=== PATIENT | male | born 1945 | race Caucasian/White ===

== ENCOUNTER 2024-01-01 00:23 | Inpatient (IN) | payer MEDICARE, SELFPAY ==
[2024-01-01] VITALS (50 sets, daily range): BP systolic 80–143; BP diastolic 36–90; PULSE 62–127; RESP 18–37; TEMP 36.5–37.6; O2SAT 86–100; BMI 33.2; BMI 32.3
--- NOTE | 2024-01-01 00:24 | ECG_ITS ---
APPROVED REPORT Exam: Resting ECG HR:121 bpm ECG Measurements Heart Rate 121 AXES WV 162 P 31 QRSd 84 QRS 51 QT 278 T 45 QTc 350 Conclusion SINUS TACHYCARDIA WITH OCCASIONAL SUPRAVENTRICULAR PREMATURE COMPLEXES LOW QRS VOLTAGE IN PRECORDIAL LEADS [QRS DEFLECTION < 1.0 mV IN CHEST LEADS] POSSIBLE INFERIOR MYOCARDIAL INFARCTION , PROBABLY OLD [30 ms Q WAVE IN II/aVF] ABNORMAL RHYTHM ECG UNCONFIRMED REPORT Electronically signed by : Jose Luis Cheng MD 01/02/2024 21:47:38
--- NOTE | 2024-01-01 00:26 | XR_ITS ---
PROCEDURE INFORMATION: Exam: XR Chest Exam date and time: 01/01/2024 12:45 AM Age: 78 years old Clinical indication: Shortness of breath; Additional info: Copd SOA TECHNIQUE: Imaging protocol: Radiologic exam of the chest. Views: 1 view. COMPARISON: No relevant prior studies available. FINDINGS: Lungs: Right mid lung pneumonia. Additional patchy consolidation in the left lower lobe. Pleural spaces: No large effusion or pneumothorax. Heart/Mediastinum: No evidence of mediastinal widening or cardiac silhouette enlargement; the mediastinum and heart appear within normal limits for contour and size. Vasculature: There are calcifications of the aortic arch. Bones/joints: No evidence of acute osseous abnormalities within the visualized portions of the thoracic spine and ribs. Osseous structures appear appropriate for patient age. IMPRESSION: Right mid lung pneumonia.
--- NOTE | 2024-01-01 00:32 | HMH.EDGENADL ---
Discharge Plan Disposition Patient Disposition: Admitted Prescriptions Prescriptions: No Action famotidine 40 mg Tablet 40 mg PO BID prednisone 20 mg Tablet 20 mg PO BID clopidogrel 75 mg Tablet 75 mg PO DAILY amlodipine 5 mg Tablet 5 mg PO DAILY ascorbic acid (vitamin C) [Vitamin C] 500 mg Tablet 500 mg PO DAILY duloxetine 60 mg Capsule,Delayed Release(Dr/Ec) 60 mg PO DAILY dapagliflozin propanediol [Farxiga] 10 mg Tablet 10 mg PO DAILY ezetimibe 10 mg Tablet 10 mg PO DAILY febuxostat 40 mg Tablet 40 mg PO DAILY pitavastatin calcium 4 mg Tablet 4 mg PO HS ferrous gluconate 324 mg (37.5 mg iron) Tablet 324 mg PO DAILY diltiazem HCl 360 mg capsule,extended release 24hr 360 mg PO DAILY Patient Comments: TAKE 1 CAPSULE BY MOUTH DAILY Referrals Follow up/Referrals: Provider,Referral, MD [Primary Care Provider] - See instructions Clinical Impressions Clinical Impression: Atrial fibrillation with rapid ventricular response Respiratory failure Qualifiers: Chronicity: acute Respiratory failure complication: hypoxia Qualified Code(s): J96.01 - Acute respiratory failure with hypoxia Pneumonia Qualifiers: Pneumonia type: due to unspecified organism Laterality: right Lung location: middle lobe of lung Qualified Code(s): J18.9 - Pneumonia, unspecified organism Sepsis Qualifiers: Sepsis type: sepsis due to unspecified organism Sepsis acute organ dysfunction status: with acute organ dysfunction Severe sepsis acute organ dysfunction type: acute respiratory failure Discharge ED Provider: Armani Aguilera Adult HPI General Chief complaint: Shortness of Breath/Dyspnea Stated complaint: SOA Time Seen by Provider: 01/01/24 00:26 History of Present Illness HPI narrative: 78-year-old male with history of COPD, diabetes, hypertension, hyperlipidemia, A-fib presents with chills. He reports that he got chills all over tonight about an hour prior to arrival. He reports chronic shortness of breath that has been ongoing for months. He reports is not significantly worse than normal. He reports chronic productive cough that is not significantly changed from normal. He is not on home oxygen. He has home nebulizer machines. He was recently prescribed steroids for back pain. He denies any chest pain abdominal pain or other symptoms at this time. Related Data Home Medications Medication Instructions Recorded Confirmed amlodipine 5 mg tablet 5 mg PO DAILY 01/01/24 01/01/24 ascorbic acid (vitamin C) 500 mg 500 mg PO DAILY 01/01/24 01/01/24 tablet (Vitamin C) clopidogrel 75 mg tablet 75 mg PO DAILY 01/01/24 01/01/24 dapagliflozin propanediol 10 mg 10 mg PO DAILY 01/01/24 01/01/24 tablet (Farxiga) diltiazem HCl 360 mg 360 mg PO DAILY 01/01/24 01/01/24 capsule,extended release 24 hr duloxetine 60 mg capsule,delayed 60 mg PO DAILY 01/01/24 01/01/24 release ezetimibe 10 mg tablet 10 mg PO DAILY 01/01/24 01/01/24 famotidine 40 mg tablet 40 mg PO BID 01/01/24 01/01/24 febuxostat 40 mg tablet 40 mg PO DAILY 01/01/24 01/01/24 ferrous gluconate 324 mg (37.5 mg 324 mg PO DAILY 01/01/24 01/01/24 iron) tablet pitavastatin calcium 4 mg tablet 4 mg PO HS 01/01/24 01/01/24 prednisone 20 mg tablet 20 mg PO BID 01/01/24 01/01/24 Allergies Allergy/AdvReac Type Severity Reaction Status Date / Time shellfish derived Allergy Verified 01/01/24 00:43 Sulfa (Sulfonamide Allergy Verified 01/01/24 00:43 Antibiotics) [facility] Disclaimer: The information contained in this section may have been updated after the patient was seen, as this information can be updated by other users. Social History Smoking Status: Current every day smoker alcohol intake: never current occupational status: previously employed Travel in the last 8 weeks: None ROS Obtained: Yes All systems reviewed & no additional complaints except as documented Physical Exam General General appearance: alert and in no apparent distress Head Head exam: atraumatic and normocephalic Eye Eye exam: Present normal appearance, PERRL and EOMI ENT ENT exam: Present normal oropharynx and normal external ear exam Neck Neck exam: Present normal inspection and full ROM Chest Chest inspection: Present normal inspection and symmetric chest wall rise; Absent tenderness Respiratory Respiratory exam: Present respiratory distress (Mild tachypnea) and other (Mildly diminished breath sounds bilaterally, no significant wheezing) Cardiovascular Cardiovascular exam: Present tachycardia and irregular rhythm Abdominal Exam Abdominal exam: Present soft and distention; Absent tenderness or guarding Extremities Exam Extremities exam: Present normal inspection; Absent edema or joint swelling Back Exam Back exam: Present normal inspection; Absent tenderness Neurological Exam Neurological exam: Present alert and oriented X3; Absent motor sensory deficit Psychiatric Psychiatric exam: Present normal affect and normal mood Skin Skin exam: Present warm, dry and normal color Lymphatic Lymphatic Findings: no adenopathy Medical Decision Making Medical Records Medical records reviewed: Yes I reviewed the patient's medical records. [place] Inquiry Pt receiving controlled substance: No [place] was queried for this patient: No Vital Signs: 01/01/24 00:33 01/01/24 00:30 01/01/24 01:09 Temperature 99.6 F Temperature Source Oral Pulse Rate 95 H 127 H Pulse Rate [Radial] 112 H Respiratory Rate 28 H 30 H 31 H Blood Pressure 101/69 L 120/72 Blood Pressure [Right Arm] 105/90 L Blood Pressure Mean [Right Arm] 95 Blood Pressure Source [Right Arm] Automatic Cuff Blood Pressure Position [Right Arm] Sitting 02 Sat by Pulse Oximetry 87 L 89 L 94 L Oxygen Delivery Method Room Air Nasal Cannula Oxygen Flow Rate (LPM) 2 Lab Data Lab results reviewed: Yes I reviewed the patient's lab results. Lab Results 01/01/24 00:25: SARS-CoV-2 (PCR) Not detected, Influenza A Untype (PCR) Not detected, Influenza Type B (PCR) Not detected 01/01/24 00:32: WBC 32.7 H*, RBC 4.99, Hgb 14.5, Hct 44.9, MCV 90.1, MCH 29.1, MCHC 32.4, RDW 16.0, Plt Count 413, MPV 7.8, Neut % (Auto) 92.1 H, Lymph % (Auto) 3.0 L, [place] % (Auto) 4.5, Eos % (Auto) 0.1, Baso % (Auto) 0.2, Neut # (Auto) 30.2 H, Lymph # (Auto) 1.0, [place] # (Auto) 1.5 H, Eos # (Auto) 0.0, Baso # (Auto) 0.1, VBG pH 7.39, VBG pCO2 33.4 L, VBG pO2 34.0, VBG HCO3 19.6 L, VBG Total CO2 20.7 L, VBG O2 Saturation 66.4, VBG Base Excess -5.4 L, Sodium 136, Potassium 4.6, Chloride 105, Carbon Dioxide 22, Anion Gap 13.6, BUN 32 H, Creatinine 1.30 H, Estimated Creat Clear 68, Estimated GFR 53 L, Est GFR ( Amer) 65, Glucose 202 H, Calcium 9.5, Magnesium 1.9, Total Bilirubin 0.5, AST 21, ALT 22, Alkaline Phosphatase 79, Total Protein 6.5, Albumin 3.9, Globulin 2.6, Albumin/Globulin Ratio 1.5 01/01/24 00:50: Urine Color Yellow, Urine Appearance Clear, Urine pH 6.0, Ur Specific [place] 1.020, Urine Protein 1+, Urine Glucose (UA) 2+, Urine Ketones Negative, Urine Blood Negative, Urine Nitrate Negative, Urine Bilirubin Negative, Urine Urobilinogen 0.2, Ur Leukocyte Esterase Negative 01/01/24 00:32 01/01/24 00:32 Orders (Tests/Meds): ED MEDICATIONS Generic Name Dose Route Start Last Admin Trade Name Freq PRN Reason Stop Dose Admin Ceftriaxone Sodium 2 gm/ 100 mls @ 200 mls/hr 01/01/24 01:03 Sodium Chloride IV 01/01/24 01:32 ONCE ONE Discontinued Medications Generic Name Dose Route Start Last Admin Trade Name Freq PRN Reason Stop Dose Admin Albuterol/Ipratropium 6 ml 01/01/24 00:26 01/01/24 01:11 Ipratropium/Albuterol 3 Ml Neb IH 01/01/24 00:27 6 ml ONCE ONE Administration Azithromycin 500 mg/ Sodium 250 mls @ 250 mls/hr 01/01/24 01:04 Chloride IV 01/01/24 01:05 ONCE ONE Ketorolac Tromethamine 15 mg 01/01/24 00:54 01/01/24 01:02 Ketorolac 30mg/Ml Vial IV 01/01/24 00:55 15 mg ONCE ONE Administration ORDERS Category Date Time Status CXR --portable [XR chest portable] Stat Exams 01/01/24 00:26 Completed BNP [Brain Natriuretic Peptide] Stat Lab 01/01/24 00:32 Received CBC w/Auto Diff [Complete Blood Count Auto Diff] Stat Lab 01/01/24 00:32 Results CMP [Comprehensive Metabolic Panel] Stat Lab 01/01/24 00:32 Completed Lactic Acid Stat Lab 01/01/24 00:32 Received Magnesium Stat Lab 01/01/24 00:32 Completed Rapid PCR Covid and Flu A/B Stat Lab 01/01/24 00:25 Completed UA [Urinalysis and Microscopic] Stat Lab 01/01/24 00:50 Results Blood Culture Stat Micro 01/01/24 00:46 Ordered VBG [Venous Blood Gas] Stat RT 01/01/24 00:32 Completed ECG initial [place] Routine Y 01/01/24 00:24 Completed Tissue Perfus/Sepsis Re-Eval Sepsis Re-Evaluation Performed: Yes Date Performed: 01/01/24 Time Performed: 01:17 Medical Decision Narrative: 78-year-old male with history of COPD, atrial fibrillation, diabetes presents with full body chills that started about an hour prior to arrival. Also reports chronic shortness of breath. Patient arrives on nasal cannula oxygen as he was satting 88% on room air at home per EMS. Reports chronic shortness of breath not significantly changed from normal. Specifically denies chest pain. History was obtained via conversation with patient, EMS. On arrival, patient is 99.6 Fahrenheit, normotensive, in atrial fibrillation with mild tachycardia, rates in the 110s to 120s, moving all extremities spontaneously. Full physical exam performed and significant for mildly diminished breath sounds bilaterally with trace wheezing. Mild tachypnea. Abdominal distention without tenderness. no lower extremity edema. Differential includes but is not limited to COVID, flu, pneumonia, heart failure, UTI,. Patient flagged positive for sepsis. Patient is not hypotensive. He does not appear to be hypovolemic. I am concerned that large-volume fluid resuscitation could worsen respiratory status, so I have not provided any IV fluid resuscitation at this time. Patient was given DuoNeb's x 2 for symptomatic management and correction of underlying abnormalities. Workup initiated including CBC CMP COVID flu chest x-ray EKG VBG BNP. On re-evaluation, patient remains normotensive, tachycardic, tachypneic. Reports mild symptomatic improvement after DuoNeb's. Laboratory workup independently interpreted by me and significant for white count of 32, creatinine of 1.3 (unknown baseline) glucose 200, VBG without respiratory acidosis. COVID flu negative, urine without significant evidence of infection. Imaging independently interpreted by me and significant for findings consistent with right middle lobe opacity consistent with pneumonia. See radiology read for full review of final results. EKG independently interpreted by me and significant for atrial fibrillation with rate of 121, Q-wave noted in lead III, no concerning ST changes. Steroid treatment was considered, but deemed unnecessary as history and exam appears more consistent with pneumonia rather than COPD exacerbation Given patient history, exam and workup, patient's presentation most likely represents sepsis and acute respiratory failure secondary to right middle lobe pneumonia and associated atrial fibrillation with rapid ventricular rate. Patient initiated on IV ceftriaxone and IV azithromycin for treatment of community acquired pneumonia. Interactive discussion was had with the hospitalist on-call for admission. Procedures Risk/Benefits of Procedure(s) Were Explained: Yes Critical Care Critical Care Time Critical Care Time: Yes Attestation: On 01/01/24, the high probability of a clinically significant, sudden or life threatening deterioration of the following system(s) respiratory required my full and direct attention, intervention and personal management. The time I documented below is in addition to time spent performing reported procedures but includes the following listed in this critical care notation. Total Time Total Critical Care Time: 36
[2024-01-01 00:33] LABS: Coronavirus 19, PCR Not Detected (NotDetected); Influenza A, PCR Not Detected (NotDetected); Influenza B, PCR Not Detected (NotDetected)
[2024-01-01 00:42] LABS: Basophils # 0.1 K/mm3 (0-0.2); Basophils % 0.2 % (0.1-2.0); Eosinophils % 0.1 % (0.1-12.0); Hematocrit 44.9 % (42.0-52.0); Hemoglobin 14.5 g/dL (14.1-18.0); Mean Corpuscular HGB Conc 32.4 g/dL (31.8-35.4); Mean Corpuscular Hemoglobin 29.1 pg (27.0-31.2); Mean Corpuscular Volume 90.1 fl (80-94); Mean Platelet Volume 7.8 fl (7.4-10.4); Monocytes # 1.5 K/mm3 (0.1-1.0); Monocytes % 4.5 % (1.7-9.3); Neutrophils # 30.2 K/mm3 (1.8-7.8); Neutrophils % 92.1 % (37.0-80.0); Platelet Count 413 K/mm3 (142-424); Red Blood Count 4.99 M/mm3 (4.60-6.20); VBG Base Excess -5.4 mmol/L (-2.4-2.3); VBG HCO3 19.6 mmol/L (23-30); VBG Oxygen Saturation 66.4 % (50-70); VBG PCO2 33.4 mmol/L (35-51); VBG PH 7.39 mmol/L (7.31-7.41); VBG Total CO2 20.7 mmol/L (23-27); White Blood Count 32.7 K/mm3 (4.8-10.8)
[2024-01-01 00:44] LABS: MANUAL DIFFERENTIAL MANUAL DIFFERENTIAL (MANUAL DIFF)
[2024-01-01 00:48] LABS: Alanine Aminotransferase 22 U/L (12-78); Albumin Level 3.9 g/dl (3.5-5.0); Albumin/Globulin Ratio 1.5 (1.1-1.8); Alkaline Phosphatase 79 U/L (38-126); Anion Gap 13.6 mEq/L (5-15); Aspartate Amino Transferase 21 U/L (17-59); Bilirubin,Total 0.5 mg/dl (0.2-1.3); Blood Urea Nitrogen 32 mg/dl (9-20); Calcium 9.5 mg/dl (8.4-10.2); Carbon Dioxide 22 mmol/L (22.0-30.0); Chloride 105 mmol/L (98-107); Creatinine Clearance Estimated 68 mL/min (50-200); Estimated Glomerular Filt Rate 53 ml/min (>60); GFR (African American) 65 ML/MIN (>60); Globulin 2.6 g/dL (1.3-3.2); Glucose 202 mg/dl (74-100); Magnesium 1.9 mg/dl (1.6-2.3); Potassium 4.6 mmoL/L (3.5-5.1); Sodium 136 mmol/L (136-145); Total Protein,Serum 6.5 g/dl (6.3-8.2)
[2024-01-01 00:56] LABS: Microscopic, Urine URINE MICROSCOPIC (MICROSCOPIC)
[2024-01-01 00:57] LABS: Appearance,Urine CLEAR (Clear); Bilirubin,Urine Negative (Negative); Blood, Urine Negative (Negative); Color,Urine YELLOW (Yellow); Glucose,Urine (UA) 2+ (Negative); Ketones,Urine Negative (Negative); Leukocyte Esterase,Urine Negative (Negative); Nitrate,Urine Negative (Negative); Protein,Urine 1+ (Negative); Urobilinogen,Urine 0.2 EU/dl (0.2)
[2024-01-01 00:59] LABS: NT Pro Brain Natriuretic Pep. 303 pg/mL (0-450)
[2024-01-01] MEDS: KETOROLAC 30MG/ML VIAL 15 MG IV (01:02)
--- NOTE | 2024-01-01 01:10 | PC.NURSE ---
ED doctor on phone with hospitalist
[2024-01-01] MEDS: IPRATROPIUM/ALBUTEROL 3 ML NEB 6 ML IH (01:11)
[2024-01-01 01:13] LABS: Bacteria,Urine 1+ /lpf; Mucus,Urine 1+ /lpf; RBC,Urine Occasional #/hpf (0-3)
[2024-01-01] MEDS: CEFTRIAXONE SODIUM 2 GM in 0.9 % SODIUM CHLORIDE 100 ML IV (01:15)
[2024-01-01] MEDS: AZITHROMYCIN 500 MG in 0.9 % SODIUM CHLORIDE 250 ML 250 MG IV ×2 (01:19→22:15)
[2024-01-01 01:27] LABS: Lactic Acid 2.7 mmol/L (0.7-2.1)
[2024-01-01 01:33] LABS: Lymphocytes % 6 % (10-50); Monocytes % 3 % (2-9); Neutrophils % 91 % (42-76); Total Cells Counted 100
[2024-01-01 01:34] LABS: Platelet Estimate Normal; RBC Morphology Normal
--- NOTE | 2024-01-01 01:37 | PC.NURSE ---
Spoke with Ev about pt admission. Advised that the bed being given to the pt currently has another pt in it and as soon as that pt is released they will get it cleaned and let us know when we can move our pt up to his room. RN and aware. CR
--- NOTE | 2024-01-01 01:39 | P.HP_ITS ---
History of Present Illness *Admission Date: 01/01/24 *Reason for visit:: sepsis *History of present illness: 78 year old male presented to [facility] ED w/ c/o body chills, sob, and feeling ill. PHMX of COPD, a fib, HTN, DM, CAD,and gout. Pt states his physicians are at [place]. He denies any chest pain or recent exposure to sickness. The ED work revealed a fib rvr, leukocytosis of 32.7, creatinine of 1.3, lactate of 2.7, and pneumonia located in the right middle lobe. The pt received two duonebs upon arrival to the ED. The pt meets sepsis criteria with a HR of 127, RR of 31, and leukocytosis of 32.7. His COVID/flu swab was negative in ED. The ED physician consulted the hospitalist team for further medical management. The pt had blood cultures obtain prior to be started on rocpehin and azithromycin. Upon admission assessment the pt appears to be resting comfortable. He is still tachycardia and tachypenic. He has bilateral lower leg edema. [facility] Disclaimer: The information contained in this section may have been updated after the patient was seen, as this information can be updated by other users. Medical History (Updated 01/01/24 @ 16:04 by Alin Meraz MD) Acute respiratory failure with hypoxia Atrial fibrillation with rapid ventricular response CAD in [place] artery COPD (chronic obstructive pulmonary disease) Diabetes Gout HLD (hyperlipidemia) HTN (hypertension) Obesity Peripheral arterial disease Pneumonia Respiratory failure Septic shock Social History (Updated 01/01/24 @ 01:18 by Armani Aguilera MD) Smoking Status: Current every day smoker alcohol intake: never current occupational status: previously employed Travel in the last 8 weeks: None Review of Systems *Cardiovascular Cardiovascular: Reports system reviewed and no additional complaints, except as documented and Reports dyspnea *Respiratory Respiratory: Reports dyspnea *Gastrointestinal Gastrointestinal: Reports system reviewed and no additional complaints, except as documented *Genitourinary Genitourinary: Reports system reviewed and no additional complaints, except as documented *Musculoskeletal Musculoskeletal: Reports muscle weakness *Neurologic Neurologic: Reports system reviewed and no additional complaints, except as documented Meds Home Medications and Allergies Home Medications Medication Instructions Recorded Confirmed Type amlodipine 5 mg tablet 5 mg PO DAILY Hypertension 01/01/24 01/01/24 History ascorbic acid (vitamin C) 500 mg 500 mg PO DAILY Supplement 01/01/24 01/01/24 History tablet (Vitamin C) clopidogrel 75 mg tablet 75 mg PO DAILY Blood Thinner 01/01/24 01/01/24 History dapagliflozin propanediol 10 mg 10 mg PO DAILY Diabetes 01/01/24 01/01/24 History tablet (Farxiga) diltiazem HCl 360 mg 360 mg PO DAILY Hypertension 01/01/24 01/01/24 History capsule,extended release 24 hr duloxetine 60 mg capsule,delayed 60 mg PO DAILY Depression 01/01/24 01/01/24 History release ezetimibe 10 mg tablet 10 mg PO DAILY Diabetes 01/01/24 01/01/24 History famotidine 40 mg tablet 40 mg PO BID GERD 01/01/24 01/01/24 History febuxostat 40 mg tablet 40 mg PO DAILY GOUT 01/01/24 01/01/24 History ferrous gluconate 324 mg (37.5 mg 324 mg PO DAILY Supplement 01/01/24 01/01/24 History iron) tablet pitavastatin calcium 4 mg tablet 4 mg PO HS Cholesterol 01/01/24 01/01/24 History prednisone 20 mg tablet 0 mg PO DAILY INFLAMMATION 01/01/24 01/01/24 History New Prescriptions to Start Prescriptions: Allergies Allergy/AdvReac Type Severity Reaction Status Date / Time shellfish derived Allergy Verified 01/01/24 00:43 Sulfa (Sulfonamide Allergy Verified 01/01/24 00:43 Antibiotics) Exam Data for Last 24 hours Vital signs and Labs for Last 24 Hours: Temp Pulse Resp BP Pulse Ox O2 Del Method O2 Flow Rate 99.6 F 127 H 31 H 120/72 94 L Room Air 2 01/01/24 00:33 01/01/24 01:09 01/01/24 01:09 01/01/24 01:09 01/01/24 01:09 01/01/24 00:33 01/01/24 00:30 Laboratory Results - last 24 hr 01/01/24 00:25: SARS-CoV-2 (PCR) Not detected, Influenza A Untype (PCR) Not detected, Influenza Type B (PCR) Not detected 01/01/24 00:32: WBC 32.7 H*, RBC 4.99, Hgb 14.5, Hct 44.9, MCV 90.1, MCH 29.1, MCHC 32.4, RDW 16.0, Plt Count 413, MPV 7.8, Neut % (Auto) 92.1 H, Lymph % (Au to) 3.0 L, [place] % (Auto) 4.5, Eos % (Auto) 0.1, Baso % (Auto) 0.2, Neut # (Auto) 30.2 H, Lymph # (Auto) 1.0, [place] # (Auto) 1.5 H, Eos # (Auto) 0.0, Baso # (Auto) 0.1, Total Counted 100, Neutrophils % (Manual) 91 H, Lymphocytes % (Manual) 6 L, Monocytes % (Manual) 3, Platelet Estimate Normal, RBC Morphology Normal, VBG pH 7.39, VBG pCO2 33.4 L, VBG pO2 34.0, VBG HCO3 19.6 L, VBG Total CO2 20.7 L, VBG O2 Saturation 66.4, VBG Base Excess -5.4 L, Sodium 136, Potassium 4.6, Chloride 105, Carbon Dioxide 22, Anion Gap 13.6, BUN 32 H, Creatinine 1.30 H, Estimated Creat Clear 68, Estimated GFR 53 L, Est GFR ( Amer) 65, Glucose 202 H, Lactate 2.7 H, Calcium 9.5, Magnesium 1.9, Total Bilirubin 0.5, AST 21, ALT 22, Alkaline Phosphatase 79, NT-Pro-B Natriuret Pep 303, Total Protein 6.5, Albumin 3.9, Globulin 2.6, Albumin/Globulin Ratio 1.5 01/01/24 00:50: Urine Color Yellow, Urine Appearance Clear, Urine pH 6.0, Ur Specific [place] 1.020, Urine Protein 1+, Urine Glucose (UA) 2+, Urine Ketones Negative, Urine Blood Negative, Urine Nitrate Negative, Urine Bilirubin Negative, Urine Urobilinogen 0.2, Ur Leukocyte Esterase Negative, Urine RBC Occasional, Urine WBC 3-5, Ur Squamous Epith Cells 3-5, Urine Bacteria 1+, Urine Mucus 1+ I & O for Last 24 hours: Intake & Output 12/29/23 12/30/23 12/31/23 01/01/24 23:59 23:59 23:59 23:59 Weight 102.058 kg *Routine HEENT Exam Head: Present normocephalic Eye: Present EOMI ENT: Present mucous membranes dry *Routine Neck Exam Neck: Present full ROM *Routine Respiratory Exam Respiratory: Present wheezes, diminished air movement and symmetric chest movement *Routine Cardiovascular Exam Cardiovascular: Present tachycardia and irregular rhythm *Routine Abdominal Exam Abdominal: Present soft, normoactive bowel sounds and distended; Absent tenderness *Routine Rectal Exam Rectal:: deferred *Routine Genitalia Exam Genitalia:: deferred *Routine Extremities Exam Extremities: Present edema and full ROM *Routine Skin Exam Skin: Present intact *Routine Neurological Exam Neurological: Present alert and oriented X3 Assessment and Plan *Assessment and plan (1) Septic shock: Status: Acute Category: Medical Code(s): A41.9 - Sepsis, unspecified organism; R65.21 - Severe sepsis with septic shock (2) Pneumonia: Status: Acute Qualifiers: Laterality: right Lung location: middle lobe of lung Pneumonia type: due to unspecified organism Qualified Code(s): J18.9 - Pneumonia, unspecified organism Category: Medical Code(s): J18.9 - Pneumonia, unspecified organism (3) Respiratory failure: Status: Acute Qualifiers: Chronicity: acute Respiratory failure complication: hypoxia Qualified Code(s): J96.01 - Acute respiratory failure with hypoxia Category: Medical Code(s): J96.90 - Respiratory failure, unspecified, unspecified whether with hypoxia or hypercapnia (4) ANABELLE (acute kidney injury): Status: Acute Category: Medical Code(s): N17.9 - Acute kidney failure, unspecified (5) Atrial fibrillation with rapid ventricular response: Status: Acute Category: Medical Code(s): I48.91 - Unspecified atrial fibrillation (6) COPD (chronic obstructive pulmonary disease): Status: Acute Category: Medical Code(s): J44.9 - Chronic obstructive pulmonary disease, unspecified (7) Diabetes: Status: Acute Category: Medical Code(s): E11.9 - Type 2 diabetes mellitus without complications (8) HLD (hyperlipidemia): Status: Acute Category: Medical Code(s): E78.5 - Hyperlipidemia, unspecified (9) HTN (hypertension): Status: Acute Category: Medical Code(s): I10 - Essential (primary) hypertension (10) Gout: Status: Acute Category: Medical Code(s): M10.9 - Gout, unspecified (11) Obesity: Status: Acute Category: Medical Code(s): E66.9 - Obesity, unspecified Plan 78 year old male presented to [facility] ED w/ c/o body chills, sob, and feeling ill. PHMX of COPD, a fib, HTN, DM, CAD,and gout. Pt states his physicians are at [place]. He denies any chest pain or recent exposure to sickness. The ED work revealed a fib rvr, leukocytosis of 32.7, creatinine of 1.3, lactate of 2.7, and pneumonia located in the right middle lobe. The pt received two duonebs upon arrival to the ED. The pt meets sepsis criteria with a HR of 127, RR of 31, and leukocytosis of 32.7. His COVID/flu swab was negative in ED. The ED physician consulted the hospitalist team for further medical management. The pt had blood cultures obtain prior to be started on Rocephin and azithromycin. Upon admission assessment the pt appears to be resting comfortable. He is still tachycardia and tachypenic. He has bilateral lower leg edema. I have placed a consult for cardiology and pulmonary. Plan as to follow: SEPSIS PNEUMONIA RESP FAILURE -HR of 127, RR of 31, and leukocytosis of 32.7. -Patient developed hypotension over the course the morning. Necessitated sepsis bolus, has received 3 L and continues to be hypotensive. Initiated on Levophed at 8 -Repeat CBC in the morning -Holding IV bolus of fluids due to fluid overload -> BNP pending and echo ordered for A.M -Pulmonary consult placed, thank you for the help!! -Antibiotics broadened to cefepime 2 g every 12 hours IV and IV azithromycin -Duonebs QID -Maintain o2 above 92% -Chest xray reviewed and reveals pneumonia in the right lobe -lactate 2.7-> continue to trend. Received IV antibiotics in the ED - holding fluid bolus for now. -Blood cultures pending -CT of the chest obtained, positive bilateral pneumonia with dense consolidation. Personally reviewed -Cannot rule out PE at this time, initiated on heparin drip therapeutically. ATRIAL FIBRILLATION W/ RVR -HX of a fib. Home medication is diltiazem 360 and plavix 75mg. -Cardiology consult placed, thank you for the recommendations!! -RVR in setting of sepsis -Continue home medications ANABELLE -Creatinine 2.1 this morning. Monitor for improvement with BMP this afternoon. CMP, CBC, magnesium ordered for the morning. Likely prerenal in the setting of sepsis DM -SSI insulin -A1C 7.0 COPD HLD HTN GOUT -Holding norvasc, statin, febuxostat due to sepsis; continuing duloxetine 60mg, ezetimibe 10mg, famotidine 40mg, and prednisone 20mg TOBACCO ABUSE -nicotine patch PRN OBESITY -complicates all aspects of care FULL CODE CARDIAC DIET DVT: Heparin gtt Rounded on patient after nurse practitioner. Personally examined and interviewed patient. Agree with exam findings and care plan as documented.
--- NOTE | 2024-01-01 01:39 | PC.NURSE ---
family at bedside, no needs at this time
--- NOTE | 2024-01-01 01:54 | CA_ITS ---
APPROVED REPORT EXAM: Comprehensive 2D, Doppler, and color-flow Echocardiogram Rehab Assistant: Brook Valero, RT(R) Ht: 5 ft 9 in Wt: 225lbs BSA: 2.17 BP: 120/72 mmHg Indications: Pneumonia, COPD, AFIB with RVR, hypotension, hypoxic event, currently on bipap, RF, smoker, edema, obesity, HTN, DM, SOB. Limited windows secondary to body habitus, patient positioning, and lung interference. 2D Dimensions Left Atrium 4.54 cm M: 3.0 - 4.0 EF AP4 49.80 % LVOT 2.06 cm (M/F) 1.5-2.5 GL Strain -14.5 % M-Mode Dimensions RVDd 3.14 cm (0.9-2.6) LVDd 5.92 cm (3.5-5.7) Ao Diam 3.92 cm (2.0-3.7) LVDs 5.25 cm (3.5-5.7) IVSd 0.93 cm (0.6-1.1) PWd 1.08 cm (0.6-1.1) EF (Teich) 24.20% FS 11.30% EDV (Teich) 174.60 mL ESV (Teich) 132.40 mL LV Diastology E Decel Time 206 (160-240 msec) E/A Ratio 0.6 Mitral Valve MV E Max Samuel. 63.0 (40-130 cm/s) MV A Velocity 104.0 (40-130 cm/s) E/A Ratio 0.61 MV Decel. Time 206 (160-240 ms) Left Ventricle The left ventricle is normal size. The left ventricular systolic function is normal. The left ventricular ejection fraction is within the normal range. There is increased LV wall thickness. There is moderate hypokinesis of the septal and inferoseptal LV martin. Transmitral Doppler flow pattern suggests impaired LV relaxation. LVEF is 50%. Right Ventricle The right ventricle is mildly dilated. The right ventricular systolic function is normal. Atria The left atrium size is normal. The right atrium size is normal. The interatrial septum is not well-visualized. Aortic Valve The aortic valve is mildly thickened. There is no aortic valvular stenosis. No aortic regurgitation is present. Mitral Valve The mitral valve leaflets are mildly thickened. No evidence of mitral valve stenosis. Trace mitral regurgitation. Tricuspid Valve The tricuspid valve leaflets are thin and pliable. Trace tricuspid regurgitation. There is insufficient TR jet to estimate RVSP. Pulmonic Valve The pulmonary valve is normal in structure. Trace pulmonic regurgitation. Great Vessels The aortic root is normal in size. The ascending aorta is not well-visualized. The IVC is not well-visualized. Pericardium There is no pericardial effusion. Other Information Study Quality: Technically Difficult Conclusion Technically difficult study due to poor acoustic windows. Low normal LV systolic function (LVEF 50%). Moderate hypokinesis of the septal and inferoseptal LV martin. Mild RV dilation with normal RV function. No significant valvular stenosis or regurgitation. Electronically signed by : Pattie Purdy MD 01/05/2024 19:38:28
--- NOTE | 2024-01-01 03:38 | PC.NURSE ---
report called to RAMYA Dominguez
[2024-01-01 04:56] LABS: Reflex Lactic Add Lactic Reflex
[2024-01-01] MEDS: LEVALBUTEROL 1.25MG/3ML NEB 1.25 MG IH ×4 (05:20→22:05)
[2024-01-01] MEDS: IPRATROPIUM BROMIDE 0.5 MG/2.5ML SOLUTION IH ×4 (05:20→22:05)
--- NOTE | 2024-01-01 05:35 | ECG_ITS ---
APPROVED REPORT Exam: Resting ECG HR:119 bpm ECG Measurements Heart Rate 119 AXES QRSd 85 QRS 56 QT 310 T 28 QTc 381 Conclusion ATRIAL FIBRILLATION WITH RAPID VENTRICULAR RESPONSE ABNORMAL RHYTHM ECG INTERPRETATION BASED ON A DEFAULT AGE OF 40 YEARS UNCONFIRMED REPORT Electronically signed by : Jose Luis Cheng MD 01/02/2024 21:47:25
--- NOTE | 2024-01-01 05:44 | EXP.EVENT.NO ---
Called to pt room due to hypoxia. Pt on non rebreather, tachypenic, and hypotensive. Pt had gotten up to use bathroom and staff was struggling to have 02 return to baseline. I called ER MD to room. Pt was started on BIPAP. 500 mL of LR ordered to be given due to hypotension. EKG ordered and reviewed. No ischemic changes noted. Pt inpatient status changed from medsurg to step down unit.
[2024-01-01] MEDS: LACTATED RINGERS 1000ML 500 ML 999 ML IV (06:17)
[2024-01-01] MEDS: humaLOG 100 UNITS/ML 3ML VIAL (SSI) SQ ×3 (06:18→21:18)
[2024-01-01 06:21] LABS: POC Glucose,Bedside 206 (70-110)
[2024-01-01 07:08] LABS: Basophils # 0.1 K/mm3 (0-0.2); Basophils % 0.3 % (0.1-2.0); Hematocrit 42.8 % (42.0-52.0); Hemoglobin 13.6 g/dL (14.1-18.0); Lymphocytes # 0.9 K/mm3 (0.7-4.5); Lymphocytes % 5.6 % (10-50); Mean Corpuscular HGB Conc 31.8 g/dL (31.8-35.4); Mean Corpuscular Hemoglobin 29.3 pg (27.0-31.2); Mean Corpuscular Volume 92.3 fl (80-94); Mean Platelet Volume 7.8 fl (7.4-10.4); Monocytes # 0.9 K/mm3 (0.1-1.0); Monocytes % 5.3 % (1.7-9.3); Neutrophils # 14.8 K/mm3 (1.8-7.8); Neutrophils % 88.8 % (37.0-80.0); Platelet Count 292 K/mm3 (142-424); Red Blood Count 4.64 M/mm3 (4.60-6.20); White Blood Count 16.6 K/mm3 (4.8-10.8)
[2024-01-01 07:15] LABS: Chloride 108 mmol/L (98-107); Sodium 134 mmol/L (136-145)
[2024-01-01 07:16] LABS: Potassium 3.7 mmoL/L (3.5-5.1)
[2024-01-01 07:18] LABS: Blood Urea Nitrogen 39 mg/dl (9-20); Creatinine Clearance Estimated 42 mL/min (50-200); Estimated Glomerular Filt Rate 31 ml/min (>60); GFR (African American) 37 ML/MIN (>60)
[2024-01-01 07:19] LABS: Anion Gap 14.7 mEq/L (5-15); Calcium 8.5 mg/dl (8.4-10.2); Carbon Dioxide 15 mmol/L (22.0-30.0); Glucose 209 mg/dl (74-100)
[2024-01-01 07:21] LABS: Lactic Acid Follow Up (RFLX 1) 4.2 mmol/L (0.7-2.1)
--- NOTE | 2024-01-01 07:58 | PC.NURSE ---
Patient arrived to floor by wheelchair on 2L NC; during assessment BP Low, Increased RR 28, HR >100; increase SOA, respiratory called to room placed patient on Venti-mask with 02 88%; patient then transferred to bedside commode had BM became more SOA, placed on Non-rebreather with 15L O2 respiratory, hospitalist called to room; EKG done - Afib with RVR, started Bolus LR 500mg with improved to BP 115/78. Recv'd v.o. to place pat on continuous Bi-pap and change level of care to Step-down. Patient approximately after 1hr patient BP dropped to 83/50 recvd v.o. hospitalist, JO ANN Lanza to give additionsl LR 500mL with rate 500ml/hr. Patient resting in bed with O2 92%.
--- NOTE | 2024-01-01 08:32 | P.CONPHA_ITS ---
[facility] Heparin Dosing Demographic Data Admission date:: 01/01/24 Date: 01/01/24 Time: 08:33 Allergies Allergy/AdvReac Type Severity Reaction Status Date / Time shellfish derived Allergy Verified 01/01/24 00:43 Sulfa (Sulfonamide Allergy Verified 01/01/24 00:43 Antibiotics) Height: 1.75 m Weight: 99.065 kg Indication Medication therapy:: Heparin Current Indications:: ATRIAL FIBRILLATION - MEDIUM DOSE PROTOCOL Current Active Problems (Updated 01/01/24 @ 16:04 by Alin Meraz MD) ANABELLE (acute kidney injury) (Acute) Obesity (Acute) Gout (Acute) HTN (hypertension) (Acute) HLD (hyperlipidemia) (Acute) Diabetes (Acute) COPD (chronic obstructive pulmonary disease) (Acute) Respiratory failure (Acute) Pneumonia (Acute) Atrial fibrillation with rapid ventricular response (Acute) Peripheral arterial disease (Acute) CAD in [place] artery (Acute) Septic shock (Acute) Acute respiratory failure with hypoxia (Acute) Sepsis (Acute) CVA?: No Bleeding problem?: No Kidney disease?: No NC?: No Additional History:: HYPERTENSION, HYPERLIPIDEMIA, OBESITY, COPD, DIABETES, ATRIAL FIBRILLATION WITH RVR. Desired PTT range:: 50-75 seconds Labs Anticoagulation Lab Results:: 01/01/24 01/01/24 00:32 06:31 Hgb 14.5 13.6 L Hct 44.9 42.8 Plt Count 413 292 D Monitoring Dose Monitor 1: Date: 01/01/24 Time: 08:11 PTT Result:: BASELINE PTT: 29.9 SECONDS Infusion Rate:: START HEPARIN DRIP AT 1400 UNITS/HOUR = 28 ML/HOUR AND BOLUS 5000 UNITS HEPARIN IV ONCE. Comment:: PLATELET COUNT = 292K Dose Monitor 2: Date: 01/01/24 Time: 14:30 PTT Result:: 190.0 SECONDS Infusion Rate:: DECREASE HEPARIN DRIP TO 1100 UNITS/HOUR = 22 ML/HOUR. Dose Monitor 3: Date: 01/01/24 Time: 17:00 PTT Result:: 200.0 SECONDS Infusion Rate:: DECREASED HEPARIN DRIP TO 800 UNITS/HOUR = 16 ML/HOUR. Dose Monitor 4: Date: 01/01/24 Time: 21:44 PTT Result:: 81.1 SECONDS Infusion Rate:: DECREASED HEPARIN DRIP TO 700 UNITS/HOUR = 14 ML/HOUR. Comment:: PTT WAS SCHEDULED FOR 2300, BUT WIRE BOUND BOX MACHINE HELPER RN THOUGHT THAT MAYBE PREVIOUS LEVELS WERE DRAWN FROM THE LINE THE HEPARIN DRIP WAS RUNNING IN. A RESULT, PTT WAS DRAWN OVER AN HOUR EARLY PER LICO NOTE. Dose Monitor 5: Date: 01/02/24 Time: 04:00 PTT Result:: 55.1 SECONDS Infusion Rate:: CONTINUED HEPARIN DRIP AT 700 UNITS/HOUR = 14 ML/HOUR. Dose Monitor 6: Date: 01/02/24 Time: 10:00 PTT Result:: NOT DRAWN Infusion Rate:: DRIP STOPPED 01/02/24 AT 10:47, PATIENT STARTED ON LOVENOX 100 MG EVERY 12 HOURS. Comment:: PTT WAS ORIGINALLY PLACED FOR 1200, CHANGED TO 1000 SINCE THERE WAS A MASSIVE DROP BETWEEN DOSE MONITOR 4 AND 5, AND 1000 WOULD KEEP ON THE EVERY 6 HOUR MONITORING SCHEDULE. Core Measures Is INR > or = 2 at discharge?: No Most Recent Labs:: Laboratory Results - last 24 hr 01/01/24 00:25: SARS-CoV-2 (PCR) Not detected, Influenza A Untype (PCR) Not detected, Influenza Type B (PCR) Not detected 01/01/24 00:32: WBC 32.7 H*, RBC 4.99, Hgb 14.5, Hct 44.9, MCV 90.1, MCH 29.1, MCHC 32.4, RDW 16.0, Plt Count 413, MPV 7.8, Neut % (Auto) 92.1 H, Lymph % (Auto) 3.0 L, [place] % (Auto) 4.5, Eos % (Auto) 0.1, Baso % (Auto) 0.2, Neut # (Auto) 30.2 H, Lymph # (Auto) 1.0, [place] # (Auto) 1.5 H, Eos # (Auto) 0.0, Baso # (Auto) 0.1, Total Counted 100, Neutrophils % (Manual) 91 H, Lymphocytes % (Manual) 6 L, Monocytes % (Manual) 3, Platelet Estimate Normal, RBC Morphology Normal, VBG pH 7.39, VBG pCO2 33.4 L, VBG pO2 34.0, VBG HCO3 19.6 L, VBG Total CO2 20.7 L, VBG O2 Saturation 66.4, VBG Base Excess -5.4 L, Sodium 136, P otassium 4.6, Chloride 105, Carbon Dioxide 22, Anion Gap 13.6, BUN 32 H, Creatinine 1.30 H, Estimated Creat Clear 68, Estimated GFR 53 L, Est GFR ( Amer) 65, Glucose 202 H, Hemoglobin A1c 7.0 H, Lactate 2.7 H, Calcium 9.5, Magnesium 1.9, Total Bilirubin 0.5, AST 21, ALT 22, Alkaline Phosphatase 79, NT-Pro-B Natriuret Pep 303, Total Protein 6.5, Albumin 3.9, Globulin 2.6, Albumin/Globulin Ratio 1.5 01/01/24 00:50: Urine Color Yellow, Urine Appearance Clear, Urine pH 6.0, Ur Specific [place] 1.020, Urine Protein 1+, Urine Glucose (UA) 2+, Urine Ketones Negative, Urine Blood Negative, Urine Nitrate Negative, Urine Bilirubin Neg ative, Urine Urobilinogen 0.2, Ur Leukocyte Esterase Negative, Urine RBC Occasional, Urine WBC 3-5, Ur Squamous Epith Cells 3-5, Urine Bacteria 1+, Urine Mucus 1+ 01/01/24 06:14: POC Glucose 206 H 01/01/24 06:31: WBC 16.6 H D, RBC 4.64, Hgb 13.6 L, Hct 42.8, MCV 92.3, MCH 29.3, MCHC 31.8, RDW 16.0, Plt Count 292 D, MPV 7.8, Neut % (Auto) 88.8 H, Lymph % (Auto) 5.6 L, [place] % (Auto) 5.3, Eos % (Auto) 0.0 L, Baso % (Auto) 0.3, Neut # (Auto) 14.8 H, Lymph # (Auto) 0.9, [place] # (Auto) 0.9, Eos # (Auto) 0.0, Baso # (Auto) 0.1, Sodium 134 L, Potassium 3.7, Chloride 108 H, Carbon Dioxide 15 L, Anion Gap 14.7, BUN 39 H, Creatinine 2.10 H D, Estimated Creat Clear 42, Estimated GFR 31 L, Est GFR ( Amer) 37 L D, Glucose 209 H, Lactate 4.2 H, Calcium 8.5 If INR was < than 2.0 why was therapy stopped?: CHANGED TO LOVENOX Were Heparin and Warfarin started on the same day?: No If not, why?: CHANGED TO LOVENOX
[2024-01-01] MEDS: NOREPINEPHRINE BITARTRATE/D5W 8 MG/250 ML PLAST..BAG 3.75 MG IV (08:50)
[2024-01-01] MEDS: HEPARIN 25,000 UNITS/D5W 500 ML 28 UNIT IV (08:51)
[2024-01-01] MEDS: LACTATED RINGERS 1000ML 1,000 ML 500 ML IV (08:51)
[2024-01-01] MEDS: HEPARIN SODIUM 5,000 UNIT/ML VIAL 5000 UNIT IV (08:56)
[2024-01-01 09:00] LABS: PTT Heparin (inpatient only) 29.9 Seconds (23.6-34.0)
[2024-01-01 09:01] LABS: ABG Base Excess -13.2 mmol/L (-2.4-2.3); ABG HCO3 12.1 mmhg (22.0-26.0); ABG Oxygen Saturation 87 % (90-100); ABG PCO2 21.7 mmhg (35.0-45.0); ABG PH 7.37 mmol/L (7.35-7.45); ABG PO2 53.1 mmhg (80-100); ABG TCO2 12.8 mmhg (23-27)
[2024-01-01 09:01] LABS: Reflex Lactic (2 hrs) Add Lactic Reflex
[2024-01-01 09:02] LABS: Allen's Test ACCEPTABLE; Oxygen 50% %; Source R RADIAL
[2024-01-01] MEDS: ASCORBIC ACID 500MG TAB 500 MG PO (09:03)
[2024-01-01] MEDS: FAMOTIDINE 20MG TABLET 20 MG PO ×2 (09:04→21:17)
[2024-01-01] MEDS: PAT OWN MED ***EZETIMIBE 10MG 10 MG PO (09:04)
[2024-01-01] MEDS: FERROUS GLUCONATE 324 MG 324 EACH PO (09:04)
[2024-01-01] MEDS: PAT OWN MED ***CLOPIDOGREL 75MG 75 MG PO (09:04)
[2024-01-01] MEDS: FEBUXOSTAT 40 MG 40 EACH PO (09:05)
[2024-01-01] MEDS: PAT OWN MED ***DULOXETINE 60 MG 1 EACH PO (09:05)
[2024-01-01] MEDS: predniSONE 20MG TAB 20 MG PO ×2 (09:06→21:17)
--- NOTE | 2024-01-01 09:47 | EXP.PULM.CON ---
History of Present Illness History of present illness: Mr. Garcia is a 78-year-old male with reported history of greater than 30 PPD, COPD, A-fib, hypertension, diabetes and CKD presented to the ER with worsening respiratory distress and increasing oxygen close and pulmonary was called for further evaluation and management. Patient admits worsening fevers and bodyaches for the last 24 hours. Denies any worsening symptoms prior to that. [facility] Disclaimer: The information contained in this section may have been updated after the patient was seen, as this information can be updated by other users. Medical History (Updated 01/01/24 @ 11:32 by Felipa Tamez MD) Acute respiratory failure with hypoxia Septic shock Social History (Updated 01/01/24 @ 01:18 by Armani Aguilera MD) Smoking Status: Current every day smoker alcohol intake: never current occupational status: previously employed Travel in the last 8 weeks: None Review of Systems Constitutional Constitutional: Reports anorexia, Reports body ache(s), Reports chills, Reports fatigue, Reports fever(s) and Reports weakness Eyes Eyes: Denies eye discharge, Denies dry eyes, Denies irritation and Denies itchy eyes ENT Ears, Nose, Mouth, and Throat: Denies epistaxis, Denies facial pain, Denies lip swelling and Denies throat swelling *Cardiovascular Cardiovascular: Reports dyspnea and Reports dyspnea on exertion *Respiratory Respiratory: Denies change in phlegm color, Reports chest congestion, Reports cough, Reports dyspnea, Reports dyspnea on exertion, Reports excessive phlegm production and Reports wheezing *Gastrointestinal Gastrointestinal: Reports abdominal pain, Denies belching, Reports change in stool character and Denies cramping *Musculoskeletal Musculoskeletal: Reports back pain, Reports myalgias and Reports other (No small joint swelling or Pain) *Neurologic Neurologic: Reports system reviewed and no additional complaints, except as documented and Reports weakness Psychiatric Psychiatric: Denies homicidal ideation and Denies suicidal ideation Endocrine Endocrine: Reports fatigue and Denies heat intolerance Hematologic/Lymphatic Hematologic/Lymphatic: Denies easy bleeding and Denies lymphadenopathy Allergic/Immunologic Allergic/Immunologic: Denies itchy eyes, Denies lip swelling, Denies throat swelling and Reports wheezing Pulmonology Exam Inpatient Vital signs and Labs for Last 24 Hours: Temp Pulse Resp BP Pulse Ox O2 Del Method O2 Flow Rate 98.7 F 110 H 28 H 100/70 L 91 L BiPAP 2 01/01/24 08:06 01/01/24 08:00 01/01/24 07:53 01/01/24 04:00 01/01/24 07:53 01/01/24 07:53 01/01/24 03:46 FiO2 45 01/01/24 05:33 Laboratory Results - last 24 hr 01/01/24 00:25: SARS-CoV-2 (PCR) Not detected, Influenza A Untype (PCR) Not detected, Influenza Type B (PCR) Not detected 01/01/24 00:32: WBC 32.7 H*, RBC 4.99, Hgb 14.5, Hct 44.9, MCV 90.1, MCH 29.1, MCHC 32.4, RDW 16.0, Plt Count 413, MPV 7.8, Neut % (Auto) 92.1 H, Lymph % (Auto) 3.0 L, [place] % (Auto) 4.5, Eos % (Auto) 0.1, Baso % (Auto) 0.2, Neut # (Auto) 30.2 H, Lymph # (Auto) 1.0, [place] # (Auto) 1.5 H, Eos # (Auto) 0.0, Baso # (Auto) 0.1, Total Counted 100, Neutrophils % (Manual) 91 H, Lymphocytes % (Manual) 6 L, Monocytes % (Manual) 3, Platelet Estimate Normal, RBC Morphology Normal, VBG pH 7.39, VBG pCO2 33.4 L, VBG pO2 34.0, VBG HCO3 19.6 L, VBG Total CO2 20.7 L, VBG O2 Saturation 66.4, VBG Base Excess -5.4 L, Sodium 136, Potassium 4.6, Chloride 105, Carbon Dioxide 22, Anion Gap 13.6, BUN 32 H, Creatinine 1.30 H, Estimated Creat Clear 68, Estimated GFR 53 L, Est GFR ( Amer) 65, Glucose 202 H, Hemoglobin A1c 7.0 H, Lactate 2.7 H, Calcium 9.5, Magnesium 1.9, Total Bilirubin 0.5, AST 21, ALT 22, Alkaline Phosphatase 79, NT-Pro-B Natriuret Pep 303, Total Protein 6.5, Albumin 3.9, Globulin 2.6, Albumin/Globulin Ratio 1.5 01/01/24 00:50: Urine Color Yellow, Urine Appearance Clear, Urine pH 6.0, Ur Specific [place] 1.020, Urine Protein 1+, Urine Glucose (UA) 2+, Urine Ketones Negative, Urine Blood Negative, Urine Nitrate Negative, Urine Bilirubin Negative, Urine Urobilinogen 0.2, Ur Leukocyte Esterase Negative, Urine RBC Occasional, Urine WBC 3-5, Ur Squamous Epith Cells 3-5, Urine Bacteria 1+, Urine Mucus 1+ 01/01/24 06:14: POC Glucose 206 H 01/01/24 06:31: WBC 16.6 H D, RBC 4.64, Hgb 13.6 L, Hct 42.8, MCV 92.3, MCH 29.3, MCHC 31.8, RDW 16.0, Plt Count 292 D, MPV 7.8, Neut % (Auto) 88.8 H, Lymph % (Auto) 5.6 L, [place] % (Auto) 5.3, Eos % (Auto) 0.0 L, Baso % (Auto) 0.3, Neut # (Auto) 14.8 H, Lymph # (Auto) 0.9, [place] # (Auto) 0.9, Eos # (Auto) 0.0, Baso # (Auto) 0.1, Sodium 134 L, Potassium 3.7, Chloride 108 H, Carbon Dioxide 15 L, Anion Gap 14.7, BUN 39 H, Creatinine 2.10 H D, Estimated Creat Clear 42, Estimated GFR 31 L, Est GFR ( Amer) 37 L D, Glucose 209 H, Lactate 4.2 H, Calcium 8.5 01/01/24 08:11: APTT 29.9 01/01/24 08:58: Specimen Source R radial, O2 % 50%, ABG pH 7.37, ABG pCO2 21.7 L, ABG pO2 53.1 L, ABG HCO3 12.1 L, ABG Total CO2 12.8 L, ABG O2 Saturation 87 L*, ABG Base Excess -13.2 L, Gilles Test Acceptable I & O for Labs for Last 24 Hours: Intake & Output 12/29/23 12/30/23 12/31/23 01/01/24 23:59 23:59 23:59 23:59 Intake Total 2.438 / 2.438 Output Total 0 / 0 Balance 2.438 / 2.438 Weight 218 lb 6.415 oz Constitutional: Present moderate distress Head: Present normocephalic and atraumatic ENT: Present normal exam, normal oropharynx and mucous membranes moist Neck: Present normal inspection and full ROM Respiratory: Present respiratory distress, wheezes and diminished air movement; Absent able to speak in complete sentences Cardiac: Present S1/S2, Tachycardia and radial pulses present GI: Present distention, tenderness and guarding; Absent rebound or diminished bowel sounds Skin: Present intact; Absent cyanosis or jaundice Neuro: Present alert, awake and oriented x 3 Extremities: Present normal inspection; Absent clubbing or cyanosis Psychiatric: Present normal affect and cooperative Meds Home Medications and Allergies Home Medications Medication Instructions Recorded Confirmed Type amlodipine 5 mg tablet 5 mg PO DAILY Hypertension 01/01/24 01/01/24 History ascorbic acid (vitamin C) 500 mg 500 mg PO DAILY Supplement 01/01/24 01/01/24 History tablet (Vitamin C) clopidogrel 75 mg tablet 75 mg PO DAILY Blood Thinner 01/01/24 01/01/24 History dapagliflozin propanediol 10 mg 10 mg PO DAILY Diabetes 01/01/24 01/01/24 History tablet (Farxiga) diltiazem HCl 360 mg 360 mg PO DAILY Hypertension 01/01/24 01/01/24 History capsule,extended release 24 hr duloxetine 60 mg capsule,delayed 60 mg PO DAILY Depression 01/01/24 01/01/24 History release ezetimibe 10 mg tablet 10 mg PO DAILY Diabetes 01/01/24 01/01/24 History famotidine 40 mg tablet 40 mg PO BID GERD 01/01/24 01/01/24 History febuxostat 40 mg tablet 40 mg PO DAILY GOUT 01/01/24 01/01/24 History ferrous gluconate 324 mg (37.5 mg 324 mg PO DAILY Supplement 01/01/24 01/01/24 History iron) tablet pitavastatin calcium 4 mg tablet 4 mg PO HS Cholesterol 01/01/24 01/01/24 History prednisone 20 mg tablet 0 mg PO DAILY INFLAMMATION 01/01/24 01/01/24 History New Prescriptions to Start Prescriptions: Allergies Allergy/AdvReac Type Severity Reaction Status Date / Time shellfish derived Allergy Verified 01/01/24 00:43 Sulfa (Sulfonamide Allergy Verified 01/01/24 00:43 Antibiotics) Results Laboratory Findings 01/01/24 06:31 01/01/24 06:31 ABG ABG pH 7.37 mmol/L (7.35-7.45) 01/01/24 08:58 ABG pCO2 21.7 mmhg (35.0-45.0) L 01/01/24 08:58 ABG pO2 53.1 mmhg (80-100) L 01/01/24 08:58 ABG O2 Saturation 87 % (90-100) L* 01/01/24 08:58 Abnormal lab findings: Abnormal Labs 01/01/24 01/01/24 01/01/24 00:32 06:14 06:31 WBC 32.7 H* 16.6 H D Hgb 13.6 L Neut % (Auto) 92.1 H 88.8 H Lymph % (Auto) 3.0 L 5.6 L Eos % (Auto) 0.0 L Neut # (Auto) 30.2 H 14.8 H [place] # (Auto) 1.5 H Neutrophils % (Manual) 91 H Lymphocytes % (Manual) 6 L ABG pCO2 ABG pO2 ABG HCO3 ABG Total CO2 ABG O2 Saturation ABG Base Excess VBG pCO2 33.4 L VBG HCO3 19.6 L VBG Total CO2 20.7 L VBG Base Excess -5.4 L Sodium 134 L Chloride 108 H Carbon Dioxide 15 L BUN 32 H 39 H Creatinine 1.30 H 2.10 H D Estimated GFR 53 L 31 L Est GFR ( Amer) 37 L D Glucose 202 H 209 H POC Glucose 206 H Hemoglobin A1c 7.0 H Lactate 2.7 H 4.2 H 01/01/24 08:58 WBC Hgb Neut % (Auto) Lymph % (Auto) Eos % (Auto) Neut # (Auto) [place] # (Auto) Neutrophils % (Manual) Lymphocytes % (Manual) ABG pCO2 21.7 L ABG pO2 53.1 L ABG HCO3 12.1 L ABG Total CO2 12.8 L ABG O2 Saturation 87 L* ABG Base Excess -13.2 L VBG pCO2 VBG HCO3 VBG Total CO2 VBG Base Excess Sodium Chloride Carbon Dioxide BUN Creatinine Estimated GFR Est GFR ( Amer) Glucose POC Glucose Hemoglobin A1c Lactate Assessment and Plan *Assessment and plan (1) Acute respiratory failure with hypoxia: Status: Acute Category: Medical Code(s): J96.01 - Acute respiratory failure with hypoxia (2) Septic shock: Status: Acute Category: Medical Code(s): A41.9 - Sepsis, unspecified organism; R65.21 - Severe sepsis with septic shock (3) Pneumonia: Status: Acute Qualifiers: Laterality: right Lung location: middle lobe of lung Pneumonia type: due to unspecified organism Qualified Code(s): J18.9 - Pneumonia, unspecified organism Category: Medical Code(s): J18.9 - Pneumonia, unspecified organism Plan Mr. Garcia is a 78-year-old male with reported history of greater than 30 PPD, COPD, A-fib, hypertension, diabetes and CKD presented to the ER with worsening respiratory distress and increasing oxygen close and pulmonary was called for further evaluation and management. Patient admits worsening fevers and bodyaches for the last 24 hours. Denies any worsening symptoms prior to that. Chest x-ray on admission right lobe consolidation. No other dense base consolidation/effusions noted. Hemodynamically unstable. Neutrophilic leukocytosis upon admission. ABG upon admission hypoxic respiratory failure. No evidence of hypercarbia. ANABELLE noted with metabolic acidosis noted. Lactate significantly worsening now at 4.2. Patient was initiated on ceftriaxone azithromycin upon admission. Also receiving heparin infusion for possible PE and history of atrial fibrillation. Patient on examination alert and oriented x 3. On Levophed drip at 8 mcg. Worsening lactate improving Delta, closely monitor. Plan: Continue high flow nasal oxygen supplementation to maintain O2 saturation goal of 92% and above. Currently on 30 L or 80% Change antibiotics to cefepime and azithromycin pending blood and sputum culture results. Will complete septic shock fluid resuscitation. Continue Levophed to maintain a MAP goal of [address] chest and abdomen without contrast. Patient has significant peripheral vascular disease and complaining of abdominal pain with guarding. No rebound tenderness noted. Renally dose medications. Follow the urine output. Strict I & O Total critical care time spent on this patient is 35 minutes managing septic shock needing vasopressor support. This time spent include reviewing test results including interpreting chest x-rays, labs and arterial blood gas,formulating plan of care, discussing the plan of care with the team and the nursing staff.
--- NOTE | 2024-01-01 09:51 | PC.NURSE ---
RESP CARE NOTE: Pt placed on vapotherm at 30L/60% FIO2. Will continue to monitor SPO2 and wean as appropriate.
[2024-01-01 10:26] LABS: Lactic Acid Follow up (RFLX 2) 4.9 mmol/L (0.7-2.1)
--- NOTE | 2024-01-01 10:36 | CT_ITS ---
FINAL REPORT CLINICAL HISTORY: abdominal pain FINDINGS: Axial CT images of the abdomen and pelvis were obtained without intravenous contrast. Coronal reformatted images were also obtained.This study was performed with techniques to keep radiation doses as low as reasonably achievable (ALARA). Individualized dose reduction techniques using automated exposure control or adjustment of mA and/or kV according to the patient's size were employed. Abdomen: There are several low-attenuation hepatic masses that cannot be accurately characterized without contrast but probably represent cyst. There is a gallstone in the gallbladder. The spleen, pancreas, adrenal glands are without acute abnormality. There is no renal stone or hydronephrosis. There are moderate vascular calcifications. Pelvis: The GI tract demonstrates no obstruction. There are several diverticula in the sigmoid colon. The appendix is not visualized. The urinary bladder is unremarkable. There are no pars defects. There is no acute bony abnormality. IMPRESSION: Cholelithiasis. Reviewed, Interpreted and Dictated by Adam Erwin III, MD Transcribed by Fransisca Almodovar Authenticated and [facility]
--- NOTE | 2024-01-01 10:36 | CT_ITS ---
FINAL REPORT TECHNIQUE: Axial images were obtained from the lung apex to the mid abdomen by computed tomography. Coronal reformatted images were obtained. This study was performed with techniques to keep radiation doses as low as reasonably achievable, (ALARA). Individualized dose reduction techniques using automated exposure control or adjustment of mA and/or kV according to the patient''s size were employed. CLINICAL HISTORY: dyspnea FINDINGS: A right PICC line is present. There is no axillary adenopathy. There is no hilar or mediastinal adenopathy. There is severe coronary artery calcifications. There is ectasia of the aortic arch measuring 31 mm. Heart size is normal. There is no pericardial or pleural effusion. There is bilateral lower lobe consolidation, left greater than right, consistent with bilateral pneumonia. IMPRESSION: Bilateral lower lobe consolidation consistent with bilateral pneumonia. Reviewed, Interpreted and Dictated by Adam Erwin III, MD Transcribed by Fransisca Almodovar Authenticated and [facility]
--- NOTE | 2024-01-01 10:54 | HMH.ITSTN ---
Called and spoke with Mer, patient is in the process of getting picc line. She will call and let us know when patient is ready for CT.
--- NOTE | 2024-01-01 11:00 | XR_ITS ---
FINAL REPORT CLINICAL HISTORY: Confirm PICC line placement COMPARISON: None FINDINGS: A single portable view of the chest was obtained. The heart size and pulmonary vascularity are within normal limits. The mediastinum is within normal limits. The bony thorax is intact. Bilateral opacities are present, consistent with bilateral pneumonia. The right PICC line is in the lower superior vena cava. IMPRESSION: The right PICC line is in the lower superior vena cava. Bilateral opacities consistent with bilateral pneumonia. Reviewed, Interpreted and Dictated by Adam Erwin III, MD Transcribed by Catherine Mccoy Authenticated and [facility]
[2024-01-01 11:19] LABS: D-Dimer 5.47 ug/mL (0.0-0.5)
[2024-01-01 11:27] LABS: Troponin I 0.02 ng/ml (0.00-0.034)
[2024-01-01 12:46] LABS: POC Glucose,Bedside 200 (70-110)
[2024-01-01] MEDS: CEFEPIME HCL 2 GM in 0.9 % SODIUM CHLORIDE 100 ML IV ×2 (13:17→23:19)
--- NOTE | 2024-01-01 13:19 | P.CONCA_ITS ---
History of Present Illness History of Present Illness Consult date: 01/01/24 Requesting physician: Jackeline Driscoll Chief complaint: SOA and chills History of present illness: This is a 78-year-old white gentleman who presented to the emergency department with complaints of chills, shortness of breath and not feeling well. The patient has a past medical history of coronary artery disease, PAD, hypertension, hyperlipidemia and COPD. The patient states that he gets all of his health care in [facility]. He states that he has been short of breath for the last several days and just did not feel well then suddenly last night he had sudden onset of shortness of breath and chills. He states that he could not get the chills to go away so he decided to come into the emergency department. The patient was tachypneic and tachycardic when he arrived. He was in atrial fibrillation with RVR. He did have a leukocytosis and an elevated creatinine. His chest x-ray did show a right middle lobe pneumonia. The patient was subsequently admitted to the hospital. He states that he has been short of breath for the last several days and this was associated with bilateral lower extremity edema. He had associated orthopnea as well and felt like he was wheezing all the time. He does have a nonproductive cough. He denies any chest pain or pressure. He denies any fevers. But he was having bodyaches. He denies any nausea, vomiting, diarrhea. He does have orthopnea associated with his shortness of breath as well. [facility] Disclaimer: The information contained in this section may have been updated after the patient was seen, as this information can be updated by other users. Medical History (Updated 01/01/24 @ 13:25 by Stephanie Kruse APRN) Acute respiratory failure with hypoxia Atrial fibrillation with rapid ventricular response CAD in [place] artery COPD (chronic obstructive pulmonary disease) Diabetes Gout HLD (hyperlipidemia) HTN (hypertension) Obesity Peripheral arterial disease Pneumonia Respiratory failure Septic shock Social History (Updated 01/01/24 @ 01:18 by Armani Aguilera MD) Smoking Status: Current every day smoker alcohol intake: never current occupational status: previously employed Travel in the last 8 weeks: None Review of Systems Review of Systems Review of systems:: pertinent systems reviewed and negative unless documented below Constitutional Constitutional: Reports system reviewed and no additional complaints, except as documented, Reports chills, Reports fatigue, Reports lethargy, Reports malaise and Reports weakness Eyes Eyes: Reports system reviewed and no additional complaints, except as documented ENT Ears, Nose, Mouth, and Throat: Reports system reviewed and no additional complaints, except as documented *Cardiovascular Cardiovascular: Reports system reviewed and no additional complaints, except as documented, Denies chest pain, Reports dyspnea, Reports dyspnea on exertion and Reports orthopnea *Respiratory Respiratory: Reports system reviewed and no additional complaints, except as documented, Reports chest congestion, Reports cough, Reports dyspnea and Reports dyspnea on exertion *Gastrointestinal Gastrointestinal: Reports system reviewed and no additional complaints, except as documented *Genitourinary Genitourinary: Reports system reviewed and no additional complaints, except as documented *Musculoskeletal Musculoskeletal: Reports system reviewed and no additional complaints, except as documented Integumentary/Breasts Skin/Breast: Reports system reviewed and no additional complaints, except as documented *Neurologic Neurologic: Reports system reviewed and no additional complaints, except as documented and Reports weakness Psychiatric Psychiatric: Reports system reviewed and no additional complaints, except as documented Endocrine Endocrine: Reports system reviewed and no additional complaints, except as documented and Reports fatigue Hematologic/Lymphatic Hematologic/Lymphatic: Reports system reviewed and no additional complaints, except as documented Allergic/Immunologic Allergic/Immunologic: Reports system reviewed and no additional complaints, except as documented Exam Data for Last 24 hours Vital signs and Labs for Last 24 Hours: Temp Pulse Resp BP Pulse Ox O2 Del Method O2 Flow Rate 97.8 F 100 H 24 101/42 L 89 L Vapotherm 30 01/01/24 11:12 01/01/24 12:00 01/01/24 10:15 01/01/24 10:15 01/01/24 10:15 01/01/24 11:50 01/01/24 10:15 FiO2 80 01/01/24 10:15 Laboratory Results - last 24 hr 01/01/24 00:25: SARS-CoV-2 (PCR) Not detected, Influenza A Untype (PCR) Not detected, Influenza Type B (PCR) Not detected 01/01/24 00:32: WBC 32.7 H*, RBC 4.99, Hgb 14.5, Hct 44.9, MCV 90.1, MCH 29.1, MCHC 32.4, RDW 16.0, Plt Count 413, MPV 7.8, Neut % (Auto) 92.1 H, Lymph % (Auto) 3.0 L, [place] % (Auto) 4.5, Eos % (Auto) 0.1, Baso % (Auto) 0.2, Neut # (Auto) 30.2 H, Lymph # (Auto) 1.0, [place] # (Auto) 1.5 H, Eos # (Auto) 0.0, Baso # (Auto) 0.1, Total Counted 100, Neutrophils % (Manual) 91 H, Lymphocytes % (Manual) 6 L, Monocytes % (Manual) 3, Platelet Estimate Normal, RBC Morphology Normal, VBG pH 7.39, VBG pCO2 33.4 L, VBG pO2 34.0, VBG HCO3 19.6 L, VBG Total CO2 20.7 L, VBG O2 Saturation 66.4, VBG Base Excess -5.4 L, Sodium 136, Potassium 4.6, Chloride 105, Carbon Dioxide 22, Anion Gap 13.6, BUN 32 H, Creatinine 1.30 H, Estimated Creat Clear 68, Estimated GFR 53 L, Est GFR ( Amer) 65, Glucose 202 H, Hemoglobin A1c 7.0 H, Lactate 2.7 H, Calcium 9.5, Magnesium 1.9, Total Bilirubin 0.5, AST 21, ALT 22, Alkaline Phosphatase 79, NT-Pro-B Natriuret Pep 303, Total Protein 6.5, Albumin 3.9, Globulin 2.6, Albumin/Globulin Ratio 1.5 01/01/24 00:50: Urine Color Yellow, Urine Appearance Clear, Urine pH 6.0, Ur Specific [place] 1.020, Urine Protein 1+, Urine Glucose (UA) 2+, Urine Ketones Negative, Urine Blood Negative, Urine Nitrate Negative, Urine Bilirubin Negative, Urine Urobilinogen 0.2, Ur Leukocyte Esterase Negative, Urine RBC Occasional, Urine WBC 3-5, Ur Squamous Epith Cells 3-5, Urine Bacteria 1+, Urine Mucus 1+ 01/01/24 06:14: POC Glucose 206 H 01/01/24 06:31: WBC 16.6 H D, RBC 4.64, Hgb 13.6 L, Hct 42.8, MCV 92.3, MCH 29.3, MCHC 31.8, RDW 16.0, Plt Count 292 D, MPV 7.8, Neut % (Auto) 88.8 H, Lymph % (Auto) 5.6 L, [place] % (Auto) 5.3, Eos % (Auto) 0.0 L, Baso % (Auto) 0.3, Neut # (Auto) 14.8 H, Lymph # (Auto) 0.9, [place] # (Auto) 0.9, Eos # (Auto) 0.0, Baso # (Auto) 0.1, Sodium 134 L, Potassium 3.7, Chloride 108 H, Carbon Dioxide 15 L, Anion Gap 14.7, BUN 39 H, Creatinine 2.10 H D, Estimated Creat Clear 42, Estimated GFR 31 L, Est GFR ( Amer) 37 L D, Glucose 209 H, Lactate 4.2 H, Calcium 8.5 01/01/24 08:11: APTT 29.9 01/01/24 08:58: Specimen Source R radial, O2 % 50%, ABG pH 7.37, ABG pCO2 21.7 L , ABG pO2 53.1 L, ABG HCO3 12.1 L, ABG Total CO2 12.8 L, ABG O2 Saturation 87 L* , ABG Base Excess -13.2 L, Gilles Test Acceptable 01/01/24 09:36: D-Dimer 5.47 H, Lactate 4.9 H, Troponin I 0.02 01/01/24 11:47: POC Glucose 200 H I & O for Last 24 hours: Intake & Output 12/29/23 12/30/23 12/31/23 01/01/24 23:59 23:59 23:59 23:59 Intake Total 2.438 / 2.438 Output Total 0 / 0 Balance 2.438 / 2.438 Weight 218 lb 6.415 oz Constitutional Constitutional: no acute distress and average body habitus *Routine HEENT Exam Head: Present normocephalic and atraumatic ENT: Present mucous membranes moist *Routine Neck Exam Neck: Present supple, full ROM and normal carotid upstroke; Absent JVD, carotid bruit or lymphadenopathy *Routine Respiratory Exam Respiratory: Present decreased breath sounds, wheezes, normal respiratory effort, able to speak in complete sentences and symmetric chest movement *Routine Cardiovascular Exam Cardiovascular: Present Normal S1, Normal S2, tachycardia and irregularly irregular; Absent murmur or gallop *Routine Abdominal Exam Abdominal: Present soft and normoactive bowel sounds; Absent tenderness, distended or organomegaly *Routine Extremities Exam Extremities: Present full ROM, pulses intact and normal capillary refill; Absent cyanosis, clubbing or edema *Routine Skin Exam Skin: Present intact and warm; Absent erythema *Routine Neurological Exam Neurological: Present alert, oriented X3 and CN II-XII intact; Absent sensory deficit or motor deficit Routine Psychiatric Exam Psychiatric: Present normal affect Meds Home Medications and Allergies Home Medications Medication Instructions Recorded Confirmed Type amlodipine 5 mg tablet 5 mg PO DAILY Hypertension 01/01/24 01/01/24 History ascorbic acid (vitamin C) 500 mg 500 mg PO DAILY Supplement 01/01/24 01/01/24 History tablet (Vitamin C) clopidogrel 75 mg tablet 75 mg PO DAILY Blood Thinner 01/01/24 01/01/24 History dapagliflozin propanediol 10 mg 10 mg PO DAILY Diabetes 01/01/24 01/01/24 History tablet (Farxiga) diltiazem HCl 360 mg 360 mg PO DAILY Hypertension 01/01/24 01/01/24 History capsule,extended release 24 hr duloxetine 60 mg capsule,delayed 60 mg PO DAILY Depression 01/01/24 01/01/24 History release ezetimibe 10 mg tablet 10 mg PO DAILY Diabetes 01/01/24 01/01/24 History famotidine 40 mg tablet 40 mg PO BID GERD 01/01/24 01/01/24 History febuxostat 40 mg tablet 40 mg PO DAILY GOUT 01/01/24 01/01/24 History ferrous gluconate 324 mg (37.5 mg 324 mg PO DAILY Supplement 01/01/24 01/01/24 History iron) tablet pitavastatin calcium 4 mg tablet 4 mg PO HS Cholesterol 01/01/24 01/01/24 History prednisone 20 mg tablet 0 mg PO DAILY INFLAMMATION 01/01/24 01/01/24 History New Prescriptions to Start Prescriptions: Allergies Allergy/AdvReac Type Severity Reaction Status Date / Time shellfish derived Allergy Verified 01/01/24 00:43 Sulfa (Sulfonamide Allergy Verified 01/01/24 00:43 Antibiotics) Assessment and Plan *Assessment and plan (1) Atrial fibrillation with rapid ventricular response: Status: Acute Category: Medical Code(s): I48.91 - Unspecified atrial fibrillation (2) Acute respiratory failure with hypoxia: Status: Acute Category: Medical Code(s): J96.01 - Acute respiratory failure with hypoxia (3) CAD in [place] artery: Status: Acute Category: Medical Code(s): I25.10 - Atherosclerotic heart disease of [place] coronary artery without angina pectoris (4) Septic shock: Status: Acute Category: Medical Code(s): A41.9 - Sepsis, unspecified organism; R65.21 - Severe sepsis with septic shock (5) Pneumonia: Status: Acute Qualifiers: Laterality: right Lung location: middle lobe of lung Pneumonia type: due to unspecified organism Qualified Code(s): J18.9 - Pneumonia, unspecified organism Category: Medical Code(s): J18.9 - Pneumonia, unspecified organism (6) COPD (chronic obstructive pulmonary disease): Status: Acute Qualifiers: COPD type: unspecified COPD Qualified Code(s): J44.9 - Chronic obstructive pulmonary disease, unspecified Category: Medical Code(s): J44.9 - Chronic obstructive pulmonary disease, unspecified (7) Diabetes: Status: Acute Qualifiers: Diabetes mellitus type: type 2 Diabetes mellitus termite exterminator insulin use: without termite exterminator use Diabetes mellitus complication status: without complication Qualified Code(s): E11.9 - Type 2 diabetes mellitus without complications Category: Medical Code(s): E11.9 - Type 2 diabetes mellitus without complications (8) HLD (hyperlipidemia): Status: Acute Qualifiers: Hyperlipidemia type: mixed hyperlipidemia Qualified Code(s): E78.2 - Mixed hyperlipidemia Category: Medical Code(s): E78.5 - Hyperlipidemia, unspecified (9) HTN (hypertension): Status: Acute Qualifiers: Hypertension type: primary hypertension Qualified Code(s): I10 - Essential (primary) hypertension Category: Medical Code(s): I10 - Essential (primary) hypertension (10) Peripheral arterial disease: Status: Acute Category: Medical Code(s): I73.9 - Peripheral vascular disease, unspecified Plan Plan: 1. The patient was admitted to the hospital with acute respiratory failure with hypoxia, pneumonia and atrial fibrillation with RVR. The patient is getting IV antibiotics and on high flow oxygen. Will defer this to pulmonology. 2. The patient is currently being treated for sepsis/pneumonia. He has an elevated lactic acid. He is getting IV fluids and antibiotics. Will defer to the hospitalist/pulmonology. 3. The patient was in atrial fibrillation with RVR when he arrived at the hospital. It is unclear whether or not the patient has a known history of atrial fibrillation. It is documented in his history but when you asked the patient and his significant other they deny ever being told he has atrial fibrillation. He is on diltiazem but no long-term anticoagulation on an outpatient basis per his medication list. He is also listed as taking Norvasc in addition to the diltiazem. Stop the Norvasc. 4. He is currently on a heparin drip for anticoagulation. 5. The patient's diltiazem is also being held due to hypotension. Will give him a loading dose of digoxin 250 mcg IV every 6 hours x 2 doses then 125 mcg p.o. daily thereafter for better rate control. 6. Will obtain a stat troponin. This did come back negative. Will do serial troponins. 7. Will obtain an echocardiogram to evaluate his LV function. His preliminary EF on the echocardiogram shows an ejection fraction of 50%. He does have inferoseptal wall motion abnormalities and inferior wall motion abnormalities noted on echocardiogram. This does appear to be a change from his previous echo cardiogram on December 24, 2023. 8. Once the patient has recovered from pneumonia and sepsis then we will need to consider proceeding with left cardiac catheterization to evaluate for coronary artery disease given his wall motion abnormalities noted on echocardiogram and underlying coronary artery disease. He does have a high pretest likelihood for worsening of his coronary artery disease. 9. Coronary artery disease is present as mentioned above. 10. His blood pressure has been low. He is currently on a Levophed drip. If the patient's tachycardia worsens we may need to consider switching this over to a Song-Synephrine drip. 11. His LDL goal is less than 55. He is on Livalo on an outpatient basis. Will get a lipid panel in the morning. 12. The patient is diabetic. His hemoglobin A1c is 7%. He will need aggressive control of his diabetes. Defer management this to the hospitalist. 13. The patient's creatinine did elevate from 1.3 to 2.1. Will continue to follow his renal function. He is currently getting IV fluids. 14. The patient does have a history of PAD with 2 stents in each of his bilateral lower extremities. Continue Plavix. 15. Further recommendations were made pending the patient's response to treatment. Thank you for the opportunity to help participate in the care of this patient. All recommendation and orders are per Dr. Purdy.
--- NOTE | 2024-01-01 13:43 | PC.NURSE ---
RESP CARE NOTE: Pt Vapotherm decreased to 30L/50% to maintain SPO2 above 92% per Dr Tamez verbal order. Will continue to monitor patient.
--- NOTE | 2024-01-01 13:55 | PC.NURSE ---
RESP CARE NOTE: Vapotherm weaned to 25L/40% FIO2 at this time. SPO2 at 97% and we will continue to monitor patient.
[2024-01-01] MEDS: DIGOXIN 0.25MG/ML 2ML AMPUL 250 MCG IV ×2 (14:28→21:17)
[2024-01-01 15:08] LABS: Troponin I 0.01 ng/ml (0.00-0.034)
[2024-01-01 15:37] LABS: Lactic Acid 5.1 mmol/L (0.7-2.1)
--- NOTE | 2024-01-01 15:39 | PC.NURSE ---
Addendum entered by Mer Tripathi RN 01/01/24 18:13: heparin drip decreased to 800units/hr per pharmacy recommendations Original Note: heparin drip decreased to 1100units/hr at this time. new bag not needed so not scanned at this time
--- NOTE | 2024-01-01 16:00 | EXP.SEPSISRE ---
[facility] Tissue Perfusion Eval Sepsis Re-Evaluation Performed: Yes Date Performed: 01/01/24 Time Performed: 07:00
[2024-01-01] MEDS: LACTATED RINGERS 1000ML 1,000 ML 150 ML IV (16:45)
[2024-01-01] MEDS: ACETAMINOPHEN 325MG TAB 650 MG PO (16:54)
[2024-01-01 17:46] LABS: Chloride 102 mmol/L (98-107); Potassium 4.8 mmoL/L (3.5-5.1); Sodium 127 mmol/L (136-145)
[2024-01-01 17:49] LABS: Anion Gap 16.8 mEq/L (5-15); Blood Urea Nitrogen 43 mg/dl (9-20); Calcium 7.5 mg/dl (8.4-10.2); Carbon Dioxide 13 mmol/L (22.0-30.0); Creatinine Clearance Estimated 45 mL/min (50-200); Estimated Glomerular Filt Rate 34 ml/min (>60); GFR (African American) 42 ML/MIN (>60); Glucose 389 mg/dl (74-100)
[2024-01-01 17:54] LABS: POC Glucose,Bedside 244 (70-110)
[2024-01-01 17:59] LABS: Troponin I 0.07 ng/ml (0.00-0.034)
[2024-01-01] MEDS: BUDESONIDE 0.5MG/2ML NEB 0.5 MG IH (18:36)
[2024-01-01 19:15] LABS: Reflex Lactic Add Lactic Reflex
[2024-01-01 20:19] LABS: POC Glucose,Bedside 225 (70-110)
[2024-01-01 20:55] LABS: Lactic Acid Follow Up (RFLX 1) 3.6 mmol/L (0.7-2.1)
[2024-01-01 21:02] LABS: Troponin I 0.02 ng/ml (0.00-0.034)
[2024-01-01 22:27] LABS: PTT Heparin (inpatient only) 81.1 Seconds (23.6-34.0)
[2024-01-01 22:33] LABS: Reflex Lactic (2 hrs) Add Lactic Reflex
--- NOTE | 2024-01-01 22:41 | PC.NURSE ---
Spoke with Jennifer from [facility]. Stated based on PTT 81.1 to lower heparin gtt to 700u/hr. Jennifer will enter in next PTT order for 0400. Repeated, verified and carried out.
[2024-01-02] VITALS (23 sets, daily range): BP systolic 97–144; BP diastolic 47–72; PULSE 74–138; RESP 14–28; TEMP 36.6–36.9; O2SAT 92–100; BMI 32.3
[2024-01-02 00:12] LABS: Lactic Acid Follow up (RFLX 2) 3.1 mmol/L (0.7-2.1)
[2024-01-02] MEDS: NOREPINEPHRINE BITARTRATE/D5W 8 MG/250 ML PLAST..BAG 9.38000000000000078 MG IV (00:45)
[2024-01-02 01:54] LABS: Adenovirus F 40/41, stool Not Detected (NotDetected); Astrovirus Not Detected (NotDetected); Campylobacter Not Detected (NotDetected); Clostridium Difficile A/B, PCR Not Detected (NotDetected); Cryptosporidium Not Detected (NotDetected); Cyclospora Cayetanesis Not Detected (NotDetected); Entamoeba histolytica Not Detected (NotDetected); Enteroaggregative E coli Not Detected (NotDetected); Enteropathogenic E coli Not Detected (NotDetected); Enterotoxigenic E coli Not Detected (NotDetected); Giardia lamblia Not Detected (NotDetected); Norovirus Not Detected (NotDetected); Plesimonas Shigalloides, PCR Not Detected (NotDetected); Rotavirus A Not Detected (NotDetected); Salmonella, PCR Not Detected (NotDetected); Sapovirus Not Detected (NotDetected); Shiga-like toxin E coli Not Detected (NotDetected); Shigella Enterovasive E coli Not Detected (NotDetected); Vibrio Cholerae Not Detected (NotDetected); Vibrio, PCR Not Detected (NotDetected); Yersinia Entercolitica, PCR Not Detected (NotDetected)
[2024-01-02] MEDS: IPRATROPIUM BROMIDE 0.5 MG/2.5ML SOLUTION IH ×3 (02:22→10:04)
[2024-01-02] MEDS: LEVALBUTEROL 1.25MG/3ML NEB 1.25 MG IH ×3 (02:22→10:04)
[2024-01-02 04:42] LABS: Basophils # 0.1 K/mm3 (0-0.2); Basophils % 0.3 % (0.1-2.0); Eosinophils % 0.1 % (0.1-12.0); Hemoglobin 12.3 g/dL (14.1-18.0); Lymphocytes # 0.8 K/mm3 (0.7-4.5); Lymphocytes % 2.4 % (10-50); Mean Corpuscular HGB Conc 33.2 g/dL (31.8-35.4); Mean Corpuscular Hemoglobin 30.1 pg (27.0-31.2); Mean Corpuscular Volume 90.9 fl (80-94); Monocytes # 1.2 K/mm3 (0.1-1.0); Monocytes % 3.7 % (1.7-9.3); Neutrophils # 29.4 K/mm3 (1.8-7.8); Neutrophils % 93.5 % (37.0-80.0); Platelet Count 340 K/mm3 (142-424); Red Blood Count 4.08 M/mm3 (4.60-6.20); Red Cell Distribution Width 16.3 % (11.5-17.5); White Blood Count 31.4 K/mm3 (4.8-10.8)
[2024-01-02 04:45] LABS: MANUAL DIFFERENTIAL MANUAL DIFFERENTIAL (MANUAL DIFF)
[2024-01-02 04:47] LABS: Chloride 108 mmol/L (98-107); Potassium 4.4 mmoL/L (3.5-5.1); Sodium 131 mmol/L (136-145)
[2024-01-02 04:49] LABS: Alanine Aminotransferase 25 U/L (12-78); Aspartate Amino Transferase 26 U/L (17-59); Blood Urea Nitrogen 42 mg/dl (9-20); Creatinine Clearance Estimated 50 mL/min (50-200); Estimated Glomerular Filt Rate 39 ml/min (>60); GFR (African American) 47 ML/MIN (>60)
[2024-01-02 04:50] LABS: Albumin Level 2.8 g/dl (3.5-5.0); Alkaline Phosphatase 58 U/L (38-126); Anion Gap 11.4 mEq/L (5-15); Bilirubin,Total 0.6 mg/dl (0.2-1.3); Carbon Dioxide 16 mmol/L (22.0-30.0); Globulin 2.7 g/dL (1.3-3.2); Glucose 185 mg/dl (74-100); Magnesium 1.7 mg/dl (1.6-2.3); Total Protein,Serum 5.5 g/dl (6.3-8.2)
[2024-01-02 04:51] LABS: Chol/HDL Ratio 2.7 (1-3.5); Cholesterol 85 mg/dl (140-200); HDL Cholesterol 31 mg/dl (40-60); Triglycerides 164 mg/dl (30-150); VLDL Cholesterol 33 mg/dL (0-40)
[2024-01-02 04:53] LABS: PTT Heparin (inpatient only) 55.1 Seconds (23.6-34.0)
[2024-01-02 05:19] LABS: Lymphocytes % 8 % (10-50); Monocytes % 2 % (2-9); Neutrophils % 90 % (42-76); Platelet Estimate Normal; RBC Morphology Normal; Total Cells Counted 100
[2024-01-02 05:21] LABS: Direct LDL Cholesterol < 30.00 mg/dL (100-129)
[2024-01-02] MEDS: humaLOG 100 UNITS/ML 3ML VIAL (SSI) SQ ×3 (05:50→17:14)
[2024-01-02 05:59] LABS: POC Glucose,Bedside 207 (70-110)
[2024-01-02] MEDS: BUDESONIDE 0.5MG/2ML NEB 0.5 MG IH ×2 (06:00→18:15)
--- NOTE | 2024-01-02 06:06 | PC.NURSE ---
Spoke with Mason from [facility]. PTT result 55.1 is within target range. No change to heparin gtt at this time. States to order next PTT for 1200. Repeated, verified and carried out.
--- NOTE | 2024-01-02 07:20 | EXP.ACUTE.PN ---
Subjective *Date: 01/02/24 *Time: 16:42 Interval history: Patient with proving pressure this morning on rounds. Weaning off of Levophed. Transition to nasal cannula oxygen. States he is feeling better. Alert and oriented. Denies any abdominal pain. Family at bedside. Afebrile overnight. Medical Exam Vital signs and Labs for Last 24 Hours: Vital Signs Temp Pulse Pulse Pulse Resp BP BP 01/02/24 06:38 01/02/24 06:05 104 H 20 118/59 L 01/02/24 04:00 129 H 01/02/24 06:01 83 01/02/24 06:01 92 H 01/02/24 06:01 01/02/24 04:38 01/02/24 04:00 98.4 F 87 24 134/56 L 01/02/24 03:00 80 01/02/24 02:59 01/02/24 02:00 81 24 124/55 L 01/02/24 02:23 102 H 01/02/24 02:23 91 H 01/02/24 00:00 90 01/01/24 20:00 91 H 01/02/24 00:52 01/02/24 00:00 01/02/24 00:00 98.0 F 91 H 26 H 98/59 L 01/01/24 23:23 100 H 01/01/24 23:23 98 H 01/01/24 23:20 86 28 H 122/58 L 01/01/24 22:48 01/01/24 22:00 98 H 27 H 131/55 L 01/01/24 21:00 01/01/24 20:00 94 H 01/01/24 21:17 94 H 01/01/24 20:00 97.7 F 96 H 30 H 110/54 L 01/01/24 18:40 01/01/24 18:37 101 H 01/01/24 18:37 102 H 01/01/24 17:51 01/01/24 17:50 98 H 27 H 119/51 L 01/01/24 16:00 100 H 01/01/24 13:30 98 H 24 104/52 L 01/01/24 17:02 01/01/24 16:00 107 H 01/01/24 16:30 100 H 24 113/51 L 02/06/24 16:00 98 H 24 122/51 L 01/01/24 15:00 96 H 24 109/56 L 01/01/24 14:30 98 H 24 102/50 L 01/01/24 12:45 95 H 22 113/41 L 01/01/24 15:34 97.7 F 01/01/24 15:36 98 H 30 H 107/55 L 01/01/24 15:33 95 H 01/01/24 15:00 01/01/24 14:00 107 H 01/01/24 13:50 106 H 01/01/24 13:50 93 H 01/01/24 13:00 99 H 24 110/51 L 01/01/24 12:15 92 H 24 103/39 L 01/01/24 11:45 104 H 24 113/37 L 01/01/24 10:45 99 H 24 88/40 L 01/01/24 13:00 01/01/24 10:30 91 H 24 93/45 L 01/01/24 12:00 100 H 01/01/24 10:15 98 H 24 101/42 L 01/01/24 10:00 96 H 22 88/51 L 01/01/24 09:45 96 H 22 102/49 L 01/01/24 09:30 94 H 22 102/49 L 01/01/24 09:15 87 22 80/52 L 01/01/24 09:00 90 24 82/42 L 01/01/24 08:50 86 22 87/42 L 01/01/24 08:45 117 H 24 92/40 L 01/01/24 08:29 97 H 22 81/36 L 01/01/24 08:12 95 H 24 80/38 L 01/01/24 08:00 87 24 82/37 L 01/01/24 07:50 99 H 18 88/48 L 01/01/24 11:50 01/01/24 11:12 97.8 F 01/01/24 09:40 01/01/24 07:40 01/01/24 08:00 110 H 01/01/24 08:06 98.7 F 01/01/24 07:53 108 H 28 H Pulse Ox O2 Del Method O2 Flow Rate FiO2 01/02/24 06:38 Vapotherm 20 01/02/24 06:05 100 Vapotherm 20 35 01/02/24 04:00 01/02/24 06:01 01/02/24 06:01 01/02/24 06:01 100 Vapotherm 25 40 01/02/24 04:38 Vapotherm 25 01/02/24 04:00 99 Vapotherm 25 40 01/02/24 03:00 96 Vapotherm 25 40 01/02/24 02:59 Vapotherm 25 01/02/24 02:00 99 Vapotherm 25 40 01/02/24 02:23 01/02/24 02:23 01/02/24 00:00 01/01/24 20:00 01/02/24 00:52 Vapotherm 25 01/02/24 00:00 95 Vapotherm 25 40 01/02/24 00:00 96 Vapotherm 25 40 01/01/24 23:23 01/01/24 23:23 01/01/24 23:20 98 Vapotherm 25 40 01/01/24 22:48 Vapotherm 01/01/24 22:00 99 Vapotherm 25 40 01/01/24 21:00 Vapotherm 25 01/01/24 20:00 97 Vapotherm 25 40 01/01/24 21:17 01/01/24 20:00 97 Vapotherm 25 40 01/01/24 18:40 Vapotherm 25 40 01/01/24 18:37 01/01/24 18:37 01/01/24 17:51 Vapotherm 01/01/24 17:50 98 Vapotherm 25 40 01/01/24 16:00 01/01/24 13:30 97 Vapotherm 30 80 01/01/24 17:02 Vapotherm 01/01/24 16:00 95 Vapotherm 25 40 01/01/24 16:30 95 Vapotherm 25 40 01/01/24 16:00 95 Vapotherm 25 40 01/01/24 15:00 99 Vapotherm 25 40 01/01/24 14:30 97 Vapotherm 25 40 01/01/24 12:45 100 Vapotherm 30 80 01/01/24 15:34 01/01/24 15:36 96 Vapotherm 01/01/24 15:33 01/01/24 15:00 Vapotherm 01/01/24 14:00 95 Vapotherm 01/01/24 13:50 01/01/24 13:50 01/01/24 13:00 100 Vapotherm 30 80 01/01/24 12:15 100 Vapotherm 30 80 01/01/24 11:45 97 Vapotherm 30 80 01/01/24 10:45 89 L Vapotherm 30 80 01/01/24 13:00 Vapotherm 01/01/24 10:30 93 L Vapotherm 30 80 01/01/24 12:00 01/01/24 10:15 89 L Vapotherm 30 80 01/01/24 10:00 87 L Vapotherm 01/01/24 09:45 90 L Vapotherm 01/01/24 09:30 91 L Vapotherm 01/01/24 09:15 89 L Venturi Mask 01/01/24 09:00 87 L Venturi Mask 01/01/24 08:50 86 L Venturi Mask 01/01/24 08:45 87 L Nasal Cannula 5 01/01/24 08:29 89 L BiPAP 01/01/24 08:12 89 L BiPAP 01/01/24 08:00 91 L BiPAP 01/01/24 07:50 91 L BiPAP 01/01/24 11:50 Vapotherm 01/01/24 11:12 01/01/24 09:40 Vapotherm 01/01/24 07:40 Venturi Mask 01/01/24 08:00 01/01/24 08:06 01/01/24 07:53 91 L BiPAP Intake and Output 01/01/24 01/01/24 01/02/24 15:59 23:59 07:59 Intake Total 2.438 / 4899.063 3578.625 / 4899.063 1330.194 / 1330.194 Output Total 1 / 216 215 / 216 375 / 375 Balance 1.438 / 4683.063 3363.625 / 4683.063 955.194 / 955.194 Intake: Intake, Oral Amount 0 / 0 0 / 0 Intake, Total IV Amount 2.438 / 4899.063 3578.625 / 4899.063 1330.194 / 1330.194 Azithromycin 500 mg In 0.9 % 250 / 250 Sodium Chloride 250 ml @ 250 mls/hr IV Q24H [facility] Rx#:[id number] Cefepime HCl 2 gm In 0.9 % 100 / 200 100 / 100 Sodium Chloride 100 ml @ 200 mls/hr IV Q12H [facility] Rx#:[id number] Heparin Sodium,Porcine/D5w 500 220 / 220 ml @ 800 UNITS/HR 16 mls/hr IV .Q25H [facility] Rx#:[id number] Lactated Ringers 1000ML 1,000 70 / 1038 968 / 968 ml @ 150 mls/hr IV .Q6H40M [facility] Rx#:[id number] Lactated Ringers 1000ML 500 ml 3000 / 3000 @ 999 mls/hr IV .Q31M [facility] Rx#: [id number] Output: Output, Urine Amount 1 / 216 215 / 216 375 / 375 Other: Number of Unmeasured Voids 0 1 Number of Bowel Movements 1 1 1 Weight 99.065 kg 98.883 kg Patient Weight 01/02/24 23:59 Weight 98.883 kg Laboratory Results - last 24 hr 01/01/24 06:31: Sodium 134 L, Potassium 3.7, Chloride 108 H, Carbon Dioxide 15 L, Anion Gap 14.7, BUN 39 H, Creatinine 2.10 H D, Estimated Creat Clear 42, Estimated GFR 31 L, Est GFR ( Amer) 37 L D, Glucose 209 H, Lactate 4.2 H, Calcium 8.5 01/01/24 08:11: APTT 29.9 01/01/24 08:58: Specimen Source R radial, O2 % 50%, ABG pH 7.37, ABG pCO2 21.7 L, ABG pO2 53.1 L, ABG HCO3 12.1 L, ABG Total CO2 12.8 L, ABG O2 Saturation 87 L*, ABG Base Excess -13.2 L, Gilles Test Acceptable 01/01/24 09:36: D-Dimer 5.47 H, Lactate 4.9 H, Troponin I 0.02 01/01/24 11:47: POC Glucose 200 H 01/01/24 14:33: APTT 190.0 H*, Troponin I 0.01 01/01/24 15:07: Lactate 5.1 H 01/01/24 16:52: POC Glucose 244 H 01/01/24 17:20: APTT 200.0 H*, Sodium 127 L, Potassium 4.8 D, Chloride 102, Carbon Dioxide 13 L, Anion Gap 16.8 H, BUN 43 H, Creatinine 1.90 H, Estimated Creat Clear 45, Estimated GFR 34 L, Est GFR ( Amer) 42 L, Glucose 389 H D, Calcium 7.5 L, Troponin I 0.07 H 01/01/24 19:53: POC Glucose 225 H 01/01/24 20:05: Lactate 3.6 H, Troponin I 0.02 01/01/24 21:44: APTT 81.1 H* 01/01/24 23:45: Lactate 3.1 H 01/02/24 04:30: WBC 31.4 H* D, RBC 4.08 L, Hgb 12.3 L, Hct 37.0 L, MCV 90.9, MCH 30.1, MCHC 33.2, RDW 16.3, Plt Count 340, MPV 8.0, Neut % (Auto) 93.5 H, Lymph % (Auto) 2.4 L, King % (Auto) 3.7, Eos % (Auto) 0.1, Baso % (Auto) 0.3, Neut # (Auto) 29.4 H, Lymph # (Auto) 0.8, King # (Auto) 1.2 H, Eos # (Auto) 0.0, Baso # (Auto) 0.1, Total Counted 100, Neutrophils % (Manual) 90 H, Lymphocytes % (Manual) 8 L, Monocytes % (Manual) 2, Platelet Estimate Normal, RBC Morphology Normal, APTT 55.1 H*, Sodium 131 L, Potassium 4.4, Chloride 108 H, Carbon Dioxide 16 L, Anion Gap 11.4, BUN 42 H, Creatinine 1.70 H, Estimated Creat Clear 50, Estimated GFR 39 L, Est GFR ( Amer) 47 L, Glucose 185 H D, Hemoglobin A1c 7.0 H, Calcium 8.0 L, Magnesium 1.7 D, Total Bilirubin 0.6, AST 26, ALT 25, Alkaline Phosphatase 58, Total Protein 5.5 L, Albumin 2.8 L D, Globulin 2.7, Albumin/Globulin Ratio 1.0 L, Triglycerides 164 H, Cholesterol 85 L, LDL Cholesterol Direct < 30.00 L, VLDL Cholesterol 33, HDL Cholesterol 31 L, Cholesterol/HDL Ratio 2.7 01/02/24 05:51: POC Glucose 207 H I & O for Labs for Last 24 Hours: Intake & Output 12/30/23 12/31/23 01/01/24 01/02/24 23:59 23:59 23:59 23:59 Intake Total 3581.063 / 4899.063 1330.194 / 1330.194 Output Total 216 / 216 375 / 375 Balance 3365.063 / 4683.063 955.194 / 955.194 Weight 99.065 kg 98.883 kg Constitutional: Present no acute distress, obese, chronically ill appearing and cooperative Head: Present atraumatic and normocephalic ENT: Present normal exam Neck: Present normal inspection Respiratory: Present rhonchi, crackles (Posterior lung nieto) and normal respiratory effort; Absent wheezes Cardiac: Present Reg Rate and Rhythm GI: Present soft and normal bowel sounds; Absent distention or tenderness Rectal (male): Present deferred Extremities: Present normal inspection and full ROM Skin: Present intact; Absent erythema Neuro: Present Grossly Intact, alert, awake, oriented x 3 and moves all extremities Assessment and Plan *Assessment and plan (1) Septic shock: Status: Acute Category: Medical Code(s): A41.9 - Sepsis, unspecified organism; R65.21 - Severe sepsis with septic shock (2) Pneumonia: Status: Acute Qualifiers: Laterality: right Lung location: middle lobe of lung Pneumonia type: due to unspecified organism Qualified Code(s): J18.9 - Pneumonia, unspecified organism Category: Medical Code(s): J18.9 - Pneumonia, unspecified organism (3) Respiratory failure: Status: Acute Qualifiers: Chronicity: acute Respiratory failure complication: hypoxia Qualified Code(s): J96.01 - Acute respiratory failure with hypoxia Category: Medical Code(s): J96.90 - Respiratory failure, unspecified, unspecified whether with hypoxia or hypercapnia (4) ANABELLE (acute kidney injury): Status: Acute Category: Medical Code(s): N17.9 - Acute kidney failure, unspecified (5) Atrial fibrillation with rapid ventricular response: Status: Acute Category: Medical Code(s): I48.91 - Unspecified atrial fibrillation (6) COPD (chronic obstructive pulmonary disease): Status: Acute Qualifiers: COPD type: unspecified COPD Qualified Code(s): J44.9 - Chronic obstructive pulmonary disease, unspecified Category: Medical Code(s): J44.9 - Chronic obstructive pulmonary disease, unspecified (7) Diabetes: Status: Acute Qualifiers: Diabetes mellitus type: type 2 Diabetes mellitus [facility] insulin use: without [facility] use Diabetes mellitus complication status: without complication Qualified Code(s): E11.9 - Type 2 diabetes mellitus without complications Category: Medical Code(s): E11.9 - Type 2 diabetes mellitus without complications (8) HLD (hyperlipidemia): Status: Acute Qualifiers: Hyperlipidemia type: mixed hyperlipidemia Qualified Code(s): E78.2 - Mixed hyperlipidemia Category: Medical Code(s): E78.5 - Hyperlipidemia, unspecified (9) HTN (hypertension): Status: Acute Qualifiers: Hypertension type: primary hypertension Qualified Code(s): I10 - Essential (primary) hypertension Category: Medical Code(s): I10 - Essential (primary) hypertension (10) Gout: Status: Acute Category: Medical Code(s): M10.9 - Gout, unspecified (11) Obesity: Status: Acute Category: Medical Code(s): E66.9 - Obesity, unspecified Plan 78 year old male presented to [facility] ED w/ c/o body chills, sob, and feeling ill. PHMX of COPD, a fib, HTN, DM, CAD,and gout. Pt states his physicians are at [facility]. He denies any chest pain or recent exposure to sickness. The ED work revealed a fib rvr, leukocytosis of 32.7, creatinine of 1.3, lactate of 2.7, and pneumonia located in the right middle lobe. The pt received two duonebs upon arrival to the ED. The pt meets sepsis criteria with a HR of 127, RR of 31, and leukocytosis of 32.7. His COVID/flu swab was negative in ED. The ED physician consulted the hospitalist team for further medical management. The pt had blood cultures obtain prior to be started on Rocephin and azithromycin. Patient has shown improvement clinically over the past 24 hours. Weaning pressors this morning. Pulmonology and cardiology assisting with care. Continues to require stepdown level of admission. Problems addressed as follow: Septic shock, resolving PNEUMONIA RESP FAILURE -Weaning Levophed, goal to wean off today. -Pulmonology consulted, appreciate their assistance. Discussed case this morning, recommend continuing cefepime and azithromycin. Sputum and blood culture still pending. DuoNebs every 6 hours and Pulmicort every 12 hours scheduled. -Repeat CBC, CMP, magnesium ordered for the morning. -Discontinue Vapotherm, transition to nasal cannula oxygen at 4 L. Wean for goal saturation greater 90%. -Reviewed CT of chest, shows prominent bilateral posterior lung pneumonia -Lactate improved over the past 24 hours from peak of 5.1, down to 3.1 this morning ATRIAL FIBRILLATION W/ RVR -HX of a fib. Home medication is diltiazem 360 and plavix 75mg. - Continue heparin drip. Initiated on digoxin 250 mcg IV every 6 hours x 2 doses with progression to 125 mcg p.o. daily for rate control. - Echocardiogram obtained with EF of 50% but showing some inferoseptal wall motion abnormalities. This is changed from previous echo 1 week ago at outside hospital. - Cardiology recommends proceeding with left heart cath to evaluate for CAD when stable from his sepsis. Discussed case this morning. ANABELLE -Creatinine improved to 1.7 this morning, BUN 42. DM -SSI insulin -A1C 7.0 COPD HLD HTN GOUT -Holding norvasc, statin, febuxostat due to sepsis; continuing duloxetine 60mg, ezetimibe 10mg, famotidine 40mg, and prednisone 20mg TOBACCO ABUSE: nicotine patch PRN OBESITY: complicates all aspects of care FULL CODE CARDIAC DIET DVT: Heparin gtt
[2024-01-02] MEDS: PAT OWN MED ***CLOPIDOGREL 75MG 75 MG PO (08:53)
[2024-01-02] MEDS: ASCORBIC ACID 500MG TAB 500 MG PO (08:53)
[2024-01-02] MEDS: DIGOXIN 0.125MG TABLET 125 MCG PO (08:53)
[2024-01-02] MEDS: FAMOTIDINE 20MG TABLET 20 MG PO ×2 (08:54→21:28)
[2024-01-02] MEDS: PAT OWN MED ***EZETIMIBE 10MG 10 MG PO (08:54)
[2024-01-02] MEDS: PAT OWN MED ***DULOXETINE 60 MG 1 EACH PO (08:55)
[2024-01-02] MEDS: predniSONE 20MG TAB 20 MG PO ×2 (08:55→21:28)
[2024-01-02] MEDS: MAGNESIUM SULFATE IN WATER 2 GM/50 ML PIGGYBACK IV (08:55)
--- NOTE | 2024-01-02 09:52 | P.PN_ITS ---
Subjective *Date: 01/02/24 *Time: 13:13 Interval history: No acute respiratory vents overnight. Patient admits significant improvement in respiratory status. Pulmonology Exam Inpatient Vital signs and Labs for Last 24 Hours: Temp Pulse Resp BP Pulse Ox O2 Del Method O2 Flow Rate 98.1 F 101 H 20 118/59 L 96 Vapotherm 20 01/02/24 08:00 01/02/24 08:00 01/02/24 06:05 01/02/24 06:05 01/02/24 09:00 01/02/24 09:00 01/02/24 09:00 FiO2 35 01/02/24 09:00 Laboratory Results - last 24 hr 01/01/24 09:36: D-Dimer 5.47 H, Lactate 4.9 H, Troponin I 0.02 01/01/24 11:47: POC Glucose 200 H 01/01/24 14:33: APTT 190.0 H*, Troponin I 0.01 01/01/24 15:07: Lactate 5.1 H 01/01/24 16:52: POC Glucose 244 H 01/01/24 17:20: APTT 200.0 H*, Sodium 127 L, Potassium 4.8 D, Chloride 102, Carbon Dioxide 13 L, Anion Gap 16.8 H, BUN 43 H, Creatinine 1.90 H, Estimated Creat Clear 45, Estimated GFR 34 L, Est GFR ( Amer) 42 L, Glucose 389 H D , Calcium 7.5 L, Troponin I 0.07 H 01/01/24 19:53: POC Glucose 225 H 01/01/24 20:05: Lactate 3.6 H, Troponin I 0.02 01/01/24 21:44: APTT 81.1 H* 01/01/24 23:45: Lactate 3.1 H 01/02/24 04:30: WBC 31.4 H* D, RBC 4.08 L, Hgb 12.3 L, Hct 37.0 L, MCV 90.9, MCH 30.1, MCHC 33.2, RDW 16.3, Plt Count 340, MPV 8.0, Neut % (Auto) 93.5 H, Lymph % (Auto) 2.4 L, Dickinson % (Auto) 3.7, Eos % (Auto) 0.1, Baso % (Auto) 0.3, Neut # (Auto) 29.4 H, Lymph # (Auto) 0.8, Dickinson # (Auto) 1.2 H, Eos # (Auto) 0.0, Baso # (Auto) 0.1, Total Counted 100, Neutrophils % (Manual) 90 H, Lymphocytes % (Manual) 8 L, Monocytes % (Manual) 2, Platelet Estimate Normal, RBC Morphology Normal, APTT 55.1 H*, Sodium 131 L, Potassium 4.4, Chloride 108 H, Carbon Dioxide 16 L, Anion Gap 11.4, BUN 42 H, Creatinine 1.70 H, Estimated Creat Clear 50, Estimated GFR 39 L, Est GFR ( Amer) 47 L, Glucose 185 H D, Hemoglobin A1c 7.0 H, Calcium 8.0 L, Magnesium 1.7 D, Total Bilirubin 0.6, AST 26, ALT 25, Alkaline Phosphatase 58, Total Protein 5.5 L, Albumin 2.8 L D, Globulin 2.7, Albumin/Globulin Ratio 1.0 L, Triglycerides 164 H, Cholesterol 85 L, LDL Cholesterol Direct < 30.00 L, VLDL Cholesterol 33, HDL Cholesterol 31 L, Cholesterol/HDL Ratio 2.7 01/02/24 05:51: POC Glucose 207 H I & O for Labs for Last 24 Hours: Intake & Output 12/30/23 12/31/23 01/01/24 01/02/24 23:59 23:59 23:59 23:59 Intake Total 3581.063 / 4899.063 1403.514 / 1403.514 Output Total 216 / 216 375 / 375 Balance 3365.063 / 4683.063 1028.514 / 1028.514 Weight 218 lb 6.415 oz 218 lb Constitutional: Present moderate distress Head: Present normocephalic and atraumatic ENT: Present normal exam, normal oropharynx and mucous membranes moist Neck: Present normal inspection and full ROM Respiratory: Present respiratory distress and wheezes; Absent able to speak in complete sentences Cardiac: Present S1/S2, Tachycardia and radial pulses present GI: Present distention, tenderness and guarding; Absent rebound or diminished bowel sounds Skin: Present intact; Absent cyanosis or jaundice Neuro: Present alert, awake and oriented x 3 Extremities: Present normal inspection; Absent clubbing or cyanosis Psychiatric: Present normal affect and cooperative Assessment and Plan *Assessment and plan (1) Acute respiratory failure with hypoxia: Status: Acute Category: Medical Code(s): J96.01 - Acute respiratory failure with hypoxia (2) Septic shock: Status: Acute Category: Medical Code(s): A41.9 - Sepsis, unspecified organism; R65.21 - Severe sepsis with septic shock (3) Pneumonia: Status: Acute Qualifiers: Laterality: right Lung location: middle lobe of lung Pneumonia type: due to unspecified organism Qualified Code(s): J18.9 - Pneumonia, unspecified organism Category: Medical Code(s): J18.9 - Pneumonia, unspecified organism Plan Mr. Garcia is a 78-year-old male with reported history of greater than 30 PPD, COPD, A-fib, hypertension, diabetes and CKD presented to the ER with worsening respiratory distress and increasing oxygen close and pulmonary was called for further evaluation and management. Patient admits worsening fevers and bodyaches for the last 24 hours. Denies any worsening symptoms prior to that. Chest x-ray on admission right lobe consolidation. No other dense base consolidation/effusions noted. Hemodynamically unstable. Neutrophilic leukocytosis upon admission. ABG upon a dmission hypoxic respiratory failure. No evidence of hypercarbia. ANABELLE noted with metabolic acidosis noted. Lactate significantly worsening now at 4.2. Patient was initiated on ceftriaxone azithromycin upon admission. Also receiving heparin infusion for possible PE and history of atrial fibrillation. Patient on examination alert and oriented x 3. On Levophed drip at 8 mcg. Worsening lactate improving Delta, closely monitor. Interval Update: Worsening Leucocytosis. Worsening CXR infiltrates from CXR yesterday, consistent with CT from aspiration bilateral lower lobe pneumonia. Shock improved. Off pressors. MAP greater than 70. Renal function improving Continue to receive Cefepime and azithromycin. Respiratory status improved, weaned to nasal cannula Plan: Continue oxygen supplementation to maintain O2 saturation goal of 90% and above Continue cefepime and azithromycin pending blood and sputum culture results. Renally dose medications. Follow the urine output. Strict I & O DuoNebs every 6 hours and Pulmicort every 12 scheduled
--- NOTE | 2024-01-02 10:47 | EXP.CARD.PN ---
Subjective Subjective Date: 01/02/24 Time: 10:30 Principal diagnosis: pneumonia, afib with rvr Interval history: This is a 78-year-old white gentleman who presented to the emergency department complaints of chills, shortness of breath and not feeling well. The patient was found to have bilateral pneumonia and sepsis. He was also in atrial fibrillation with RVR. He is now rate controlled this morning. And remains on a heparin drip for anticoagulation. Today he denies any chest pain or pressure. He states his shortness of breath has significantly improved and he feels so much better. He denies any chills today. He denies any fevers. He denies any nausea, vomiting, diarrhea, PND orthopnea. He denies any lower extremity edema. Exam Data for Last 24 hours Vital signs and Labs for Last 24 Hours: Temp Pulse Resp BP Pulse Ox O2 Del Method O2 Flow Rate 98.1 F 74 20 125/66 100 Vapotherm 20 01/02/24 08:00 01/02/24 10:05 01/02/24 06:05 01/02/24 10:00 01/02/24 10:05 01/02/24 10:05 01/02/24 10:05 FiO2 35 01/02/24 10:05 Laboratory Results - last 24 hr 01/01/24 09:36: D-Dimer 5.47 H, Troponin I 0.02 01/01/24 11:47: POC Glucose 200 H 01/01/24 14:33: APTT 190.0 H*, Troponin I 0.01 01/01/24 15:07: Lactate 5.1 H 01/01/24 16:52: POC Glucose 244 H 01/01/24 17:20: APTT 200.0 H*, Sodium 127 L, Potassium 4.8 D, Chloride 102, Carbon Dioxide 13 L, Anion Gap 16.8 H, BUN 43 H, Creatinine 1.90 H, Estimated Creat Clear 45, Estimated GFR 34 L, Est GFR ( Amer) 42 L, Glucose 389 H D, Calcium 7.5 L, Troponin I 0.07 H 01/01/24 19:53: POC Glucose 225 H 01/01/24 20:05: Lactate 3.6 H, Troponin I 0.02 01/01/24 21:44: APTT 81.1 H* 01/01/24 23:45: Lactate 3.1 H 01/02/24 04:30: WBC 31.4 H* D, RBC 4.08 L, Hgb 12.3 L, Hct 37.0 L, MCV 90.9, MCH 30.1, MCHC 33.2, RDW 16.3, Plt Count 340, MPV 8.0, Neut % (Auto) 93.5 H, Lymph % (Auto) 2.4 L, [place] % (Auto) 3.7, Eos % (Auto) 0.1, Baso % (Auto) 0.3, Neut # (Auto) 29.4 H, Lymph # (Auto) 0.8, [place] # (Auto) 1.2 H, Eos # (Auto) 0.0, Baso # (Auto) 0.1, Total Counted 100, Neutrophils % (Manual) 90 H, Lymphocytes % (Manual) 8 L, Monocytes % (Manual) 2, Platelet Estimate Normal, RBC Morphology Normal, APTT 55.1 H*, Sodium 131 L, Potassium 4.4, Chloride 108 H, Carbon Dioxide 16 L, Anion Gap 11.4, BUN 42 H, Creatinine 1.70 H, Estimated Creat Clear 50, Estimated GFR 39 L, Est GFR ( Amer) 47 L, Glucose 185 H D, Hemoglobin A1c 7.0 H, Calcium 8.0 L, Magnesium 1.7 D, Total Bilirubin 0.6, AST 26, ALT 25, Alkaline Phosphatase 58, Total Protein 5.5 L, Albumin 2.8 L D, Globulin 2.7, Albumin/Globulin Ratio 1.0 L, Triglycerides 164 H, Cholesterol 85 L, LDL Cholesterol Direct < 30.00 L, VLDL Cholesterol 33, HDL Cholesterol 31 L, Cholesterol/HDL Ratio 2.7 01/02/24 05:51: POC Glucose 207 H I & O for Last 24 hours: Intake & Output 12/30/23 12/31/23 01/01/24 01/02/24 23:59 23:59 23:59 23:59 Intake Total 3581.063 / 4899.063 1403.514 / 1403.514 Output Total 216 / 216 375 / 375 Balance 3365.063 / 4683.063 1028.514 / 1028.514 Weight 218 lb 6.415 oz 218 lb Constitutional Constitutional: no acute distress and obese *Routine HEENT Exam Head: Present normocephalic and atraumatic ENT: Present mucous membranes moist *Routine Neck Exam Neck: Present supple, full ROM and normal carotid upstroke; Absent JVD, carotid bruit or lymphadenopathy *Routine Respiratory Exam Respiratory: Present decreased breath sounds, wheezes, normal respiratory effort, able to speak in complete sentences and symmetric chest movement *Routine Cardiovascular Exam Cardiovascular: Present Normal S1, Normal S2 and irregularly irregular; Absent murmur or gallop *Routine Abdominal Exam Abdominal: Present soft and normoactive bowel sounds; Absent tenderness, distended or organomegaly *Routine Extremities Exam Extremities: Present full ROM, pulses intact and normal capillary refill; Absent cyanosis, clubbing or edema *Routine Skin Exam Skin: Present intact and warm; Absent erythema *Routine Neurological Exam Neurological: Present alert, oriented X3 and CN II-XII intact; Absent sensory deficit or motor deficit Routine Psychiatric Exam Psychiatric: Present normal affect Progress Note: A&P Assessment and plan (1) Acute respiratory failure with hypoxia: Status: Acute (2) Septic shock: Status: Acute (3) Pneumonia: Status: Acute (4) CAD in [place] artery: Status: Acute (5) Peripheral arterial disease: Status: Acute (6) Atrial fibrillation with rapid ventricular response: Status: Acute (7) COPD (chronic obstructive pulmonary disease): Status: Acute (8) HLD (hyperlipidemia): Status: Acute (9) HTN (hypertension): Status: Acute (10) ANABELLE (acute kidney injury): Status: Acute Assessment and Plan Assessment and Plan for All Diagnoses:: Plan: 1. 1. The patient was admitted to the hospital with acute respiratory failure with hypoxia, pneumonia and sepsis. The patient is getting IV antibiotics and on high flow oxygen. Will defer this to pulmonology. 2. The patient was in atrial fibrillation with RVR when he arrived at the hospital. The patient reports that he has no history of atrial fibrillation. He is now rate controlled after being given IV and oral digoxin yesterday. 3. He is currently on a heparin drip for anticoagulation. Prior to discharge home the patient will need to be changed over to oral anticoagulation with either Xarelto or Eliquis. Will discuss these options with the patient and likely switch over his oral anticoagulation tomorrow. 4. The patient's diltiazem is still currently being held due to hypotension. 5. He remains on a Levophed drip this morning for blood pressure support. Will continue to try to wean the patient off of the Levophed today. 6. His initial troponin was negative but his third troponin is slightly elevated at 0.07 with his fourth troponin being negative as well. No plans for invasive left cardiac catheterization at this time. 7. The patient's ejection fraction is approximately 50% on echocardiogram. He does have new regional wall motion abnormalities noted. The patient will need an ischemic evaluation once he has improved/recovered from his pneumonia and sepsis. This can be done on an outpatient basis by his primary radioactivity technician unless his symptoms do not continue to improve then we may consider doing this as an inpatient. 8. Coronary artery disease is present as mentioned above. Continue Plavix. 9. His LDL goal is less than 55. His LDL is less than 30. He is on Livalo on an outpatient basis. 10. The patient is diabetic. His hemoglobin A1c is 7%. He will need aggressive control of his diabetes. Defer management this to the hospitalist. 11. His renal function has improved today and is down to 1.7. Will continue to follow. 12. The patient does have a history of PAD with 2 stents in each of his bilateral lower extremities. Continue Plavix. 13. Further recommendations will be made pending the patient's response to treatment. Thank you for the opportunity to help participate in the care of this patient. All recommendation and orders are per Dr. Purdy.
[2024-01-02] MEDS: CEFEPIME HCL 2 GM in 0.9 % SODIUM CHLORIDE 100 ML IV ×2 (11:25→22:16)
[2024-01-02] MEDS: LACTATED RINGERS 1000ML 1,000 ML 500 ML IV (11:47)
[2024-01-02] MEDS: ENOXAPARIN 100MG/ML SYRINGE 100 MG SQ ×2 (11:54→21:28)
[2024-01-02 12:03] LABS: POC Glucose,Bedside 210 (70-110)
[2024-01-02 17:09] LABS: POC Glucose,Bedside 164 (70-110)
[2024-01-02] MEDS: IPRATROPIUM/ALBUTEROL 3 ML NEB IH (18:16)
[2024-01-02 21:16] LABS: POC Glucose,Bedside 150 (70-110)
[2024-01-02] MEDS: AZITHROMYCIN 500 MG in 0.9 % SODIUM CHLORIDE 250 ML 250 MG IV (22:15)
[2024-01-03] VITALS (15 sets, daily range): BP systolic 117–138; BP diastolic 56–84; PULSE 80–147; RESP 18–25; TEMP 36.6–36.8; O2SAT 91–100; BMI 33.1
[2024-01-03] MEDS: IPRATROPIUM/ALBUTEROL 3 ML NEB IH ×5 (00:37→23:30)
--- NOTE | 2024-01-03 05:40 | PC.NURSE ---
Patient has rested well this shift. Patient has had about 4 loose bowel movements this shift, has used BSC. Patient is AOx4 able to make needs known. Remains on 2LNC. Lung sounds have scattered expiratory wheezing in upper and middle lobes. Afib on tele. Iv dressings have been changed this shift. No acute changes noted this shift. call france, bedside table, water pitcher, and personal belongings all with in reach. Care is ongoing.
[2024-01-03] MEDS: humaLOG 100 UNITS/ML 3ML VIAL (SSI) SQ ×4 (05:54→21:28)
[2024-01-03 05:57] LABS: POC Glucose,Bedside 170 (70-110)
[2024-01-03] MEDS: BUDESONIDE 0.5MG/2ML NEB 0.5 MG IH ×2 (06:24→18:14)
[2024-01-03 07:17] LABS: Hematocrit 33.8 % (42.0-52.0); Lymphocytes # 0.5 K/mm3 (0.7-4.5); Lymphocytes % 2.4 % (10-50); Mean Corpuscular HGB Conc 32.5 g/dL (31.8-35.4); Mean Corpuscular Hemoglobin 29.1 pg (27.0-31.2); Mean Corpuscular Volume 89.6 fl (80-94); Mean Platelet Volume 7.5 fl (7.4-10.4); Monocytes # 0.6 K/mm3 (0.1-1.0); Monocytes % 2.8 % (1.7-9.3); Neutrophils # 19.8 K/mm3 (1.8-7.8); Neutrophils % 94.8 % (37.0-80.0); Platelet Count 255 K/mm3 (142-424); Red Blood Count 3.77 M/mm3 (4.60-6.20); Red Cell Distribution Width 15.7 % (11.5-17.5); White Blood Count 20.9 K/mm3 (4.8-10.8)
[2024-01-03 07:20] LABS: Chloride 110 mmol/L (98-107); MANUAL DIFFERENTIAL MANUAL DIFFERENTIAL (MANUAL DIFF); Sodium 134 mmol/L (136-145)
[2024-01-03 07:21] LABS: Potassium 4.4 mmoL/L (3.5-5.1)
[2024-01-03 07:23] LABS: Alanine Aminotransferase 17 U/L (12-78); Albumin Level 2.6 g/dl (3.5-5.0); Albumin/Globulin Ratio 0.9 (1.1-1.8); Alkaline Phosphatase 77 U/L (38-126); Anion Gap 7.4 mEq/L (5-15); Aspartate Amino Transferase 23 U/L (17-59); Bilirubin,Total 0.5 mg/dl (0.2-1.3); Blood Urea Nitrogen 40 mg/dl (9-20); Carbon Dioxide 21 mmol/L (22.0-30.0); Creatinine Clearance Estimated 67 mL/min (50-200); Estimated Glomerular Filt Rate 53 ml/min (>60); GFR (African American) 65 ML/MIN (>60); Globulin 2.8 g/dL (1.3-3.2); Total Protein,Serum 5.4 g/dl (6.3-8.2)
[2024-01-03 07:24] LABS: Calcium 8.4 mg/dl (8.4-10.2); Glucose 162 mg/dl (74-100)
[2024-01-03] MEDS: EZETIMIBE 10MG TABLET 10 MG PO (08:52)
[2024-01-03] MEDS: CLOPIDOGREL 75MG TAB 75 MG PO (08:52)
[2024-01-03] MEDS: DULOXETINE 30MG CAPSULE.DR 60 MG PO (08:52)
[2024-01-03] MEDS: FAMOTIDINE 20MG TABLET 20 MG PO ×2 (08:53→21:28)
[2024-01-03] MEDS: ENOXAPARIN 100MG/ML SYRINGE 100 MG SQ (08:53)
[2024-01-03] MEDS: DIGOXIN 0.125MG TABLET 125 MCG PO (08:53)
[2024-01-03] MEDS: predniSONE 20MG TAB 20 MG PO ×2 (08:53→21:28)
[2024-01-03] MEDS: ASCORBIC ACID 500MG TAB 500 MG PO (08:53)
--- NOTE | 2024-01-03 09:08 | PC.NURSE ---
as pt sitting up in bed to take morning meds, pt got very short of breath sitting up/upon exertion, oxygen saturations decreased to 71% on 2LNC so increased to 4LNC and oxygen saturations went up to 91-93% on 4LNC but pt was still short of breath with pursed lip breathing, waited a few moments and pt's SOA improved and pt is no longer is pursed lip breathing but kept oxygen up at 4LNC until know pt's oxygen saturations okay for sustained period of time
--- NOTE | 2024-01-03 10:15 | SW/DCPLANNER ---
Addendum entered by [facility] 01/04/24 13:16: Dori w/ [facility] stated that services will begin tomorrow morning for this patient. Addendum entered by [facility] 01/04/24 13:04: [facility] is not able to accept this patient due to insurance. Patient information/order [facility] to [facility]: Dori is currently reviewing. Megan zavala/ Gissell has called and discussed medication cost, delivery and first teaching w/ patient's Soif: patient/family are agreeable w/ this plan. Addendum entered by [facility] 01/04/24 10:47: Patient will need additional 7 days of IV antibiotics at home: patient information/order will be faxed to [facility]. Patient/family are agreeable to administer IV medications at home. Original Note: I spoke w/ this patient and his family regarding plans once medically stable for discharge. PT evaluated patient this AM and recommended home health services. Patient is agreeable to home health at time of discharge and prefers to use [facility] at time of discharge. Patient information/order will be faxed to [facility] once medically stable for discharge.
--- NOTE | 2024-01-03 10:18 | P.PN_ITS ---
Subjective *Date: 01/03/24 *Time: 12:00 Interval history: No acute respiratory events overnight. Patient admits continued improvement in his respiratory symptoms. Pulmonology Exam Inpatient Vital signs and Labs for Last 24 Hours: Temp Pulse Resp BP Pulse Ox O2 Del Method O2 Flow Rate 98.1 F 95 H 20 135/63 95 Nasal Cannula 2 01/03/24 08:00 01/03/24 08:00 01/03/24 08:00 01/03/24 08:00 01/03/24 08:00 01/03/24 08:00 01/03/24 08:00 FiO2 35 01/02/24 10:05 Laboratory Results - last 24 hr 01/02/24 11:23: POC Glucose 210 H 01/02/24 16:56: POC Glucose 164 H 01/02/24 20:51: POC Glucose 150 H 01/03/24 05:50: POC Glucose 170 H 01/03/24 06:38: WBC 20.9 H* D, RBC 3.77 L, Hgb 11.0 L, Hct 33.8 L, MCV 89.6, MCH 29.1, MCHC 32.5, RDW 15.7, Plt Count 255, MPV 7.5, Neut % (Auto) 94.8 H, Lymph % (Auto) 2.4 L, [place] % (Auto) 2.8, Eos % (Auto) 0.0 L, Baso % (Auto) 0.0 L, Neut # (Auto) 19.8 H, Lymph # (Auto) 0.5 L, [place] # (Auto) 0.6, Eos # (Auto) 0.0, Baso # (Auto) 0.0, Sodium 134 L, Potassium 4.4, Chloride 110 H, Carbon Dioxide 21 L, Anion Gap 7.4, BUN 40 H, Creatinine 1.30 H D, Estimated Creat Clear 67, Estimated GFR 53 L, Est GFR ( Amer) 65 D, Glucose 162 H, Calcium 8.4, Total Bilirubin 0.5, AST 23, ALT 17 D, Alkaline Phosphatase 77, Total Protein 5.4 L, Albumin 2.6 L, Globulin 2.8, Albumin/Globulin Ratio 0.9 L I & O for Labs for Last 24 Hours: Intake & Output 12/31/23 01/01/24 01/02/24 01/03/24 23:59 23:59 23:59 23:59 Intake Total 3581.063 / 4899.063 3727.139 / 4037.139 910 / 910 Output Total 216 / 216 876 / 876 950 / 950 Balance 3365.063 / 4683.063 2851.139 / 3161.139 -40 / -40 Weight 218 lb 6.415 oz 218 lb 224 lb Microbiology Reports for the Last 24 Hours: Microbiology 01/01/24 01:13 Sputum - Expectorated Sputum Gram Stain - Final Constitutional: Present moderate distress Head: Present normocephalic and atraumatic ENT: Present normal exam, normal oropharynx and mucous membranes moist Neck: Present normal inspection and full ROM Respiratory: Present respiratory distress and able to speak in complete sentences; Absent wheezes Cardiac: Present S1/S2, Tachycardia and radial pulses present GI: Present distention, tenderness and guarding; Absent rebound or diminished bowel sounds Skin: Present intact; Absent cyanosis or jaundice Neuro: Present alert, awake and oriented x 3 Extremities: Present normal inspection; Absent clubbing or cyanosis Psychiatric: Present normal affect and cooperative Assessment and Plan *Assessment and plan (1) Acute respiratory failure with hypoxia: Status: Acute Category: Medical Code(s): J96.01 - Acute respiratory failure with hypoxia (2) Septic shock: Status: Acute Category: Medical Code(s): A41.9 - Sepsis, unspecified organism; R65.21 - Severe sepsis with septic shock (3) Pneumonia: Status: Acute Qualifiers: Laterality: right Lung location: middle lobe of lung Pneumonia type: due to unspecified organism Qualified Code(s): J18.9 - Pneumonia, unspecified organism Category: Medical Code(s): J18.9 - Pneumonia, unspecified organism Plan Mr. Garcia is a 78-year-old male with reported history of greater than 30 PPD, COPD, A-fib, hypertension, diabetes and CKD presented to the ER with worsening respiratory distress and increasing oxygen close and pulmonary was called for further evaluation and management. Patient admits worsening fevers and bodyaches for the last 24 hours. Denies any worsening symptoms prior to that. Chest x-ray on admission right lobe consolidation. No other dense base consolidation/effusions noted. Hemodynamically unstable. Neutrophilic leukocytosis upon admission. ABG upon admission hypoxic respiratory failure. No evidence of hypercarbia. ANABELLE noted with metabolic acidosis noted. Lactate significantly worsening now at 4.2. Patient was initiated on ceftriaxone azithromycin upon admission. Also receiving heparin infusion for possible PE and history of atrial fibrillation. Patient on examination alert and oriented x 3. On Levophed drip at 8 mcg. Worsening lactate improving Delta, closely monitor. Interval Update: No acute respiratory events overnight. Stable ox requirements. Continue to remain off pressors. Continue to receive cefepime and azithromycin. Improving leukocytosis. Chest x-ray from today personally reviewed, continued improvement in the noted airspace disease. Plan: Continue oxygen supplementation to maintain O2 saturation goal of 90% and above Continue cefepime and azithromycin pending blood and sputum culture results. Sputum cultures obtained today. Renally dose medications. Follow the urine output. Strict I & O DuoNebs every 6 hours and Pulmicort every 12 scheduled # Thank you for involving pulmonary in this patient care. Will continue to follow.
--- NOTE | 2024-01-03 10:19 | XR_ITS ---
FINAL REPORT CLINICAL HISTORY: PNM COMPARISON: 01/01/2024 FINDINGS: A single portable view of the chest was obtained. The pulmonary vascularity are within normal limits. The mediastinum is within normal limits. Cardiomegaly is present. A right PICC line is present, stable in positioning. There is partial improvement of the right midlung opacities since the prior exam, atelectasis or pneumonia. There is improved aeration in the right perihilar region as well. The bony thorax is intact. IMPRESSION: Improved aeration in the lung bases and the right perihilar region since the prior exam of January 01. Reviewed, Interpreted and Dictated by Adam Erwin III, MD Transcribed by Catherine Mccoy Authenticated and . [facility]
[2024-01-03 10:44] LABS: Lymphocytes % 2 % (10-50); Monocytes % 2 % (2-9); Neutrophils % 96 % (42-76); Platelet Estimate Normal; RBC Morphology Normal; Total Cells Counted 100
--- NOTE | 2024-01-03 10:45 | PC.NURSE ---
changed pt's sat probe to finger from forehead, oxygen saturations 97-100% decreased pt's oxygen to 2LNC from 4LNC, oxygen saturations staying 94-100% on 2LNC
--- NOTE | 2024-01-03 10:59 | HMH.PTEV ---
Physical Therapy Evaluation Rehab PT IP Evaluation Start: 01/03/24 10:33 Freq: ONCE Status: Active Protocol: Document 01/03/24 10:36 [facility] (Rec: 01/03/24 10:59 [email or web address] [id number]) Subjective/History History History 78 yowm adm to [facility] with PNA, septic shock, and ANABELLE. He has PHMX of COPD, a fib, HTN, DM, CAD,and gout. He reports he lives with SO, 2 steps to enter the home, and he generally uses a cane for all ambulation. Subjective Subjective He reports feeling some increased shortness of air this am, but readily agrees to mobility assessment. New diagnosis of cancer in past 12 No months? Rehab PT IP Eval Objective Appearance Patient Behavior Appropriate Patient Orientation Person,Place,Time Difficulty following instructions none Speech Pattern Clear Ambulation Patient Able to Ambulate Yes Ambulation Observation IP General Gait Pattern Observation Wide Based Gait Ambulation Distance (feet) 5 Ambulation Assistive Device None Ambulation Ability Contact Guard/Hand Hold Balance Ability to Arise Able, uses arms to help Sitting Balance Steady, safe Standing Balance Steady, wide stance Dynamic Sitting Balance Ability Good Dynamic Standing Balance Ability Good Transfers Bed Transfer Ability Contact Guard/Hand Hold Chair Transfer Ability Contact Guard/Hand Hold Sit to Stand Bed Transfer Ability Contact Guard/Hand Hold Sit to Stand Chair Transfer Ability Contact Guard/Hand Hold ROM All Extremities PT ROM Status WFL MMT All Extremities PT MMT WFL Rehab PT IP prob,goals,plan Problems Date of Evaluation: 01/03/24 PT IP Problems Bed Mobility,Transfers,Gait Rehab Potential Rehab Potential Good Plan PT Intervention Plan Bed Mobility,Transfers,Gait, Self care,Therapeutic Exercise PT Plan Frequency Daily Duration LOS Discharge Goals Bed Transfer Ability Supervision/Stand by Sit to Stand Chair Transfer Ability Supervision/Stand by Ambulation Assistive Device Rolling Walker Ambulation Distance (feet) 30 Discharge Plan PT Discharge Plan Pt is currently appropriate to return home once medically stable for d/c. Eval Complexity Eval Charge Codes 99949 - High Complexity PHYSICIAN CERTIFICATION: I certify the specified therapy services for Sacha Garcia are required, authorized, and reviewed every 30 days.
[2024-01-03] MEDS: LOPERAMIDE 2MG CAPSULE 2 MG PO (11:01)
[2024-01-03] MEDS: CEFEPIME HCL 2 GM in 0.9 % SODIUM CHLORIDE 100 ML IV ×2 (11:01→22:00)
[2024-01-03 11:35] LABS: POC Glucose,Bedside 272 (70-110)
[2024-01-03] MEDS: dilTIAZem ER 180 MG CAPSULE 360 MG PO (12:57)
[2024-01-03] MEDS: METOPROLOL SUCCINATE XL 25MG TABLET 25 MG PO (12:57)
--- NOTE | 2024-01-03 13:33 | HMH.OTEV ---
OT Inpatient Evaluation Rehab OT IP Evaluation Start: 01/03/24 10:33 Freq: ONCE Status: Active Protocol: Document 01/03/24 13:28 [facility] (Rec: 01/03/24 13:33 [facility] [id number]) Rehab OT IP Assessment Subjective History Pt oriented x 3 on arrival. Pt agreeable to engage in therapy evaluation. Pt is a 78 yowm adm to [facility] with PNA, septic shock, and ANABELLE. He has PHMX of COPD, a fib, HTN, DM, CAD,and gout. He reports he lives with SO, 2 steps to enter the home, and he generally uses a cane for all ambulation. Pt claims he normally lives alone and is independent with all ADLS and IADLs. Pt also still drives. Subjective I was able to do everything I needed. Objective Patient Orientation Person,Place,Birthday Right Upper Extremity Gross ROM WFL Left Upper Extremity Gross ROM WFL Shoulder ROM Limitations Muscle Weakness Elbow ROM Limitations Muscle Weakness Wrist Limitations of Range of Motion Muscle Weakness Transfer Training Sit/Stand Transfer Assist Level Contact Guard/Hand Hold Chair Transfer Ability Contact Guard/Hand Hold Chair Transfer Technique Sit to/from Ambulatory Chair Transfer Assistive Devices None Lower Body Dressing Ability Standby Assistance Rehab OT IP prob,goals,plan Problems Date of Evaluation: 01/03/24 OT IP Problems Bed Mobility,Transfers,Balance ,Self care,Safety Rehab Potential Rehab Potential Good Equipment Needs Assistive Devices Rolling / Wheeled Walker Plan OT intervention Plan Bed Mobility,Transfers,Balance ,Self care,Safety,Therapeutic Exercise OT Plan Frequency Daily Duration LOS Discharge Goals Bed Mobility Ability Standby Assistance Sit to Stand Chair Transfer Ability Supervision/Stand by Chair Transfer Ability Supervision/Stand by Chair Transfer Technique Sit to/from Ambulatory Chair Transfer Assistive Devices Rolling Walker Feeding Ability Assist with Tray Set Up Lower Body Dressing Ability Standby Assistance Upper Body Dressing Ability Standby Assistance Bathing Ability Minimal Assistance Performing Toilet Hygiene Ability Standby Assistance Overall Commode/Toilet Transfer Ability Standby Assistance Commode/Toilet Transfer Technique Sit to/from Ambulatory Commode/Toilet Transfer Assistive Grab Bars Devices Oral Care Assist Standby Assistance Decrease in Endurance Yes Discharge Plan OT Discharge Plan Pt will continue to be seen for OT services while at [facility]. Pt can return home with family assistance once medically stable per physician . Therapist recommends HHOT evaluation upon returning home for continued skilled therapy . Eval Complexity Eval Charge Codes 58444 - Moderate Complexity PHYSICIAN CERTIFICATION: I certify the specified therapy services for Sacha Garcia are required, authorized, and reviewed every 30 days.
--- NOTE | 2024-01-03 13:54 | P.PN_ITS ---
Subjective Subjective Date: 01/03/24 Time: 11:00 Principal diagnosis: pneumonia, afib with rvr Interval history: This is a 78-year-old white gentleman who presented to the emergency department complaints of chills, shortness of breath and not feeling well. The patient was found to have bilateral pneumonia and sepsis. He was also in atrial fibrillation with RVR. He remains rate controlled this morning and is on Lovenox for anticoagulation. This morning he states he is a little more short of breath and fatigued today than he was yesterday. He states he notices his shortness of breath mostly with exertion. He just feels like he has no energy. He denies any chest pain or pressure. He denies any lower extremity edema. He denies any fever, chills, nausea, vomiting, diarrhea, PND or orthopnea. Exam Data for Last 24 hours Vital signs and Labs for Last 24 Hours: Temp Pulse Resp BP Pulse Ox O2 Del Method O2 Flow Rate 97.8 F 107 H 20 132/56 L 94 L Nasal Cannula 2 01/03/24 12:00 01/03/24 12:00 01/03/24 12:00 01/03/24 12:00 01/03/24 12:00 01/03/24 13:00 01/03/24 13:00 FiO2 35 01/02/24 10:05 Laboratory Results - last 24 hr 01/02/24 16:56: POC Glucose 164 H 01/02/24 20:51: POC Glucose 150 H 01/03/24 05:50: POC Glucose 170 H 01/03/24 06:38: WBC 20.9 H* D, RBC 3.77 L, Hgb 11.0 L, Hct 33.8 L, MCV 89.6, MCH 29.1, MCHC 32.5, RDW 15.7, Plt Count 255, MPV 7.5, Neut % (Auto) 94.8 H, Lymph % (Auto) 2.4 L, [place] % (Auto) 2.8, Eos % (Auto) 0.0 L, Baso % (Auto) 0.0 L, Neut # (Auto) 19.8 H, Lymph # (Auto) 0.5 L, [place] # (Auto) 0.6, Eos # (Auto) 0.0, Baso # (Auto) 0.0, Total Counted 100, Neutrophils % (Manual) 96 H, Lymphocytes % (M anual) 2 L, Monocytes % (Manual) 2, Platelet Estimate Normal, RBC Morphology Normal, Sodium 134 L, Potassium 4.4, Chloride 110 H, Carbon Dioxide 21 L, Anion Gap 7.4, BUN 40 H, Creatinine 1.30 H D, Estimated Creat Clear 67, Estimated GFR 53 L, Est GFR ( Amer) 65 D, Glucose 162 H, Calcium 8.4, Total Bilirubin 0.5, AST 23, ALT 17 D, Alkaline Phosphatase 77, Total Protein 5.4 L, Albumin 2.6 L, Globulin 2.8, Albumin/Globulin Ratio 0.9 L 01/03/24 10:57: POC Glucose 272 H I & O for Last 24 hours: Intake & Output 12/31/23 01/01/24 01/02/24 01/03/24 23:59 23:59 23:59 23:59 Intake Total 3581.063 / 4899.063 3727.139 / 4037.139 910 / 910 Output Total 216 / 216 876 / 876 1500 / 1500 Balance 3365.063 / 4683.063 2851.139 / 3161.139 -590 / -590 Weight 218 lb 6.415 oz 218 lb 224 lb Microbiology Reports for the Last 24 Hours: Microbiology 01/01/24 01:13 Sputum - Expectorated Sputum Gram Stain - Final Constitutional Constitutional: no acute distress and obese *Routine HEENT Exam Head: Present normocephalic and atraumatic ENT: Present mucous membranes moist *Routine Neck Exam Neck: Present supple, full ROM and normal carotid upstroke; Absent JVD, carotid bruit or lymphadenopathy *Routine Respiratory Exam Respiratory: Present decreased breath sounds, wheezes, normal respiratory effort, able to speak in complete sentences and symmetric chest movement *Routine Cardiovascular Exam Cardiovascular: Present Normal S1, Normal S2, tachycardia and irregularly irregular; Absent murmur or gallop *Routine Abdominal Exam Abdominal: Present soft and normoactive bowel sounds; Absent tenderness, distended or organomegaly *Routine Extremities Exam Extremities: Present full ROM, pulses intact and normal capillary refill; Absent cyanosis, clubbing or edema *Routine Skin Exam Skin: Present intact and warm; Absent erythema *Routine Neurological Exam Neurological: Present alert, oriented X3 and CN II-XII intact; Absent sensory deficit or motor deficit Routine Psychiatric Exam Psychiatric: Present normal affect Progress Note: A&P Assessment and plan (1) CAD in [place] artery: Status: Acute (2) Acute respiratory failure with hypoxia: Status: Acute (3) Septic shock: Status: Acute (4) Pneumonia: Status: Acute (5) ANABELLE (acute kidney injury): Status: Acute (6) HTN (hypertension): Status: Acute (7) HLD (hyperlipidemia): Status: Acute (8) Diabetes: Status: Acute (9) COPD (chronic obstructive pulmonary disease): Status: Acute (10) Peripheral arterial disease: Status: Acute (11) Atrial fibrillation with rapid ventricular response: Status: Acute Assessment and Plan Assessment and Plan for All Diagnoses:: Plan: 1. The patient was admitted to the hospital with acute respiratory failure with hypoxia, pneumonia and sepsis. The patient is getting IV antibiotics and on high flow oxygen. Will defer this to pulmonology. 2. The patient was in atrial fibrillation with RVR when he arrived at the hospital. His heart rate is higher today than it was yesterday and he is a little more short of breath and fatigue. It could be because of his high heart rate. Stop digoxin. 3. Restart his diltiazem ER 360 mg p.o. daily for rate control of his atrial fibrillation. 4. Start Toprol XL 25 mg p.o. daily for rate control of his atrial fibrillation. 5. We will stop Lovenox and put him on Xarelto 20 mg p.o. nightly for long-term anticoagulation. 6. His blood pressure is well-controlled today and actually a little on the higher side. His Levophed drip has been stopped. As mentioned before we will restart his diltiazem and start him on Toprol today. 7. The patient's ejection fraction is approximately 50% on echocardiogram. He does have new regional wall motion abnormalities noted. The patient will need an ischemic evaluation once he has improved/recovered from his pneumonia and sepsis. This can be done on an outpatient basis. The patient is going to switch his cardiology care here to [facility] cardiology. Once he is discharged from the hospital he will need to proceed with left cardiac catheterization due to his new wall motion abnormalities noted on echocardiogram. 8. Following his left cardiac catheterization on an outpatient basis, if the patient remains in atrial fibrillation then we can consider FABIOLA/cardioversion at that time to try to get him back in sinus rhythm. 9. Coronary artery disease is present as mentioned above. Recommend outpatient left cardiac catheterization once he has recovered from pneumonia. Continue Plavix. 10. His LDL goal is less than 55. His LDL is less than 30. He is on Livalo on an outpatient basis. 11. The patient is diabetic. His hemoglobin A1c is 7%. He will need aggressive control of his diabetes. Defer management this to the hospitalist. 12. His renal function has improved and down to 1.3 today. 13. The patient does have a history of PAD with 2 stents in each of his bilateral lower extremities. Continue Plavix. 14. Further recommendations will be made pending the patient's response to treatment. Thank you for the opportunity to help participate in the care of this patient. All recommendation and orders are per Dr. Purdy.
[2024-01-03 15:13] LABS: Legionella pneumophila Urinary Negative (Negative)
[2024-01-03 16:35] LABS: Body Fluid Culture, Sterile Not indicated. (.); Organism ID Not indicated. (.); Specimen Source Urine (.); Streptococcus pneumoniae Ag Negative (Negative)
[2024-01-03] MEDS: RIVAROXABAN 10MG TABLET 20 MG PO (16:41)
[2024-01-03 16:43] LABS: POC Glucose,Bedside 243 (70-110)
--- NOTE | 2024-01-03 16:51 | EXP.ACUTE.PN ---
Subjective *Date: 01/03/24 *Time: 16:51 Interval history: Feeling better today. Weaned to 2 L. No nausea or vomiting. Tolerating p.o. intake. Having bowel movements. Denies abdominal pain, chest pain. Alert and oriented. Medical Exam Vital signs and Labs for Last 24 Hours: Vital Signs Temp Pulse Pulse Resp BP Pulse Ox O2 Del Method 01/03/24 16:00 95 Nasal Cannula 01/03/24 15:47 98.0 F 97 H 25 H 133/78 91 L Nasal Cannula 01/03/24 15:00 Nasal Cannula 01/03/24 13:00 Nasal Cannula 01/03/24 11:00 Nasal Cannula 01/03/24 09:00 Nasal Cannula 01/03/24 12:00 107 H 20 132/56 L 94 L Nasal Cannula 01/03/24 10:00 89 20 136/74 92 L Nasal Cannula 01/03/24 12:00 100 H 01/03/24 12:00 97.8 F 01/03/24 11:45 102 H 01/03/24 11:45 106 H 01/03/24 08:00 147 H 01/03/24 08:00 98.1 F 01/03/24 08:00 95 H 20 135/63 95 Nasal Cannula 01/03/24 06:00 90 18 124/84 100 Nasal Cannula 01/03/24 06:24 80 01/03/24 06:24 84 01/03/24 04:00 97 H 20 126/70 100 Room Air 01/03/24 04:00 116 H 01/03/24 02:00 97 H 18 117/76 98 Nasal Cannula 01/03/24 00:00 100 H 01/03/24 00:00 98.0 F 110 H 24 130/60 96 Nasal Cannula 01/03/24 00:54 86 01/03/24 00:54 96 H 01/02/24 23:00 Nasal Cannula 01/02/24 20:00 111 H 01/02/24 22:00 97.9 F 96 H 20 102/54 L 98 Nasal Cannula 01/02/24 21:00 100 Non-Rebreather 01/02/24 21:00 Nasal Cannula 01/02/24 20:00 101 H 24 144/72 H 100 Nasal Cannula 01/02/24 18:37 89 01/02/24 18:37 96 H 01/02/24 18:37 99 Nasal Cannula 01/02/24 18:00 100 Nasal Cannula 01/02/24 18:00 93 H 14 130/60 100 Nasal Cannula O2 Flow Rate 01/03/24 16:00 2 01/03/24 15:47 2 01/03/24 15:00 2 01/03/24 13:00 2 01/03/24 11:00 2 01/03/24 09:00 2 01/03/24 12:00 2 01/03/24 10:00 4 01/03/24 12:00 01/03/24 12:00 01/03/24 11:45 01/03/24 11:45 01/03/24 08:00 01/03/24 08:00 01/03/24 08:00 2 01/03/24 06:00 2 01/03/24 06:24 01/03/24 06:24 01/03/24 04:00 2 01/03/24 04:00 01/03/24 02:00 2 01/03/24 00:00 01/03/24 00:00 2 01/03/24 00:54 01/03/24 00:54 01/02/24 23:00 2 01/02/24 20:00 01/02/24 22:00 2 01/02/24 21:00 2 01/02/24 21:00 2 01/02/24 20:00 2 01/02/24 18:37 01/02/24 18:37 01/02/24 18:37 2 01/02/24 18:00 2 01/02/24 18:00 2 Intake and Output 01/03/24 01/03/24 01/03/24 07:59 15:59 23:59 Intake Total 310 / 1180 870 / 1180 Output Total 950 / 1675 725 / 1675 Balance -640 / -495 145 / -495 Intake: Intake, Oral Amount 60 / 930 870 / 930 Intake, Total IV Amount 250 / 250 Azithromycin 500 mg In 0.9 % 250 / 250 Sodium Chloride 250 ml @ 250 mls/hr IV Q24H [facility] Rx#:[id number] Output: Output, Urine Amount 950 / 1675 725 / 1675 Other: Number of Voids 0 Number of Unmeasured Voids 0 Number of Bowel Movements 1 1 Weight 101.605 kg Patient Weight 01/03/24 23:59 Weight 101.605 kg Laboratory Results - last 24 hr 01/01/24 15:59: Fluid Culture Not indicated., Ur L.pneumophila Ag Negative, S. pneumoniae Antigen Negative, S. pneumoniae Ag Source Urine, Organism ID Not indicated. 01/02/24 16:56: POC Glucose 164 H 01/02/24 20:51: POC Glucose 150 H 01/03/24 05:50: POC Glucose 170 H 01/03/24 06:38: WBC 20.9 H* D, RBC 3.77 L, Hgb 11.0 L, Hct 33.8 L, MCV 89.6, MCH 29.1, MCHC 32.5, RDW 15.7, Plt Count 255, MPV 7.5, Neut % (Auto) 94.8 H, Lymph % (Auto) 2.4 L, [place] % (Auto) 2.8, Eos % (Auto) 0.0 L, Baso % (Auto) 0.0 L, Neut # (Auto) 19.8 H, Lymph # (Auto) 0.5 L, [place] # (Auto) 0.6, Eos # (Auto) 0.0, Baso # (Auto) 0.0, Total Counted 100, Neutrophils % (Manual) 96 H, Lymphocytes % (Manual) 2 L, Monocytes % (Manual) 2, Platelet Estimate Normal, RBC Morphology Normal, Sodium 134 L, Potassium 4.4, Chloride 110 H, Carbon Dioxide 21 L, Anion Gap 7.4, BUN 40 H, Creatinine 1.30 H D, Estimated Creat Clear 67, Estimated GFR 53 L, Est GFR ( Amer) 65 D, Glucose 162 H, Calcium 8.4, Total Bilirubin 0.5, AST 23, ALT 17 D, Alkaline Phosphatase 77, Total Protein 5.4 L, Albumin 2.6 L, Globulin 2.8, Albumin/Globulin Ratio 0.9 L 01/03/24 10:57: POC Glucose 272 H 01/03/24 16:36: POC Glucose 243 H I & O for Labs for Last 24 Hours: Intake & Output 12/31/23 01/01/24 01/02/24 01/03/24 23:59 23:59 23:59 23:59 Intake Total 3581.063 / 4899.063 3727.139 / 4037.139 1180 / 1180 Output Total 216 / 216 876 / 876 1675 / 1675 Balance 3365.063 / 4683.063 2851.139 / 3161.139 -495 / -495 Weight 99.065 kg 98.883 kg 101.605 kg Microbiology Reports for the Last 24 Hours: Microbiology 01/01/24 01:13 Sputum - Expectorated Sputum Gram Stain - Final Constitutional: Present no acute distress, obese, chronically ill appearing and cooperative Head: Present atraumatic and normocephalic ENT: Present normal exam Neck: Present normal inspection Respiratory: Present rhonchi, crackles (Posterior lung nieto) and normal respiratory effort; Absent wheezes Cardiac: Present Reg Rate and Rhythm GI: Present soft and normal bowel sounds; Absent distention or tenderness Rectal (male): Present deferred Extremities: Present normal inspection and full ROM Skin: Present intact; Absent erythema Neuro: Present Grossly Intact, alert, awake, oriented x 3 and moves all extremities Assessment and Plan *Assessment and plan (1) Pneumonia: Status: Acute Qualifiers: Laterality: right Lung location: middle lobe of lung Pneumonia type: due to unspecified organism Qualified Code(s): J18.9 - Pneumonia, unspecified organism Category: Medical Code(s): J18.9 - Pneumonia, unspecified organism (2) Septic shock: Status: Resolved Category: Medical Code(s): A41.9 - Sepsis, unspecified organism; R65.21 - Severe sepsis with septic shock (3) Respiratory failure: Status: Acute Qualifiers: Chronicity: acute Respiratory failure complication: hypoxia Qualified Code(s): J96.01 - Acute respiratory failure with hypoxia Category: Medical Code(s): J96.90 - Respiratory failure, unspecified, unspecified whether with hypoxia or hypercapnia (4) ANABELLE (acute kidney injury): Status: Acute Category: Medical Code(s): N17.9 - Acute kidney failure, unspecified (5) Atrial fibrillation with rapid ventricular response: Status: Acute Category: Medical Code(s): I48.91 - Unspecified atrial fibrillation (6) COPD (chronic obstructive pulmonary disease): Status: Acute Qualifiers: COPD type: unspecified COPD Qualified Code(s): J44.9 - Chronic obstructive pulmonary disease, unspecified Category: Medical Code(s): J44.9 - Chronic obstructive pulmonary disease, unspecified (7) Diabetes: Status: Acute Qualifiers: Diabetes mellitus type: type 2 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: without fdc use Diabetes mellitus complication status: without complication Qualified Code(s): E11.9 - Type 2 diabetes mellitus without complications Category: Medical Code(s): E11.9 - Type 2 diabetes mellitus without complications (8) HLD (hyperlipidemia): Status: Acute Qualifiers: Hyperlipidemia type: mixed hyperlipidemia Qualified Code(s): E78.2 - Mixed hyperlipidemia Category: Medical Code(s): E78.5 - Hyperlipidemia, unspecified (9) HTN (hypertension): Status: Acute Qualifiers: Hypertension type: primary hypertension Qualified Code(s): I10 - Essential (primary) hypertension Category: Medical Code(s): I10 - Essential (primary) hypertension (10) Gout: Status: Acute Category: Medical Code(s): M10.9 - Gout, unspecified (11) Obesity: Status: Acute Category: Medical Code(s): E66.9 - Obesity, unspecified Plan 78 year old male presented to [facility] ED w/ c/o body chills, sob, and feeling ill. PHMX of COPD, a fib, HTN, DM, CAD,and gout. Pt states his physicians are at [place]. He denies any chest pain or recent exposure to sickness. The ED work revealed a fib rvr, leukocytosis of 32.7, creatinine of 1.3, lactate of 2.7, and pneumonia located in the right middle lobe. The pt received two duonebs upon arrival to the ED. The pt meets sepsis criteria with a HR of 127, RR of 31, and leukocytosis of 32.7. His COVID/flu swab was negative in ED. The ED physician consulted the hospitalist team for further medical management. The pt had blood cultures obtain prior to be started on Rocephin and azithromycin. Continues to show improvement. Weaning oxygen. Continues to require inpatient management. Stable off pressors for over 24 hours. Anticipate discharge in the next day or 2. Pulmonology and cardiology continue to assist with care. Problems addressed as follow: Septic shock, resolving PNEUMONIA RESP FAILURE -Pulmonology consulted, appreciate their assistance. Discussed case this morning, recommend continuing cefepime and azithromycin. Sputum and blood culture still pending. DuoNebs every 6 hours and Pulmicort every 12 hours scheduled. -Repeat CBC, CMP, magnesium ordered for the morning. -Continue nasal cannula oxygen, currently on 2 L. Wean for goal saturation greater 90%. - Chest x-ray personally reviewed, improvement in airspace disease ATRIAL FIBRILLATION W/ RVR -HX of a fib. Home medication is diltiazem 360 and plavix 75mg. - Initiated on digoxin 250 mcg IV every 6 hours x 2 doses with progression to 125 mcg p.o. daily for rate control. Transition to Xarelto. - Echocardiogram obtained with EF of 50% but showing some inferoseptal wall motion abnormalities. This is changed from previous echo 1 week ago at outside hospital. - Cardiology recommends proceeding with left heart cath to evaluate for CAD when stable from his sepsis. Discussed case this morning. ANABELLE: Baseline 1.0, creatinine 1.3 this morning. BUN 40. Repeat labs ordered for the morning. DM -SSI insulin -A1C 7.0 COPD HLD HTN GOUT -Holding norvasc, statin, febuxostat due to sepsis; continuing duloxetine 60mg, ezetimibe 10mg, famotidine 40mg, and prednisone 20mg TOBACCO ABUSE: nicotine patch PRN OBESITY: complicates all aspects of care FULL CODE CARDIAC DIET DVT: Xarelto
[2024-01-03 21:25] LABS: POC Glucose,Bedside 179 (70-110)
[2024-01-03] MEDS: AZITHROMYCIN 500 MG in 0.9 % SODIUM CHLORIDE 250 ML 250 MG IV (23:00)
[2024-01-04] VITALS: BP 114/73; PULSE 83; PULSE 90; RESP 24; TEMP 36.6; O2SAT 92
[2024-01-04 04:00] VITALS: BP 117/79; PULSE 80; PULSE 81; RESP 28; TEMP 36.7; O2SAT 92; BMI 33.1
[2024-01-04] MEDS: PROMETHAZINE HCL 25MG/ML 1ML VIAL 25 MG IM (04:30)
[2024-01-04] MEDS: humaLOG 100 UNITS/ML 3ML VIAL (SSI) SQ ×2 (05:55→11:10)
[2024-01-04 06:30] VITALS: PULSE 91; PULSE 93; O2SAT 96
[2024-01-04] MEDS: IPRATROPIUM/ALBUTEROL 3 ML NEB IH (06:30)
[2024-01-04] MEDS: BUDESONIDE 0.5MG/2ML NEB 0.5 MG IH (06:31)
[2024-01-04 06:45] LABS: POC Glucose,Bedside 207 (70-110)
[2024-01-04 06:50] LABS: Basophils % 0.2 % (0.1-2.0); Chloride 111 mmol/L (98-107); Eosinophils % 0.1 % (0.1-12.0); Hematocrit 33.8 % (42.0-52.0); Lymphocytes # 0.8 K/mm3 (0.7-4.5); Lymphocytes % 3.4 % (10-50); Mean Corpuscular HGB Conc 32.5 g/dL (31.8-35.4); Mean Corpuscular Hemoglobin 29.9 pg (27.0-31.2); Mean Corpuscular Volume 91.9 fl (80-94); Mean Platelet Volume 8.9 fl (7.4-10.4); Monocytes # 0.7 K/mm3 (0.1-1.0); Neutrophils # 20.6 K/mm3 (1.8-7.8); Neutrophils % 93.3 % (37.0-80.0); Platelet Count 307 K/mm3 (142-424); Potassium 4.6 mmoL/L (3.5-5.1); Red Blood Count 3.68 M/mm3 (4.60-6.20); Red Cell Distribution Width 15.9 % (11.5-17.5); Sodium 136 mmol/L (136-145); White Blood Count 22.1 K/mm3 (4.8-10.8)
[2024-01-04 06:53] LABS: Alanine Aminotransferase 18 U/L (12-78); Albumin Level 2.5 g/dl (3.5-5.0); Albumin/Globulin Ratio 0.9 (1.1-1.8); Alkaline Phosphatase 72 U/L (38-126); Anion Gap 8.6 mEq/L (5-15); Aspartate Amino Transferase 23 U/L (17-59); Bilirubin,Total 0.3 mg/dl (0.2-1.3); Blood Urea Nitrogen 43 mg/dl (9-20); Carbon Dioxide 21 mmol/L (22.0-30.0); Creatinine Clearance Estimated 73 mL/min (50-200); Estimated Glomerular Filt Rate 59 ml/min (>60); GFR (African American) 71 ML/MIN (>60); Globulin 2.7 g/dL (1.3-3.2); MANUAL DIFFERENTIAL MANUAL DIFFERENTIAL (MANUAL DIFF); Total Protein,Serum 5.2 g/dl (6.3-8.2)
[2024-01-04 06:54] LABS: Calcium 8.4 mg/dl (8.4-10.2); Glucose 175 mg/dl (74-100); Magnesium 2.1 mg/dl (1.6-2.3)
[2024-01-04 08:00] VITALS: BP 116/53; PULSE 66; PULSE 80; RESP 20; TEMP 36.7; O2SAT 93; O2SAT 94
[2024-01-04 08:02] LABS: Lymphocytes % 5 % (10-50); Monocytes % 3 % (2-9); Neutrophils % 92 % (42-76); Total Cells Counted 100
[2024-01-04 08:03] LABS: Platelet Estimate Normal; RBC Morphology Normal
[2024-01-04] MEDS: CLOPIDOGREL 75MG TAB 75 MG PO (08:44)
[2024-01-04] MEDS: ASCORBIC ACID 500MG TAB 500 MG PO (08:44)
[2024-01-04] MEDS: EZETIMIBE 10MG TABLET 10 MG PO (08:44)
[2024-01-04] MEDS: FAMOTIDINE 20MG TABLET 20 MG PO (08:44)
[2024-01-04] MEDS: predniSONE 20MG TAB 20 MG PO (08:44)
[2024-01-04] MEDS: dilTIAZem ER 180 MG CAPSULE 360 MG PO (08:45)
[2024-01-04] MEDS: DULOXETINE 30MG CAPSULE.DR 60 MG PO (08:45)
[2024-01-04] MEDS: METOPROLOL SUCCINATE XL 25MG TABLET 25 MG PO (08:46)
--- NOTE | 2024-01-04 09:42 | EXP.PHA.PN ---
Subjective *Date: 01/04/24 *Time: 09:42 Medical Exam Vital signs and Labs for Last 24 Hours: Vital Signs Temp Pulse Pulse Resp BP Pulse Ox O2 Del Method 01/04/24 08:00 98.1 F 66 20 116/53 L 94 L Nasal Cannula 01/04/24 06:30 91 H 01/04/24 06:30 93 H 01/04/24 06:30 96 Nasal Cannula 01/04/24 04:00 80 01/04/24 00:00 90 01/04/24 06:56 Nasal Cannula 01/04/24 05:00 Nasal Cannula 01/04/24 04:00 98.0 F 81 28 H 117/79 92 L Nasal Cannula 01/04/24 03:00 Nasal Cannula 01/04/24 01:00 Nasal Cannula 01/04/24 00:00 98 F 83 24 114/73 92 L Nasal Cannula 01/03/24 23:00 Nasal Cannula 01/03/24 21:00 Nasal Cannula 01/03/24 23:31 89 01/03/24 23:31 92 H 01/03/24 20:00 Nasal Cannula 01/03/24 20:00 80 01/03/24 20:00 98.2 F 92 H 20 138/67 92 L Room Air 01/03/24 18:56 Nasal Cannula 01/03/24 18:28 81 01/03/24 18:28 96 H 01/03/24 18:28 94 L Nasal Cannula 01/03/24 17:00 Nasal Cannula 01/03/24 16:00 85 01/03/24 16:00 95 Nasal Cannula 01/03/24 15:47 98.0 F 97 H 25 H 133/78 91 L Nasal Cannula 01/03/24 15:00 Nasal Cannula 01/03/24 13:00 Nasal Cannula 01/03/24 11:00 Nasal Cannula 01/03/24 12:00 107 H 20 132/56 L 94 L Nasal Cannula 01/03/24 10:00 89 20 136/74 92 L Nasal Cannula 01/03/24 12:00 100 H 01/03/24 12:00 97.8 F 01/03/24 11:45 102 H 01/03/24 11:45 106 H O2 Flow Rate 01/04/24 08:00 2 01/04/24 06:30 01/04/24 06:30 01/04/24 06:30 2 01/04/24 04:00 01/04/24 00:00 01/04/24 06:56 2 01/04/24 05:00 2 01/04/24 04:00 2 01/04/24 03:00 2 01/04/24 01:00 2 01/04/24 00:00 2 01/03/24 23:00 2 01/03/24 21:00 2 01/03/24 23:31 01/03/24 23:31 01/03/24 20:00 2 01/03/24 20:00 01/03/24 20:00 01/03/24 18:56 2 01/03/24 18:28 01/03/24 18:28 01/03/24 18:28 2 01/03/24 17:00 2 01/03/24 16:00 01/03/24 16:00 2 01/03/24 15:47 2 01/03/24 15:00 2 01/03/24 13:00 2 01/03/24 11:00 2 01/03/24 12:00 2 01/03/24 10:00 4 01/03/24 12:00 01/03/24 12:00 01/03/24 11:45 01/03/24 11:45 Intake and Output 01/03/24 01/04/24 01/04/24 23:59 07:59 15:59 Intake Total 1000 / 2180 360 / 360 Output Total 700 / 2575 400 / 400 Balance 300 / -395 -400 / -40 360 / -40 Intake: Intake, Oral Amount 900 / 1830 360 / 360 Intake, Total IV Amount 100 / 350 Cefepime HCl 2 gm In 0.9 % 100 / 100 Sodium Chloride 100 ml @ 200 mls/hr IV Q12H [facility] Rx#:[id number] Output: Output, Urine Amount 700 / 2575 400 / 400 Other: Number of Voids 1 Number of Unmeasured Voids 0 0 Weight 101.605 kg 101.607 kg Patient Weight 01/04/24 23:59 Weight 101.607 kg Laboratory Results - last 24 hr 01/01/24 15:59: Fluid Culture Not indicated., Ur L.pneumophila Ag Negative, S. pneumoniae Antigen Negative, S. pneumoniae Ag Source Urine, Organism ID Not indicated. 01/03/24 06:38: Total Counted 100, Neutrophils % (Manual) 96 H, Lymphocytes % (Manual) 2 L, Monocytes % (Manual) 2, Platelet Estimate Normal, RBC Morphology Normal 01/03/24 10:57: POC Glucose 272 H 01/03/24 16:36: POC Glucose 243 H 01/03/24 21:18: POC Glucose 179 H 01/04/24 05:47: POC Glucose 207 H 01/04/24 05:53: WBC 22.1 H*, RBC 3.68 L, Hgb 11.0 L, Hct 33.8 L, MCV 91.9, MCH 29.9, MCHC 32.5, RDW 15.9, Plt Count 307, MPV 8.9, Neut % (Auto) 93.3 H, Lymph % (Auto) 3.4 L, [place] % (Auto) 3.0, Eos % (Auto) 0.1, Baso % (Auto) 0.2, Neut # (Auto) 20.6 H, Lymph # (Auto) 0.8, [place] # (Auto) 0.7, Eos # (Auto) 0.0, Baso # (Auto) 0.0, Total Counted 100, Neutrophils % (Manual) 92 H, Lymphocytes % (Manual) 5 L, Monocytes % (Manual) 3, Platelet Estimate Normal, RBC Morphology Normal, Sodium 136, Potassium 4.6, Chloride 111 H, Carbon Dioxide 21 L, Anion Gap 8.6, BUN 43 H, Creatinine 1.20, Estimated Creat Clear 73, Estimated GFR 59, Est GFR ( Amer) 71, Glucose 175 H, Calcium 8.4, Magnesium 2.1 D, Total Bilirubin 0.3, AST 23, ALT 18, Alkaline Phosphatase 72, Total Protein 5.2 L, Albumin 2.5 L, Globulin 2.7, Albumin/Globulin Ratio 0.9 L I & O for Labs for Last 24 Hours: Intake & Output 01/01/24 01/02/24 01/03/24 01/04/24 23:59 23:59 23:59 23:59 Intake Total 3581.063 / 4899.063 3727.139 / 4037.139 2180 / 2180 360 / 360 Output Total 216 / 216 876 / 876 2375 / 2575 400 / 400 Balance 3365.063 / 4683.063 2851.139 / 3161.139 -195 / -395 -40 / -40 Weight 99.065 kg 98.883 kg 101.605 kg 101.607 kg Microbiology Reports for the Last 24 Hours: Microbiology 01/01/24 01:13 Sputum - Expectorated Sputum Gram Stain - Final 01/01/24 01:13 Sputum - Expectorated Sputum Sputum Culture - Preliminary 01/01/24 01:03 Blood Blood Culture - Preliminary 01/01/24 01:03 Blood Blood Culture - Preliminary The patient's infection will respond to the chosen ABx?: Yes (AFEBRILE OVER 24 HOURS, SPUTUM = NORMAL HARDY, BLOOD CX = NO GROWTH AT 24HR) Is the patient receiving the right drug, dose, and route?: Yes Could a more targeted ABx be ordered?: No
[2024-01-04] MEDS: CEFEPIME HCL 2 GM in 0.9 % SODIUM CHLORIDE 100 ML IV (10:53)
[2024-01-04 11:08] LABS: POC Glucose,Bedside 190 (70-110)
[2024-01-04 12:00] VITALS: BP 139/62; PULSE 65; PULSE 79; RESP 20; TEMP 36.9; O2SAT 95
--- NOTE | 2024-01-04 12:03 | EXP.DC.SUM ---
General Admission date:: 01/01/24 Discharge date: 01/04/24 HPI HPI HPI: 78 year old male presented to [facility] ED w/ c/o body chills, sob, and feeling ill. PHMX of COPD, a fib, HTN, DM, CAD,and gout. Pt states his physicians are at [place]. He denies any chest pain or recent exposure to sickness. The ED work revealed a fib rvr, leukocytosis of 32.7, creatinine of 1.3, lactate of 2.7, and pneumonia located in the right middle lobe. The pt received two duonebs upon arrival to the ED. The pt meets sepsis criteria with a HR of 127, RR of 31, and leukocytosis of 32.7. His COVID/flu swab was negative in ED. The ED physician consulted the hospitalist team for further medical management. The pt had blood cultures obtain prior to be started on rocpehin and azithromycin. Upon admission assessment the pt appears to be resting comfortable. He is still tachycardia and tachypenic. He has bilateral lower leg edema. Hospital Course Hospital Course Hospital Course: 78 year old male presented to [facility] ED w/ c/o body chills, sob, and feeling ill. PHMX of COPD, a fib, HTN, DM, CAD,and gout. Pt states his physicians are at [place]. He denies any chest pain or recent exposure to sickness. The ED work revealed a fib rvr, leukocytosis of 32.7, creatinine of 1.3, lactate of 2.7, and pneumonia located in the right middle lobe. The pt received two duonebs upon arrival to the ED. The pt meets sepsis criteria with a HR of 127, RR of 31, and leukocytosis of 32.7. His COVID/flu swab was negative in ED. chest imaging concerning for airspace disease. The ED physician consulted the hospitalist team for further medical management. The pt had blood cultures obtain prior to be started on Rocephin and azithromycin. Initially on pressors, able to wean off during hospitalization. Oxygen weaned. Cardiology and pulmonology assisted with care. Meeting discharge criteria. Problems addressed as follows: Septic shock, resolved PNEUMONIA RESP FAILURE -Pulmonology consulted, appreciate their assistance. Patient was treated with cefepime and azithromycin. Overall doing well with improvement in white cell count and oxygen requirement. On room air by day of discharge. Given clinical improvement, plan to complete 7 days of antibiotics with cefepime. Has completed azithromycin course. Midline placed for administration of antibiotics as an outpatient. Will come into infusion as an outpatient. Will need repeat labs later this week to monitor CBC and BMP. Given his improvement on chest imaging, stability with resolution of oxygen requirement, and formal antibiotic plan, stable for discharge home to complete treatment as an outpatient. ATRIAL FIBRILLATION W/ RVR - HX of a fib. Home medication is diltiazem 360 and plavix 75mg. Patient's A-fib improved during admission. Cardiology was consulted to assist with care. Was initiated on digoxin, transitioned to metoprolol. Initially on low molecular weight heparin but was transition to Xarelto prior to discharge for anticoagulation. Echocardiogram obtained with EF of 50% but showing some inferoseptal wall motion abnormalities. This is changed from previous echo 1 week ago at outside hospital. Cardiology consulted and assisted with care. Recommend considering left heart cath. Will reevaluate at follow-up once sepsis and pneumonia have fully resolved. ANABELLE: Baseline 1.0, light ANABELLE during admission, improved to 1.2 by day of discharge. DM:A1C 7.0. Treated with insulin during admission, resume home regimen at discharge COPD HLD HTN GOUT -Holding norvasc, statin, febuxostat due to sepsis, resumed at discharge. Continued his duloxetine 60mg, ezetimibe 10mg, famotidine 40mg Spent 30 minutes in discharge counseling, documentation, chart review, and direct care with patient. Exam Data for Last 24 hours Vital signs and Labs for Last 24 Hours: Temp Pulse Resp BP Pulse Ox O2 Del Method O2 Flow Rate 98.1 F 66 20 116/53 L 93 L Room Air 2 01/04/24 08:00 01/04/24 08:00 01/04/24 08:00 01/04/24 08:00 01/04/24 08:00 01/04/24 11:00 01/04/24 08:00 FiO2 35 01/02/24 10:05 Laboratory Results - last 24 hr 01/01/24 15:59: Fluid Culture Not indicated., Ur L.pneumophila Ag Negative, S. pneumoniae Antigen Negative, S. pneumoniae Ag Source Urine, Organism ID Not indicated. 01/03/24 16:36: POC Glucose 243 H 01/03/24 21:18: POC Glucose 179 H 01/04/24 05:47: POC Glucose 207 H 01/04/24 05:53: WBC 22.1 H*, RBC 3.68 L, Hgb 11.0 L, Hct 33.8 L, MCV 91.9, MCH 29.9, MCHC 32.5, RDW 15.9, Plt Count 307, MPV 8.9, Neut % (Auto) 93.3 H, Lymph % (Auto) 3.4 L, [place] % (Auto) 3.0, Eos % (Auto) 0.1, Baso % (Auto) 0.2, Neut # (Auto) 20.6 H, Lymph # (Auto) 0.8, [place] # (Auto) 0.7, Eos # (Auto) 0.0, Baso # (Auto) 0.0, Total Counted 100, Neutrophils % (Manual) 92 H, Lymphocytes % (Manual) 5 L, Monocytes % (Manual) 3, Platelet Estimate Normal, RBC Morphology Normal, Sodium 136, Potassium 4.6, Chloride 111 H, Carbon Dioxide 21 L, Anion Gap 8.6, BUN 43 H, Creatinine 1.20, Estimated Creat Clear 73, Estimated GFR 59, Est GFR ( Amer) 71, Glucose 175 H, Calcium 8.4, Magnesium 2.1 D, Total Bilirubin 0.3, AST 23, ALT 18, Alkaline Phosphatase 72, Total Protein 5.2 L, Albumin 2.5 L, Globulin 2.7, Albumin/Globulin Ratio 0.9 L 01/04/24 10:55: POC Glucose 190 H I & O for Last 24 hours: Intake & Output 01/01/24 01/02/24 01/03/24 01/04/24 23:59 23:59 23:59 23:59 Intake Total 3581.063 / 4899.063 3727.139 / 4037.139 2180 / 2180 360 / 360 Output Total 216 / 216 876 / 876 2375 / 2575 400 / 400 Balance 3365.063 / 4683.063 2851.139 / 3161.139 -195 / -395 -40 / -40 Weight 99.065 kg 98.883 kg 101.605 kg 101.607 kg Microbiology Reports for the Last 24 Hours: Microbiology 01/01/24 01:13 Sputum - Expectorated Sputum Gram Stain - Final 01/01/24 01:13 Sputum - Expectorated Sputum Sputum Culture - Preliminary 01/01/24 01:03 Blood Blood Culture - Preliminary 01/01/24 01:03 Blood Blood Culture - Preliminary Constitutional Constitutional: no acute distress and obese *Routine HEENT Exam Head: Present normocephalic and atraumatic ENT: Present mucous membranes moist *Routine Neck Exam Neck: Present supple, full ROM and normal carotid upstroke; Absent JVD, carotid bruit or lymphadenopathy *Routine Respiratory Exam Respiratory: Present decreased breath sounds, wheezes, normal respiratory effort, able to speak in complete sentences and symmetric chest movement *Routine Cardiovascular Exam Cardiovascular: Present Normal S1, Normal S2, tachycardia and irregularly irregular; Absent murmur or gallop *Routine Abdominal Exam Abdominal: Present soft and normoactive bowel sounds; Absent tenderness, distended or organomegaly *Routine Extremities Exam Extremities: Present full ROM, pulses intact and normal capillary refill; Absent cyanosis, clubbing or edema *Routine Skin Exam Skin: Present intact and warm; Absent erythema *Routine Neurological Exam Neurological: Present alert, oriented X3 and CN II-XII intact; Absent sensory deficit or motor deficit Routine Psychiatric Exam Psychiatric: Present normal affect Results Data Completed and Pending Labs on day of discharge: Labs from last 24 hours 01/04/24 01/04/24 01/04/24 10:55 05:53 05:47 WBC 22.1 H* RBC 3.68 L Hgb 11.0 L Hct 33.8 L MCV 91.9 MCH 29.9 MCHC 32.5 RDW 15.9 Plt Count 307 MPV 8.9 Neut % (Auto) 93.3 H Lymph % (Auto) 3.4 L [place] % (Auto) 3.0 Eos % (Auto) 0.1 Baso % (Auto) 0.2 Neut # (Auto) 20.6 H Lymph # (Auto) 0.8 [place] # (Auto) 0.7 Eos # (Auto) 0.0 Baso # (Auto) 0.0 Total Counted 100 Neutrophils % (Manual) 92 H Lymphocytes % (Manual) 5 L Monocytes % (Manual) 3 Platelet Estimate Normal RBC Morphology Normal Sodium 136 Potassium 4.6 Chloride 111 H Carbon Dioxide 21 L Anion Gap 8.6 BUN 43 H Creatinine 1.20 Estimated Creat Clear 73 Estimated GFR 59 Est GFR ( Amer) 71 Glucose 175 H POC Glucose 190 H 207 H Calcium 8.4 Magnesium 2.1 D Total Bilirubin 0.3 AST 23 ALT 18 Alkaline Phosphatase 72 Total Protein 5.2 L Albumin 2.5 L Globulin 2.7 Albumin/Globulin Ratio 0.9 L Fluid Culture Ur L.pneumophila Ag S. pneumoniae Antigen S. pneumoniae Ag Source Organism ID 01/03/24 01/03/24 01/01/24 21:18 16:36 15:59 WBC RBC Hgb Hct MCV MCH MCHC RDW Plt Count MPV Neut % (Auto) Lymph % (Auto) [place] % (Auto) Eos % (Auto) Baso % (Auto) Neut # (Auto) Lymph # (Auto) [place] # (Auto) Eos # (Auto) Baso # (Auto) Total Counted Neutrophils % (Manual) Lymphocytes % (Manual) Monocytes % (Manual) Platelet Estimate RBC Morphology Sodium Potassium Chloride Carbon Dioxide Anion Gap BUN Creatinine Estimated Creat Clear Estimated GFR Est GFR ( Amer) Glucose POC Glucose 179 H 243 H Calcium Magnesium Total Bilirubin AST ALT Alkaline Phosphatase Total Protein Albumin Globulin Albumin/Globulin Ratio Fluid Culture Not indicated. Ur L.pneumophila Ag Negative S. pneumoniae Antigen Negative S. pneumoniae Ag Source Urine Organism ID Not indicated. Preliminary micro results at discharge 01/01/24 01:13 Sputum Culture - Preliminary Sputum - Expectorated Sputum 01/01/24 01:03 Blood Culture - Preliminary Blood 01/01/24 01:03 Blood Culture - Preliminary Blood DS: Diagnosis Discharge Diagnosis (1) Pneumonia: Status: Acute Code(s): J18.9 - Pneumonia, unspecified organism Qualifiers: Laterality: right Lung location: middle lobe of lung Pneumonia type: due to unspecified organism Qualified Code(s): J18.9 - Pneumonia, unspecified organism (2) Septic shock: Status: Resolved Code(s): A41.9 - Sepsis, unspecified organism; R65.21 - Severe sepsis with septic shock (3) Respiratory failure: Status: Resolved Code(s): J96.90 - Respiratory failure, unspecified, unspecified whether with hypoxia or hypercapnia Qualifiers: Chronicity: acute Respiratory failure complication: hypoxia Qualified Code(s): J96.01 - Acute respiratory failure with hypoxia (4) ANABELLE (acute kidney injury): Status: Resolved Code(s): N17.9 - Acute kidney failure, unspecified (5) Atrial fibrillation with rapid ventricular response: Status: Acute Code(s): I48.91 - Unspecified atrial fibrillation (6) COPD (chronic obstructive pulmonary disease): Status: Acute Code(s): J44.9 - Chronic obstructive pulmonary disease, unspecified Qualifiers: COPD type: unspecified COPD Qualified Code(s): J44.9 - Chronic obstructive pulmonary disease, unspecified (7) Diabetes: Status: Acute Code(s): E11.9 - Type 2 diabetes mellitus without complications Qualifiers: Diabetes mellitus complication status: without complication Diabetes mellitus longterm insulin use: without longterm use Diabetes mellitus type: type 2 Qualified Code(s): E11.9 - Type 2 diabetes mellitus without complications (8) HLD (hyperlipidemia): Status: Acute Code(s): E78.5 - Hyperlipidemia, unspecified Qualifiers: Hyperlipidemia type: mixed hyperlipidemia Qualified Code(s): E78.2 - Mixed hyperlipidemia (9) HTN (hypertension): Status: Acute Code(s): I10 - Essential (primary) hypertension Qualifiers: Hypertension type: primary hypertension Qualified Code(s): I10 - Essential (primary) hypertension (10) Gout: Status: Acute Code(s): M10.9 - Gout, unspecified (11) Obesity: Status: Acute Code(s): E66.9 - Obesity, unspecified Meds Home Medications and Allergies Home Medications Medication Instructions Recorded Confirmed Type amlodipine 5 mg tablet 5 mg PO DAILY Hypertension 01/01/24 01/01/24 History ascorbic acid (vitamin C) 500 mg 500 mg PO DAILY Supplement 01/01/24 01/01/24 History tablet (Vitamin C) clopidogrel 75 mg tablet 75 mg PO DAILY Blood Thinner 01/01/24 01/01/24 History dapagliflozin propanediol 10 mg 10 mg PO DAILY Diabetes 01/01/24 01/01/24 History tablet (Farxiga) diltiazem HCl 360 mg 360 mg PO DAILY Hypertension 01/01/24 01/01/24 History capsule,extended release 24 hr duloxetine 60 mg capsule,delayed 60 mg PO DAILY Depression 01/01/24 01/01/24 History release ezetimibe 10 mg tablet 10 mg PO DAILY Diabetes 01/01/24 01/01/24 History famotidine 40 mg tablet 40 mg PO BID GERD 01/01/24 01/01/24 History febuxostat 40 mg tablet 40 mg PO DAILY GOUT 01/01/24 01/01/24 History ferrous gluconate 324 mg (37.5 mg 324 mg PO DAILY Supplement 01/01/24 01/01/24 History iron) tablet pitavastatin calcium 4 mg tablet 4 mg PO HS Cholesterol 01/01/24 01/01/24 History metoprolol succinate 25 mg 25 mg PO DAILY 30 days #30 tabs 01/04/24 Rx tablet,extended release 24 hr nicotine 21 mg/24 hr daily 21 mg transdermal DAILYP PRN 01/04/24 Rx transdermal patch Nicotine Cravings 30 days #30 ea rivaroxaban 20 mg tablet 20 mg PO HS 30 days #30 tabs 01/04/24 Rx New Prescriptions to Start Prescriptions: metoprolol succinate Alin Meraz nicotine Alin Meraz rivaroxaban Alin Meraz Allergies Allergy/AdvReac Type Severity Reaction Status Date / Time shellfish derived Allergy Verified 01/01/24 00:43 Sulfa (Sulfonamide Allergy Verified 01/01/24 00:43 Antibiotics) Discharge Plan Disposition Patient Disposition: Home Health Service Condition: Fair Discharge Order Discharge Orders: Discharge Order (Routine); Ordered 01/04/24 Ordered By: Alin Meraz Follow up Plan Follow up with: Fabian Holliday MD [Staff Physician] - 01/10/24 1:30 pm Armando Reid MD [Staff Physician] - 01/14/24 2:30 pm Felipa Tamez MD [Physician] - 01/21/24 1:00 pm Prescriptions/Medication Reconciliation: New rivaroxaban 20 mg tablet 20 mg PO HS 30 Days Qty: 30 0RF nicotine 21 mg/24 hr Patch 24 Hour 21 mg transdermal DAILYP PRN (Reason: Nicotine Cravings) 30 Days Qty: 30 0RF metoprolol succinate 25 mg Tablet Extended Release 24 Hr 25 mg PO DAILY 30 Days Qty: 30 0RF Continued famotidine 40 mg Tablet 40 mg PO BID clopidogrel 75 mg Tablet 75 mg PO DAILY amlodipine 5 mg Tablet 5 mg PO DAILY ascorbic acid (vitamin C) [Vitamin C] 500 mg Tablet 500 mg PO DAILY duloxetine 60 mg Capsule,Delayed Release(Dr/Ec) 60 mg PO DAILY dapagliflozin propanediol [Farxiga] 10 mg Tablet 10 mg PO DAILY ezetimibe 10 mg Tablet 10 mg PO DAILY febuxostat 40 mg Tablet 40 mg PO DAILY pitavastatin calcium 4 mg Tablet 4 mg PO HS ferrous gluconate 324 mg (37.5 mg iron) Tablet 324 mg PO DAILY diltiazem HCl 360 mg capsule,extended release 24hr 360 mg PO DAILY Patient Comments: TAKE 1 CAPSULE BY MOUTH DAILY Discontinued prednisone 20 mg tablet 0 mg PO DAILY Patient Comments: TAKE 3 TABLETS BY MOUTH DAILY FOR 3 DAYS THEN 2 TABLETS DAILY FOR 3 DAYS FINISHING WITH 1 TABLET DAILY FOR 3 DAYS Rx Instructions: TAKE 3 TABLETS BY MOUTH DAILY FOR 3 DAYS THEN 2 TABLETS DAILY FOR 3 DAYS FINISHING WITH 1 TABLET DAILY FOR 3 DAYS (STARTED 12/26/23) Other Ambulatory Orders: Complete Blood Count Auto Diff (Routine) Timeframe: 1 Week Facility: [facility] - Location: Laboratory Ordered By: Alin Meraz Comprehensive Metabolic Panel (Routine) Timeframe: 1 Week Facility: [facility] - Location: Laboratory Ordered By: Alin Meraz Problem Reconciliation Problems Reviewed?: Yes Patient Discharge Instructions ACTIVITY: Continue current activity DIET: continue same diet Patient Instructions: DI for Pneumonia -- Adult, DI for Atrial Fibrillation, Peripherally Inserted Central Catheter Infections, DI for Sepsis -- Adult, DI for Acute Kidney Injury Providers Primary Care Provider: Provider,Referral Admit Provider: Jackeline Driscoll Attending Provider: Jackeline Driscoll
--- NOTE | 2024-01-04 13:22 | P.PN_ITS ---
Subjective Subjective Date: 01/04/24 Time: 10:30 Principal diagnosis: pneumonia, afib with rvr Interval history: This is a 78-year-old white gentleman who presented to the emergency department with shortness of breath, chills and not feeling well. He was found to have bilateral pneumonia and sepsis. The patient also was in atrial fibrillation with RVR. The patient has been treated with IV antibiotics and he is now on room air and feels so much better. He remains in atrial fibrillation but he is now rate controlled. He states that his shortness of breath has significantly improved. He is still short of breath with exertion but it is much better. He is now on room air. He denies any chest pain or pressure. He is still fatigued but this is improving as well. He denies any lower extremity edema. He denies any fever, chills, nausea, vomiting, diarrhea. Exam Data for Last 24 hours Vital signs and Labs for Last 24 Hours: Temp Pulse Resp BP Pulse Ox O2 Del Method O2 Flow Rate 98.5 F 79 20 139/62 95 Room Air 2 01/04/24 12:00 01/04/24 12:00 01/04/24 12:00 01/04/24 12:00 01/04/24 12:00 01/04/24 13:00 01/04/24 08:00 FiO2 35 01/02/24 10:05 Laboratory Results - last 24 hr 01/01/24 15:59: Fluid Culture Not indicated., Ur L.pneumophila Ag Negative, S. pneumoniae Antigen Negative, S. pneumoniae Ag Source Urine, Organism ID Not indicated. 01/03/24 16:36: POC Glucose 243 H 01/03/24 21:18: POC Glucose 179 H 01/04/24 05:47: POC Glucose 207 H 01/04/24 05:53: WBC 22.1 H*, RBC 3.68 L, Hgb 11.0 L, Hct 33.8 L, MCV 91.9, MCH 29.9, MCHC 32.5, RDW 15.9, Plt Count 307, MPV 8.9, Neut % (Auto) 93.3 H, Lymph % (Auto) 3.4 L, [place] % (Auto) 3.0, Eos % (Auto) 0.1, Baso % (Auto) 0.2, Neut # (Auto) 20.6 H, Lymph # (Auto) 0.8, [place] # (Auto) 0.7, Eos # (Auto) 0.0, Baso # (Auto) 0.0, Total Counted 100, Neutrophils % (Manual) 92 H, Lymphocytes % (Manual) 5 L, Monocytes % (Manual) 3, Platelet Estimate Normal, RBC Morphology Normal, Sodium 136, Potassium 4.6, Chloride 111 H, Carbon Dioxide 21 L, Anion Gap 8.6, BUN 43 H, Creatinine 1.20, Estimated Creat Clear 73, Estimated GFR 59, Est GFR ( Amer) 71, Glucose 175 H, Calcium 8.4, Magnesium 2.1 D, Total Bilirubin 0.3, AST 23, ALT 18, Alkaline Phosphatase 72, Total Protein 5.2 L, Albumin 2.5 L, Globulin 2.7, Albumin/Globulin Ratio 0.9 L 01/04/24 10:55: POC Glucose 190 H I & O for Last 24 hours: Intake & Output 01/01/24 01/02/24 01/03/24 01/04/24 23:59 23:59 23:59 23:59 Intake Total 3581.063 / 4899.063 3727.139 / 4037.139 2180 / 2180 960 / 960 Output Total 216 / 216 876 / 876 2375 / 2575 400 / 400 Balance 3365.063 / 4683.063 2851.139 / 3161.139 -195 / -395 560 / 560 Weight 218 lb 6.415 oz 218 lb 224 lb 0.011 oz 224 lb 0.081 oz Microbiology Reports for the Last 24 Hours: Microbiology 01/01/24 01:13 Sputum - Expectorated Sputum Gram Stain - Final 01/01/24 01:13 Sputum - Expectorated Sputum Sputum Culture - Preliminary 01/01/24 01:03 Blood Blood Culture - Preliminary 01/01/24 01:03 Blood Blood Culture - Preliminary Constitutional Constitutional: no acute distress and obese *Routine HEENT Exam Head: Present normocephalic and atraumatic ENT: Present mucous membranes moist *Routine Neck Exam Neck: Present supple, full ROM and normal carotid upstroke; Absent JVD, carotid bruit or lymphadenopathy *Routine Respiratory Exam Respiratory: Present decreased breath sounds, wheezes, normal respiratory effort, able to speak in complete sentences and symmetric chest movement *Routine Cardiovascular Exam Cardiovascular: Present Normal S1, Normal S2, tachycardia and irregularly irregular; Absent murmur or gallop *Routine Abdominal Exam Abdominal: Present soft and normoactive bowel sounds; Absent tenderness, distended or organomegaly *Routine Extremities Exam Extremities: Present full ROM, pulses intact and normal capillary refill; Absent cyanosis, clubbing or edema *Routine Skin Exam Skin: Present intact and warm; Absent erythema *Routine Neurological Exam Neurological: Present alert, oriented X3 and CN II-XII intact; Absent sensory deficit or motor deficit Routine Psychiatric Exam Psychiatric: Present normal affect Progress Note: A&P Assessment and plan (1) Pneumonia: Status: Acute (2) Septic shock: Status: Resolved (3) Respiratory failure: Status: Acute (4) ANABELLE (acute kidney injury): Status: Acute (5) Atrial fibrillation with rapid ventricular response: Status: Acute (6) COPD (chronic obstructive pulmonary disease): Status: Acute (7) Diabetes: Status: Acute (8) HLD (hyperlipidemia): Status: Acute (9) HTN (hypertension): Status: Acute (10) Obesity: Status: Acute Assessment and Plan Assessment and Plan for All Diagnoses:: Plan: 1. The patient was admitted to the hospital with acute respiratory failure with hypoxia, pneumonia and sepsis. The patient is getting IV antibiotics and on high flow oxygen. Will defer this to pulmonology and the hospitalist.. 2. The patient was in atrial fibrillation with RVR when he arrived at the hospital. He is now rate controlled on diltiazem and metoprolol. Tolerating these medications well. 3. The patient has been switched to Xarelto for long-term anticoagulation. He denies any bleeding. 4. His blood pressure is well-controlled today. 5. The patient's ejection fraction is approximately 50% on echocardiogram. He does have new regional wall motion abnormalities noted. The patient will need an ischemic evaluation once he has improved/recovered from his pneumonia and s epsis. This can be done on an outpatient basis. The patient is going to switch his cardiology care here to [facility] cardiology. Once he is discharged from the hospital he will need to proceed with left cardiac catheterization due to his new wall motion abnormalities noted on echocardiogram. 6. Following his left cardiac catheterization on an outpatient basis, if the patient remains in atrial fibrillation then we can consider FABIOLA/cardioversion at that time to try to get him back in sinus rhythm. 7. Coronary artery disease is present and as mentioned above recommend outpat ient left cardiac catheterization once he has recovered from pneumonia. Continue Plavix. 8. His LDL goal is less than 55. His LDL is less than 30. He is on Livalo on an outpatient basis. 9. The patient is diabetic. His hemoglobin A1c is 7%. He will need aggressive control of his diabetes. Defer management this to the hospitalist. 10. His renal function continues to improve. His creatinine is down to 1.2 today. 11. The patient does have a history of PAD with 2 stents in each of his bilateral lower extremities. Continue Plavix. 12. No further recommendations at this time from a cardiac standpoint. He is stable for discharge home today from a cardiac standpoint. The patient will need to be discharged on the following cardiac medications: Plavix 75 mg daily, diltiazem ER 360 mg p.o. daily, Zetia 10 mg daily, Pepcid 20 mg p.o. twice daily, Toprol XL 25 mg daily, Xarelto 20 mg in the evening with supper and atorvastatin calcium 4 mg p.o. nightly. The patient should not be on amlodipine. Thank you for the opportunity to help participate in the care of this patient. All recommendation and orders are per Dr. Purdy.
--- NOTE | 2024-01-04 13:29 | P.CONPHA_ITS ---
Pharmacy Intervention Comments: DISCHARGE MEDICATION COUNSELING PROVIDED TO PATIENT'S AND PATIENT. DISCUSSED STOPPING THE PREDNISONE AND STARTING THE FOLLOWING: -CEFEPIME (ANTIBIOTIC, EVERY 12 HOURS, ADMINISTERED VIA HOME HEALTH, WATCH FOR DIARRHEA) -METOPROLOL (FOR BLOOD PRESSURE/HEART RATE, DAILY, DIZZINESS, LIGHTHEADEDNESS, SLOWED HEART RATE, LOW BP, FATIGUE POSSIBLE) -NICOTINE PATCH (FOR SMOKING CESSATION, DAILY, REMOVE OLD PATCH BEFORE PLACING NEW ONE, REMOVE PRIOR TO IMAGINGE TO AVOID DEL RIO, ROTATE APPLICATION SITES TO A VOID IRRITATION) -XARLETO (BLOOD THINNER, DAILY, TAKE WITH FOOD/DINNER, BLEED/BRUISE RISK/LOCATION/APPEARANCE, IF YOU BUMP HEAD GO TO ER TO RULE OUT HEAD BLEED) PATIENT/ VERBALIZED NO QUESTIONS AT THIS TIME.
[2024-01-04] MEDS: FLU VACC QS2023-24(6MO+)/PF 60 MCG/0.5 ML SYRINGE IM (14:02)
[2024-01-04] MEDS: PNEUMOVAX 25MCG/0.5ML VIAL 0.5 ML IM (14:05)
--- NOTE | 2024-01-07 15:05 | CARE MANAGER ---
Spoke with patient and . He states that he is doing well. He is aware of follow up appointments. The wants to reschedule with Dr. Blankenship and I transferred her down to cardiology. Denies any other questions or concerns. RAMYA Coles
== END 2024-01-04 14:35 | disposition home health service (06) | DRG 871 ==
LOC: ER 01:13 → 2ND 03:07
PROVIDERS: Internal Medicine Adolescent Medicine; Internal Medicine Pulmonary Disease; Nurse Practitioner Critical Care Medicine; Nurse Practitioner Family; Admitting Provider Internal Medicine; Emergency Provider Emergency Medicine; Visit Provider Internal Medicine
DX: A41.9 Sepsis, unspecified organism (principal); J18.9 Pneumonia, unspecified organism; J96.01 Acute respiratory failure with hypoxia; R65.21 Severe sepsis with septic shock; N17.9 Acute kidney failure, unspecified; J44.0 Chronic obstructive pulmonary disease with (acute) lower respiratory infection; I48.91 Unspecified atrial fibrillation; E11.9 Type 2 diabetes mellitus without complications; E78.5 Hyperlipidemia, unspecified; I10 Essential (primary) hypertension; M10.9 Gout, unspecified; E66.9 Obesity, unspecified; Z68.33 Body mass index [BMI] 33.0-33.9, adult
CPT/HCPCS: 36569; 36410; 36415; 71045; 71250; 74176; 80048; 80053; 80061; 81001; 82803; 82962; 83036; 83605; 83735; 83880; 84484; 85007; 85025; 85378; 85730; 87040; 87070; 87205; 87506; 87636; 87899; 90732; 93005; 93306; 94640; 94660; 94760; 94761; 97116; 97163; 97166; 97530; 97535; 99291; C1751; J0456; J0696; J3475

== ENCOUNTER 2024-01-21 13:59 | Outpatient (CLI) | payer MEDICARE, SELFPAY ==
--- NOTE | 2024-01-21 14:04 | XR_ITS ---
FINAL REPORT CLINICAL HISTORY: liliya VILLANUEVA former smoker for 60 yrs COMPARISON: 01/03/2024 FINDINGS: PA and lateral views of the chest were obtained. The cardiac and mediastinal silhouettes are within normal limits. The lungs are clear. There is no pleural effusion or pneumothorax. The previously identified PICC line is no longer seen. No acute osseous abnormality is identified. IMPRESSION: No radiographic evidence of acute cardiac or pulmonary disease. Reviewed, Interpreted and Dictated by Lety Forrest MD Transcribed by Gala Galeana Authenticated and [facility]
== END 2024-01-21 23:59 ==
LOC: RAD 14:00
PROVIDERS: PCP Family Medicine; Visit Provider Internal Medicine Pulmonary Disease
DX: J18.9 Pneumonia, unspecified organism (principal); R06.02 Shortness of breath
CPT/HCPCS: 71046

== ENCOUNTER 2024-02-06 07:37 | Outpatient (CLI) | payer MEDICARE, SELFPAY ==
--- NOTE | 2024-02-06 | CA_ITS ---
APPROVED REPORT Exam: Pharmacologic Technologist: Marianne Macias, Ht: 5 ft 9 in Wt: 212 lbs BSA: 2.12 m2 HR: 65 bpm BP: 144/63 mmHg Rhythm: NSR, low voltafe QRS, PVCs Medical History Medications: Amlodipine,,,,, Aspirin,,,,, Metoprolol Succinate,,,,, CloPIdogrel,,,,, Famotidine,,,,, DulOXETINE,,,,, Vit C,,,,, Ezetimbe,,,,, Farixiga,,,,, Febuxostat,,,,, DilTiazem HCI,,,,, Pitavastatin calcium,,,,, Cardiac Risk Factors: HTN, Hyperlipidemia, FHX of CAD, Smoking Stress Test Details Test: LEXISCAN HR Resting HR: 66 bpm Max Heart Rate (APMHR): 142 bpm Max HR Achieved: 85 bpm Target HR (85% APMHR): 121 bpm % of APMHR: 60 Recovery HR: 84 bpm BP Resting BP: 144/63 mmHg Max BP: 148/64 mmHg Recovery BP: 148.0/64.0 mmHg ECG Resting ECG: NSR, low voltage QRS, PVCs Stress ECG: No significant ST changes Arrhythmia: PVCs Clinical Exercise duration: 04:00 min Highest Stage Achieved: Exercise capacity: 1.0 METs Stress ECG Conclusion During lexiscan pt experinced brief SOA and mild stomach discomfort. No CP noted. Occasional PVC noted. No significant ST changes. Conclusion: Unremarkable lexiscan stress. Myoview images reported separately. Test Summary REST . . . . . . . Sitting REST 04:09 . . 66 . 144/ 63 . . Stage 1 01:00 . . 74 . . . . Stage 2 01:00 . . 81 . . . . Stage 3 01:00 . . 79 . 136/ 61 . . Stage 4 01:00 . . 75 . 138/ 58 . Stop exercise at 04:00 RECOVERY 01:00 . . 83 . . . . RECOVERY 02:00 . . 84 . 148/ 64 . . RECOVERY 03:00 . . 78 . 148/ 64 . . RECOVERY 03:24 . . 81 . 145/ 58 . . Electronically signed by : Pattie Purdy MD 02/07/2024 15:18:00
--- NOTE | 2024-02-06 07:38 | NM_ITS ---
APPROVED REPORT Exam: Nuclear Stress Test Indication: HTN, DM, HYPERLIPIDEMIA, FM HX, SOB Patient Location: Outpatient Stress Tech: Marianne Macias NM Tech:Cata Haley MICKY RT (R)(N)(M) Ht: 5 ft 9 in Wt: 211 lbs HR: 65 bpm BP: 144/63 mmHg BSA: 2.11 m2 TID: 1.08 BMI: 31.1 History: HTN, DM, HYPERLIPIDEMIA, FM HX, SOB PT COULD NOT LAY ON STOMACH FOR PRONE IMAGES Procedure: Patient received 0.4 mg of intravenous Lexiscan, resting heart rate 65 bpm, resting blood pressure 144/63 mmHg, with Lexiscan maximum heart rate achieved was 84 bpm which is % of the maximum predicted heart rate and blood pressure was 140/59 mmHg. With Lexiscan, patient denied any complaint of chest pain. Cardiac Stress and Resting SPECT Images: Cardiac Stress and Resting SPECT images were obtained using technetium 99m Myoview 31.9 mCi stress and 10.55 mCi at rest. The patient could not lie on his abdomen. Therefore, prone stress imaging could not be performed. This may affect the diagnostic interpretation of the study findings. Resting and stress imaging in supine positions demonstrate no evidence of fixed or reversible perfusion defects. Gated imaging demonstrates mild reduction in global LV systolic function. LVEF is calculated at 46%. Conclusion: No evidence of fixed or reversible perfusion defects. Gated imaging demonstrates mild reduction in global LV systolic function. LVEF is calculated at 46%. Clinical correlation with TTE (and possibly CMR, if needed) is recommended. Electronically signed by : Pattie Purdy MD 02/07/2024 15:22:14
[2024-02-06] MEDS: SODIUM CHLORIDE 0.9% 10ML SYR (RAD ONLY) 10 ML IV ×2 (07:50→09:20)
[2024-02-06] MEDS: REGADENOSON 0.4MG/5ML SYRINGE 0.400000000000000022 MG IV (09:20)
[2024-02-06] MEDS: ISOTOPE MYOVIEW (PER STUDY) 1 DOSE IV (10:02)
== END 2024-02-06 23:59 ==
LOC: RAD 07:38
PROVIDERS: PCP Family Medicine; Visit Provider Internal Medicine
DX: R06.09 Other forms of dyspnea (principal); I50.30 Unspecified diastolic (congestive) heart failure; I48.0 Paroxysmal atrial fibrillation; R93.1 Abnormal findings on diagnostic imaging of heart and coronary circulation; I10 Essential (primary) hypertension; E78.2 Mixed hyperlipidemia; I25.10 Atherosclerotic heart disease of native coronary artery without angina pectoris; I73.9 Peripheral vascular disease, unspecified
CPT/HCPCS: 78452; 93017; 93018; A9502; J2785

== ENCOUNTER 2024-03-05 11:51 | Outpatient (CLI) | payer MEDICARE, SELFPAY ==
--- NOTE | 2024-03-05 11:52 | CT_ITS ---
APPROVED REPORT Electrical And Radio Mechanic: CLINICAL INDICATION Chest Pain TECHNIQUE Image Acquisition: A 128 slice MDCT scanner ([place] View) was used for data acquisition. A noncontrast coronary calcium scan was performed. A CT attenuation threshold of 130 Hounsfield units (HU) was used for the detection of calcium in contiguous voxels of 1 sq mm in area to be counted as individual lesions. Bolus tracking in the ascending aorta with a threshold of 180 HU was performed. Immediately afterwards, ECG synchronized cardiac CT was then performed from the cardiac base to apex using retrospective gating with ECG tube current modulation. A total of 85 mL of Isovue 370 mg/mL contrast medium was administered at 5 mL/sec followed by a saline flush using a biphasic injection protocol. A tube voltage of 120 KVp was used. The patient received the following medications prior to the cardiac CT. 75 mg of oral metoprolol 15 mg of oral ivabradine 0.8 mg of sublingual nitroglycerin The average heart rate at the time of acquisition was 50 bpm and regular. Image Reconstruction Transaxial images were reconstructed at 0.67 mm slide thickness. Data was reviewed interactively on an advanced workstation capable of 2 and 3-dimensional displays in all conventional reconstruction formats, including multiplanar reformations, maximum intensity projections, curved multiplanar reformations, and volume rendered reconstructions. When applicable, selected routine images describing the relevant coronary anatomy and pathology were saved and sent to PACS. Complications None Technical Quality Overall image quality was good. Coronary artery opacification was adequate. Total DLP (Dose-Length Product) is 1329.9 mGy-cm. The reported value represents the total of one or more individual components during the CT acquisition of this date and at this time, and as such, the same value may appear in more than one CT report depending on the interpreting/reporting physicians. COMPARISON None FINDINGS CT Coronary Calcium Scoring LMA (Left Main Artery) = 510 LAD (Left Anterior Descending) = 1070 LCX (Left Coronary Circumflex) = 730 RCA (Right Coronary Artery) = 89 Total Calcium Score = 2398 using the AJ-130 method. The observed calcium score of 2398 is at 89th percentile for subjects of the same age, sex, and race/ethnicity. The interpretation of the calcium heart score is based on the following continuum*: 0 = no calcified plaque detected (risk of coronary artery disease is very low ??? less than 5%) 1-10 = calcium detected in extremely minimal levels (risk of coronary diseases is still low ??? less than 10%) 11-100 = mild levels of plaque detected with certainty (mild or minimal narrowing of heart arteries is likely) 101-400 = definite,at least moderate levels of plaque detected (relatively high risk of a heart attack within 3-5 years) >401-999 = extensive levels of plaque detected (high risk of heart attack, high levels of vascular disease are present, high likelihood of at least one significant coronary narrowing) *The calcium heart score quantifies the burden of coronary calcification/plaque in the coronary arteries. The calcium heart score is not able to evaluate the presence or burden of non-calcified (i.e. soft) plaque. There is also identifiable calcification in the aortic valve, mitral annulus, and the ascending and descending thoracic aorta. Coronary CT Angiography The coronary arterial system is left dominant. Quantitative Stenosis Grading: Left Main (LM): The left main originates normally from the left sinus of Valsalva. The LM bifurcates into the left anterior descending artery and left circumflex artery. There is calcification noted at the ostial and proximal LM, with < 30% luminal stenosis. Left Anterior Descending (LAD) and Diagonal Branches: The LAD gives off 3 diagonal branch(es). There is calcification along the LAD, most notably in the proximal and mid segments with up to 50-70% luminal stenosis. There is no evidence of LAD-myocardial bridge. Left Circumflex (LCX) and Obtuse Marginals (OM): The LCX gives off 3 Obtuse Marginal (OM) branch(es). There is calcification noted in the proximal, mid and distal LCx, as well as OM branch, with up to 50-70% luminal stenosis. Right Coronary Artery (RCA): The RCA is a small caliber vessel. The RCA originates normally from the right sinus of Valsalva. There is calcification along the proximal and mid RCA with indeterminate degree of luminal stenosis in the setting of a very small vessel caliber. Non-Coronary Cardiac Findings: Analysis of the left ventricular (LV) structure and function was performed after 3-D reconstruction of the LV from axial images, with user-corrected automatic contouring for assessment of LV volumes and user-defined reconstruction from oblique planes for measurement of 3-D cardiac structure and function. -The left ventricle systolic function is low-normal (LVEF 51%). -There is no left atrial appendage filling defect. Two right pulmonary veins and two left pulmonary veins drain normally into the left atrium. -No pericardial thickening or calcification. -Central and branch pulmonary arteries in the [id number] are unremarkable. -Thoracic aorta within the visualized thoracic aortic-branches in the [id number] is unremarkable. Extracardiac Structures No significant extra-cardiac findings. Note, however, that this study is focused on the cardiac findings. IMPRESSION -Technically difficult study due to extensive degree calcification and blooming artifact along the coronary tree. -Extensive coronary calcification with an Agatston score = 2398 using the AJ-130 method. -The observed calcium score of 2398 is at 89th percentile for subjects of the same age, sex, and race/ethnicity. -Possible significant flow-limiting atherosclerosis of the coronary arteries in the proximal/mid LAD and proximal LCX/OM1. -CAD-RADS 3. Management recommendations per ACC/AHA guidelines*, as clinically appropriate. -The left ventricle systolic function is low-normal (LVEF 51%). *Recommendations: CAD RADS 0: Reassurance. Consider non-atherosclerotic causes of chest pain. CAD RADS 1: Consider non-atherosclerotic causes of chest pain. Consider preventive therapy and risk factor modification. CAD RADS 2: Consider non-atherosclerotic causes of chest pain. Consider preventive therapy and risk factor modification, particularly for patients with nonobstructive plaque in multiple segments. CAD RADS 3: Consider further functional testing. Consider symptom-guided anti-ischemic and preventive pharmacotherapy as well as risk factor modification per published guideline statements. CAD RADS 4A: Consider further functional testing or invasive coronary angiography with revascularization per published guideline statements. Consider symptom-guided anti-ischemic and preventive pharmacotherapy as well as risk factor modification per published guideline statements. CAD RADS 4B: Invasive coronary angiography recommended with revascularization per published guideline statements. Consider symptom-guided anti-ischemic and preventive pharmacotherapy as well as risk factor modification per published guideline statements. CAD RADS 5: Consider invasive angiography and/or viability assessment with revascularization per published guideline statements. Consider symptom-guided anti-ischemic and preventive pharmacotherapy as well as risk factor modification per published guideline statements. CRITICAL RESULT None COMMUNICATION Per this written report The coronary and cardiac findings of this CCTA were reviewed, reported, and signed by Emmett Purdy MD (Marketing Sales Representative) Conclusion Electronically signed by : Pattie Purdy MD 03/06/2024 13:27:48
[2024-03-05 12:05] VITALS: BMI 32.1
[2024-03-05] MEDS: IVABRADINE HCL 7.5MG TABLET PO (12:34)
[2024-03-05 12:35] VITALS: BP 117/73; PULSE 77; RESP 18; TEMP 36.3; O2SAT 95
[2024-03-05] MEDS: METOPROLOL TARTRATE 25MG TABLET 25 MG (12:35)
[2024-03-05] MEDS: METOPROLOL TARTRATE 50MG TABLET PO (12:35)
[2024-03-05 12:56] LABS: Chloride 107 mmol/L (98-107); Sodium 139 mmol/L (136-145)
[2024-03-05 12:57] LABS: Potassium 4.1 mmoL/L (3.5-5.1)
[2024-03-05 12:59] LABS: Blood Urea Nitrogen 20 mg/dl (9-20); Creatinine Clearance Estimated 71 mL/min (50-200); Estimated Glomerular Filt Rate 59 ml/min (>60); GFR (African American) 71 ML/MIN (>60)
[2024-03-05 13:00] LABS: Anion Gap 9.1 mEq/L (5-15); Calcium 9.7 mg/dl (8.4-10.2); Carbon Dioxide 27 mmol/L (22.0-30.0); Glucose 168 mg/dl (74-100)
[2024-03-05] MEDS: FAMOTIDINE 20MG/2ML VIAL 20 MG IV (13:07)
[2024-03-05] MEDS: diphenhydrAMINE 50MG/ML VIAL 25 MG IV (13:08)
[2024-03-05 13:45] VITALS: BP 132/78; PULSE 59; RESP 16; O2SAT 96
[2024-03-05] MEDS: NITROGLYCERIN 0.4MG SL TABLET SL (13:45)
[2024-03-05 13:50] VITALS: BP 90/49; PULSE 60
[2024-03-05 14:00] VITALS: BP 111/67; PULSE 58; RESP 16; O2SAT 94
[2024-03-05] MEDS: SODIUM CHLORIDE 0.9% 10ML SYR (RAD ONLY) 10 ML IV (14:06)
[2024-03-05] MEDS: 0.9 % SODIUM CHLORIDE 50 ML VIAL IV (14:06)
[2024-03-05] MEDS: IOPAMIDOL-370 (76%);100ML BOTTLE 85 ML IV (14:07)
[2024-03-05 14:13] VITALS: BP 119/71; PULSE 50; RESP 16; O2SAT 95
== END 2024-03-05 23:59 | disposition home or self-care (01) ==
PROVIDERS: PCP Family Medicine; Visit Provider Internal Medicine
DX: I50.30 Unspecified diastolic (congestive) heart failure (principal); I48.0 Paroxysmal atrial fibrillation; R06.09 Other forms of dyspnea; R93.1 Abnormal findings on diagnostic imaging of heart and coronary circulation; E66.9 Obesity, unspecified; I10 Essential (primary) hypertension; E78.2 Mixed hyperlipidemia; E11.9 Type 2 diabetes mellitus without complications; I73.9 Peripheral vascular disease, unspecified; I25.10 Atherosclerotic heart disease of native coronary artery without angina pectoris; Z68.31 Body mass index [BMI] 31.0-31.9, adult
CPT/HCPCS: 75571; 75574; 80048; Q9967

== ENCOUNTER 2024-03-14 09:48 | Outpatient (CLI) | payer MEDICARE, SELFPAY ==
[2024-03-14 10:35] VITALS: PULSE 68; PULSE 70
[2024-03-14] MEDS: ALBUTEROL 0.083% 2.5 MG/3 ML NEB IH (10:35)
== END 2024-03-14 23:59 | disposition home or self-care (01) ==
LOC: RT 09:48
PROVIDERS: PCP Family Medicine; Visit Provider Internal Medicine Pulmonary Disease
DX: R06.09 Other forms of dyspnea (principal); J44.9 Chronic obstructive pulmonary disease, unspecified; Z87.891 Personal history of nicotine dependence
CPT/HCPCS: 94060; 94618; 94640; 94726; 94729

== ENCOUNTER 2024-03-25 07:34 | Day surgery (SDC) | payer MEDICARE, SELFPAY ==
[2024-03-25] VITALS (14 sets, daily range): BP systolic 112–158; BP diastolic 53–80; PULSE 45–66; RESP 16–19; TEMP 36.4–36.6; O2SAT 92–95; BMI 31.8
--- NOTE | 2024-03-25 07:13 | IR_ITS ---
APPROVED REPORT Patient Location: Outpatient [place] Lead: MICKY Benites RT (R) PROCEDURES Left heart catheterization Left ventriculogram Selective coronary angiogram Intravascular ultrasound of the left main artery INDICATION Abnormal CCTA, Coronary artery disease, Angiographic ambiguity involving the left main artery Informed consent was obtained prior to the procedure. COMPLICATIONS NONE Estimated Blood Loss: LESS THAN 10 ML TECHNIQUE One percent lidocaine used to anesthetize the right anterior aspect of the wrist. The right radial artery was accessed via the Seldinger technique. A 6 Maldivian sheath was placed in the right radial artery. 2.5 mg of Verapamil, 800 mcg of nitroglycerin, 1mg Lidocaine and 5000 U Heparin were given through the arterial sheath. The papa catheter and 6 Maldivian JL 3 catheter were also used to perform left heart catheterization, left ventriculogram and selective coronary angiogram. At the end the diagnostic angiogram therapeutic heparin was administered giving a therapeutic ACT and the guide catheter was placed in the left main artery followed by Choice PT extra-support wire placed on the circumflex artery. Intravascular ultrasound probe was advanced which demonstrated a widely patent left main artery with minimal calcific intraluminal disease nothing greater than 10 to 20%. At the end the procedure the apparatus was removed the sheath was removed and hemostasis was achieved using TR banding patient was transferred to postop putting in stable condition ANGIOGRAPHIC RESULTS The left main artery Has an angiographic ambiguous stenosis which proved by IVUS to be 20% The left anterior descending artery Has proximal calcified 20% and mid vessel 20% stenoses. A large bifurcating first diagonal artery has proximal 20% stenosis with a 30% stenosis and an inferior bifurcating branch The circumflex artery Large dominant with proximal calcified 10 to 20% stenosis and mid vessel tubular 20% smooth calcified stenosis The right coronary artery Nondominant subtotally occluded proximally The AVILEZ ventriculogram reveals Preserved 55% The left ventricular end-diastolic pressure 15 mmHg IMPRESSION Mild nonflow limiting coronary artery disease Preserved ejection fraction Borderline LVEDP There was noted patient was experiencing intermittent 2-1 AV block PLAN 1. Consider Holter monitor or cardiac event monitor if syncope or dizziness is present 2. Medical management for coronary artery disease 3. Aggressive risk factor modification Electronically signed by : Armando Reid MD 03/25/2024 10:36:10
[2024-03-25 08:32] LABS: Basophils # 0.1 K/mm3 (0-0.2); Basophils % 0.8 % (0.1-2.0); Eosinophils # 0.2 K/mm3 (0.0-0.4); Eosinophils % 1.4 % (0.1-12.0); Hematocrit 39.6 % (42.0-52.0); Hemoglobin 12.5 g/dL (14.1-18.0); Lymphocytes # 2.3 K/mm3 (0.7-4.5); Lymphocytes % 14.9 % (10-50); Mean Corpuscular HGB Conc 31.6 g/dL (31.8-35.4); Mean Corpuscular Hemoglobin 29.8 pg (27.0-31.2); Mean Corpuscular Volume 94.2 fl (80-94); Mean Platelet Volume 7.7 fl (7.4-10.4); Monocytes # 0.8 K/mm3 (0.1-1.0); Monocytes % 5.4 % (1.7-9.3); Neutrophils # 11.8 K/mm3 (1.8-7.8); Neutrophils % 77.5 % (37.0-80.0); Platelet Count 482 K/mm3 (142-424); Red Cell Distribution Width 16.6 % (11.5-17.5); White Blood Count 15.2 K/mm3 (4.8-10.8)
[2024-03-25 08:35] LABS: MANUAL DIFFERENTIAL MANUAL DIFFERENTIAL (MANUAL DIFF)
[2024-03-25 08:44] LABS: Chloride 108 mmol/L (98-107); Potassium 4.5 mmoL/L (3.5-5.1); Sodium 140 mmol/L (136-145)
[2024-03-25 08:47] LABS: Anion Gap 12.5 mEq/L (5-15); Blood Urea Nitrogen 19 mg/dl (9-20); Carbon Dioxide 24 mmol/L (22.0-30.0); Creatinine Clearance Estimated 60 mL/min (50-200); Estimated Glomerular Filt Rate 49 ml/min (>60); GFR (African American) 59 ML/MIN (>60)
[2024-03-25 08:48] LABS: Calcium 9.9 mg/dl (8.4-10.2); Glucose 164 mg/dl (74-100)
[2024-03-25 08:52] LABS: Lymphocytes % 17 % (10-50); Monocytes % 4 % (2-9); Neutrophils % 79 % (42-76); Platelet Estimate Slight Increase; RBC Morphology Normal; Total Cells Counted 100
[2024-03-25] MEDS: VERAPAMIL 2.5MG/ML 2ML VIAL 2.5 MG IV (09:56)
[2024-03-25] MEDS: 0.9 % SODIUM CHLORIDE 500 ML 25 ML IV (09:56)
[2024-03-25] MEDS: HEPARIN 1,000 UNITS/ML 10ML VIAL (CATH LAB) 10000 UNIT IV ×2 (09:56→10:27)
[2024-03-25] MEDS: diphenhydrAMINE 50MG/ML VIAL 50 MG IV (09:56)
[2024-03-25] MEDS: HEPARIN 1,000 UNITS/500ML NS (CATH LAB) 3000 UNIT IV (09:56)
[2024-03-25] MEDS: LIDOCAINE 1% 10ML MDV 20 ML IJ (09:56)
[2024-03-25] MEDS: NITROGLYCERIN 800MCG/8ML SYR (CATH LAB) 800 MCG IA (09:57)
[2024-03-25] MEDS: MIDAZOLAM HCL 1MG/1ML 5ML VIAL 1 MG IV (10:12)
[2024-03-25] MEDS: FENTANYL 100MCG/2ML VIAL 50 MCG IV (10:12)
[2024-03-25] MEDS: IOPAMIDOL-370 (76%);100ML BOTTLE 70 ML IV (11:01)
[2024-03-25 14:39] LABS: CATHL Activated Clotting Time 299 SEC (74-125)
== END 2024-03-25 14:19 | disposition home or self-care (01) ==
PROVIDERS: PCP Family Medicine; Visit Provider Internal Medicine
DX: I25.10 Atherosclerotic heart disease of native coronary artery without angina pectoris (principal); Z79.899 Other long term (current) drug therapy; I48.0 Paroxysmal atrial fibrillation; I11.0 Hypertensive heart disease with heart failure; I50.32 Chronic diastolic (congestive) heart failure; J44.9 Chronic obstructive pulmonary disease, unspecified; E11.9 Type 2 diabetes mellitus without complications; Z87.891 Personal history of nicotine dependence; E78.5 Hyperlipidemia, unspecified; R93.1 Abnormal findings on diagnostic imaging of heart and coronary circulation
CPT/HCPCS: 80048; 85007; 85025; 85347; 92978; 93458; 99152; 99153; C1725; C1769; J1644; Q9967

== ENCOUNTER 2024-04-23 09:33 | Outpatient (CLI) | payer MEDICARE, SELFPAY ==
[2024-04-23 16:36] LABS: Basophils # 0.1 K/mm3 (0-0.2); Basophils % 0.8 % (0.1-2.0); Eosinophils # 0.3 K/mm3 (0.0-0.4); Eosinophils % 1.7 % (0.1-12.0); Hematocrit 43.6 % (42.0-52.0); Hemoglobin 13.3 g/dL (14.1-18.0); Lymphocytes # 2.4 K/mm3 (0.7-4.5); Lymphocytes % 16.6 % (10-50); Mean Corpuscular HGB Conc 30.6 g/dL (31.8-35.4); Mean Corpuscular Hemoglobin 28.3 pg (27.0-31.2); Mean Corpuscular Volume 92.4 fl (80-94); Mean Platelet Volume 7.7 fl (7.4-10.4); Monocytes # 0.9 K/mm3 (0.1-1.0); Monocytes % 6.3 % (1.7-9.3); Neutrophils # 10.8 K/mm3 (1.8-7.8); Neutrophils % 74.6 % (37.0-80.0); Platelet Count 461 K/mm3 (142-424); Red Blood Count 4.71 M/mm3 (4.60-6.20); Red Cell Distribution Width 15.9 % (11.5-17.5); White Blood Count 14.5 K/mm3 (4.8-10.8)
[2024-04-23 17:00] LABS: Alanine Aminotransferase 18 U/L (12-78); Albumin Level 3.9 g/dl (3.5-5.0); Albumin/Globulin Ratio 1.5 (1.1-1.8); Alkaline Phosphatase 105 U/L (38-126); Aspartate Amino Transferase 21 U/L (17-59); Bilirubin,Total 0.4 mg/dl (0.2-1.3); Blood Urea Nitrogen 19 mg/dl (9-20); Calcium 10.1 mg/dl (8.4-10.2); Carbon Dioxide 25 mmol/L (22.0-30.0); Chloride 105 mmol/L (98-107); Estimated Glomerular Filt Rate 53 ml/min (>60); GFR (African American) 65 ML/MIN (>60); Globulin 2.6 g/dL (1.3-3.2); Glucose 157 mg/dl (74-100); Sodium 143 mmol/L (136-145); Total Protein,Serum 6.5 g/dl (6.3-8.2)
[2024-04-23 20:03] LABS: Hemoglobin A1C 6.8 % (4.0-6.0)
== END 2024-04-23 23:59 | disposition home or self-care (01) ==
LOC: LAB.DROPOF 04-25 09:34
PROVIDERS: PCP Family Medicine; Visit Provider Family Medicine
DX: R42 Dizziness and giddiness (principal); E11.9 Type 2 diabetes mellitus without complications; R10.9 Unspecified abdominal pain; M54.50 Low back pain, unspecified; Z79.899 Other long term (current) drug therapy
CPT/HCPCS: 80053; 83036; 85025; 87086

== ENCOUNTER 2024-05-27 14:43 | Outpatient (CLI) | payer MEDICARE, SELFPAY ==
[2024-05-27 15:45] LABS: Basophils # 0.1 K/mm3 (0-0.2); Basophils % 0.6 % (0.1-2.0); Eosinophils # 0.2 K/mm3 (0.0-0.4); Eosinophils % 1.3 % (0.1-12.0); Hematocrit 33.2 % (42.0-52.0); Lymphocytes % 17.1 % (10-50); Mean Corpuscular HGB Conc 36.2 g/dL (31.8-35.4); Mean Corpuscular Hemoglobin 32.8 pg (27.0-31.2); Mean Corpuscular Volume 90.8 fl (80-94); Mean Platelet Volume 7.5 fl (7.4-10.4); Monocytes # 0.9 K/mm3 (0.1-1.0); Monocytes % 7.3 % (1.7-9.3); Neutrophils # 8.7 K/mm3 (1.8-7.8); Neutrophils % 73.7 % (37.0-80.0); Platelet Count 427 K/mm3 (142-424); Red Blood Count 3.65 M/mm3 (4.60-6.20); Red Cell Distribution Width 16.5 % (11.5-17.5); White Blood Count 11.8 K/mm3 (4.8-10.8)
[2024-05-27 16:18] LABS: Anion Gap 11.2 mEq/L (5-15); Blood Urea Nitrogen 23 mg/dl (9-20); Calcium 9.9 mg/dl (8.4-10.2); Carbon Dioxide 27 mmol/L (22.0-30.0); Chloride 107 mmol/L (98-107); Estimated Glomerular Filt Rate 45 ml/min (>60); GFR (African American) 55 ML/MIN (>60); Glucose 158 mg/dl (74-100); Potassium 5.2 mmoL/L (3.5-5.1); Sodium 140 mmol/L (136-145)
== END 2024-05-27 23:59 | disposition home or self-care (01) ==
LOC: LAB 14:43
PROVIDERS: PCP Family Medicine; Visit Provider Internal Medicine
DX: I42.9 Cardiomyopathy, unspecified (principal); I50.30 Unspecified diastolic (congestive) heart failure; I48.0 Paroxysmal atrial fibrillation; R06.09 Other forms of dyspnea; R93.1 Abnormal findings on diagnostic imaging of heart and coronary circulation; E66.9 Obesity, unspecified; I10 Essential (primary) hypertension; E11.9 Type 2 diabetes mellitus without complications; E78.2 Mixed hyperlipidemia; I73.9 Peripheral vascular disease, unspecified; I25.10 Atherosclerotic heart disease of native coronary artery without angina pectoris; K21.9 Gastro-esophageal reflux disease without esophagitis
CPT/HCPCS: 36415; 80048; 85025

== ENCOUNTER 2024-06-04 15:15 | Outpatient (CLI) | payer MEDICARE, SELFPAY ==
[2024-06-04 16:20] LABS: Basophils # 0.1 K/mm3 (0-0.2); Basophils % 0.9 % (0.1-2.0); Eosinophils # 0.2 K/mm3 (0.0-0.4); Eosinophils % 1.6 % (0.1-12.0); Hematocrit 39.1 % (42.0-52.0); Hemoglobin 12.4 g/dL (14.1-18.0); Lymphocytes # 2.3 K/mm3 (0.7-4.5); Lymphocytes % 18.4 % (10-50); Mean Corpuscular HGB Conc 31.9 g/dL (31.8-35.4); Mean Corpuscular Volume 91.1 fl (80-94); Mean Platelet Volume 7.6 fl (7.4-10.4); Monocytes # 0.8 K/mm3 (0.1-1.0); Monocytes % 6.5 % (1.7-9.3); Neutrophils # 9.1 K/mm3 (1.8-7.8); Neutrophils % 72.6 % (37.0-80.0); Platelet Count 455 K/mm3 (142-424); Red Blood Count 4.29 M/mm3 (4.60-6.20); Red Cell Distribution Width 16.2 % (11.5-17.5); White Blood Count 12.5 K/mm3 (4.8-10.8)
[2024-06-04 16:32] LABS: Anion Gap 13.7 mEq/L (5-15); Blood Urea Nitrogen 30 mg/dl (9-20); Carbon Dioxide 25 mmol/L (22.0-30.0); Chloride 106 mmol/L (98-107); Estimated Glomerular Filt Rate 45 ml/min (>60); GFR (African American) 55 ML/MIN (>60); Glucose 172 mg/dl (74-100); Potassium 4.7 mmoL/L (3.5-5.1); Sodium 140 mmol/L (136-145)
== END 2024-06-04 23:59 | disposition home or self-care (01) ==
LOC: LAB 15:18
PROVIDERS: PCP Family Medicine; Visit Provider Physician Assistant
DX: E87.5 Hyperkalemia (principal); I27.20 Pulmonary hypertension, unspecified; R93.1 Abnormal findings on diagnostic imaging of heart and coronary circulation; I42.9 Cardiomyopathy, unspecified; Z87.09 Personal history of other diseases of the respiratory system; J43.9 Emphysema, unspecified; R06.09 Other forms of dyspnea
CPT/HCPCS: 36415; 80048; 85025

== ENCOUNTER 2024-06-06 07:26 | Outpatient (CLI) | payer MEDICARE, SELFPAY ==
--- NOTE | 2024-06-06 07:27 | CA_ITS ---
FINAL REPORT TECHNIQUE: Color Doppler, duplex Doppler and lacey scale sonography of the bilateral neck arterial vasculature was performed. Velocities were measured in the carotid arteries. Stenosis evaluation based on the validated velocity criteria. CLINICAL HISTORY: dizziness, bruit, occlusive PAD with stenting COMPARISON: None FINDINGS: The peak systolic velocity of the right common carotid artery is 71 cm/s. The peak systolic velocity of the right internal carotid artery is 361 cm/s and end diastolic velocity 94 cm/s. The ICA/CCA ratio is 5.5 to. A large amount of plaque is present. The right external carotid artery is patent. The right vertebral artery is patent with antegrade flow. The peak systolic velocity of the left common carotid artery is 107 cm/s. The peak systolic velocity of the left internal carotid artery is 152 cm/s and end diastolic velocity 15 cm/s. The ICA/CCA ratio is 2.05. A moderate amount of plaque is present. The left external carotid artery is patent.The left vertebral artery is patent with antegrade flow. IMPRESSION: Greater than 70% right carotid stenosis. Less than 50% left carotid stenosis. Bilateral patent vertebral arteries with antegrade flow. If indicated, CTA or MRA could further evaluate. Reviewed, Interpreted and Dictated by Adam Erwin III, MD Transcribed by Gianna Hooper Authenticated and [facility]
== END 2024-06-06 23:59 | disposition home or self-care (01) ==
LOC: RT 07:27
PROVIDERS: PCP Family Medicine; Visit Provider Internal Medicine
DX: R42 Dizziness and giddiness (principal)
CPT/HCPCS: 93880

== ENCOUNTER 2024-06-17 08:33 | Day surgery (SDC) | payer MEDICARE, SELFPAY ==
--- NOTE | 2024-06-17 07:12 | IR_ITS ---
APPROVED REPORT Patient Location: Outpatient PROCEDURES Right heart catheterization INDICATION Dyspnea, Pulmonary hypertension Informed consent was obtained prior to the procedure. COMPLICATIONS NONE Estimated Blood Loss: LESS THAN 10 ML TECHNIQUE One percent lidocaine was used to anesthetize the right anterior aspect of the neck. A member service representative needle was used to identify the right internal jugular vein. Following this a larger cannulation needle was used to cannulate the right internal jugular vein and a wire was passed into the vein. Prior to the 7 Pashto sheath being inserted the wire was confirmed under fluoroscopic guidance to be in the inferior vena cava. A 7 Pashto sheath was introduced and a [place] catheter was floated using hemodynamic waveforms in the pulmonary artery, right ventricle , and right atrium. Saturations were obtained in the pulmonary artery and the right atrium. At the end of the procedure the patient was transferred to the postop holding area in stable condition for sheath removal. ANGIOGRAPHIC RESULTS Right atrial pressure 5 mmHg Pulmonary artery pressure 32/17 mmHg Pulmonary artery occlusion pressure 10 mmHg Right atrial saturation 64% Pulmonary artery saturation 65% Aortic saturation 96% Hemoglobin 12.3 Cardiac output 5.1 L/min Cardiac index 2.4 IMPRESSION Mild pulmonary hypertension with normal left-sided filling pressures PLAN 1. Evaluation of noncardiac etiology for dyspnea Electronically signed by : Armando Reid MD 06/17/2024 11:28:49
[2024-06-17 08:54] VITALS: BMI 30.9
[2024-06-17 08:56] VITALS: BP 198/98; PULSE 71; RESP 17; TEMP 36.6; O2SAT 96
[2024-06-17 09:38] LABS: Anion Gap 18.4 mEq/L (5-15); Basophils # 0.1 K/mm3 (0-0.2); Blood Urea Nitrogen 25 mg/dl (9-20); Calcium 10.1 mg/dl (8.4-10.2); Carbon Dioxide 22 mmol/L (22.0-30.0); Chloride 104 mmol/L (98-107); Creatinine Clearance Estimated 51 mL/min (50-200); Eosinophils # 0.2 K/mm3 (0.0-0.4); Eosinophils % 1.3 % (0.1-12.0); Estimated Glomerular Filt Rate 42 ml/min (>60); GFR (African American) 51 ML/MIN (>60); Glucose 173 mg/dl (74-100); Hematocrit 38.2 % (42.0-52.0); Hemoglobin 12.3 g/dL (14.1-18.0); Mean Corpuscular HGB Conc 32.2 g/dL (31.8-35.4); Mean Corpuscular Hemoglobin 29.2 pg (27.0-31.2); Mean Corpuscular Volume 90.4 fl (80-94); Monocytes # 0.7 K/mm3 (0.1-1.0); Monocytes % 5.6 % (1.7-9.3); Neutrophils # 9.3 K/mm3 (1.8-7.8); Neutrophils % 76.1 % (37.0-80.0); Platelet Count 445 K/mm3 (142-424); Potassium 4.4 mmoL/L (3.5-5.1); Red Blood Count 4.23 M/mm3 (4.60-6.20); Red Cell Distribution Width 16.3 % (11.5-17.5); Sodium 140 mmol/L (136-145); White Blood Count 12.2 K/mm3 (4.8-10.8)
[2024-06-17] MEDS: LIDOCAINE 1% 10ML MDV 20 ML IJ (10:37)
[2024-06-17] MEDS: HEPARIN 1,000 UNITS/500ML NS (CATH LAB) 3000 UNIT IV (10:37)
[2024-06-17] MEDS: FAMOTIDINE 20MG/2ML VIAL 20 MG IV (10:37)
[2024-06-17] MEDS: diphenhydrAMINE 50MG/ML VIAL 50 MG IV (10:37)
[2024-06-17] MEDS: METHYLPREDNISOLONE SOD SUCC 125MG VIAL 125 MG IV (10:38)
[2024-06-17] MEDS: 0.9 % SODIUM CHLORIDE 500 ML 25 ML IV (10:38)
[2024-06-17] MEDS: MIDAZOLAM HCL 1MG/1ML 5ML VIAL 1 MG IV ×2 (10:39→11:11)
[2024-06-17] MEDS: FENTANYL 100MCG/2ML VIAL 25 MCG IV (10:39)
[2024-06-17 11:30] VITALS: BP 148/76; PULSE 69; PULSE 70; RESP 17; TEMP 36.6; O2SAT 96
[2024-06-17 11:35] VITALS: BP 147/75; PULSE 70; RESP 17; O2SAT 96
[2024-06-17 11:40] VITALS: BP 142/76; PULSE 68; RESP 16; O2SAT 97
[2024-06-17 11:45] VITALS: BP 140/73; PULSE 70; RESP 16; O2SAT 97
[2024-06-17 12:00] VITALS: BP 133/74; PULSE 69; RESP 17; O2SAT 98
[2024-06-17 12:24] LABS: CATHL Arterial O2 SAT 65 % (90-100); CATHL Venous O2 SAT 64 % (75-80)
== END 2024-06-17 12:29 | disposition home or self-care (01) ==
PROVIDERS: PCP Family Medicine; Visit Provider Internal Medicine
DX: I27.20 Pulmonary hypertension, unspecified (principal); I50.30 Unspecified diastolic (congestive) heart failure; I48.0 Paroxysmal atrial fibrillation; R06.09 Other forms of dyspnea; R93.1 Abnormal findings on diagnostic imaging of heart and coronary circulation; E66.9 Obesity, unspecified; I11.0 Hypertensive heart disease with heart failure; E11.9 Type 2 diabetes mellitus without complications; E78.2 Mixed hyperlipidemia; I73.9 Peripheral vascular disease, unspecified; I25.10 Atherosclerotic heart disease of native coronary artery without angina pectoris; I42.9 Cardiomyopathy, unspecified; R55 Syncope and collapse; Z68.30 Body mass index [BMI] 30.0-30.9, adult; Z79.84 Long term (current) use of oral hypoglycemic drugs; Z79.01 Long term (current) use of anticoagulants
CPT/HCPCS: 80048; 82810; 85025; 93451; 99152; C1894; J1200; J1644; J2250; J2919; J3010; S0028

== ENCOUNTER 2024-06-24 15:30 | Outpatient (CLI) | payer MEDICARE, SELFPAY ==
--- NOTE | 2024-06-24 15:30 | CT_ITS ---
FINAL REPORT TECHNIQUE: Axial images were obtained from the lung apex to the mid abdomen by computed tomography. Coronal reformatted images were obtained. Supine inspiration and expiration and prone inspiration hi-resolution images were obtained and reviewed. This study was performed with techniques to keep radiation doses as low as reasonably achievable, (ALARA). Individualized dose reduction techniques using automated exposure control or adjustment of mA and/or kV according to the patient''s size were employed. CLINICAL HISTORY: Abnormal ct; follow-up pneumonia, airspace disease, and exertional shortness of breath COMPARISON: 01/01/2024 FINDINGS: There is no axillary adenopathy. There is no hilar or mediastinal adenopathy. Heart size is normal. There is no pericardial or pleural effusion. The previously noted bibasilar consolidation has essentially resolved. There is no significant air trapping seen on the expiration images. There is a small area of groundglass opacity noted at the posterior left lower lobe on the pronation inspiration images best seen on image 35 of series 9. Limited images of the upper abdomen demonstrate a benign-appearing cyst in the right lobe of liver measuring 1.8 cm. There is also a benign-appearing cyst in the inferior right lobe of the liver measuring 2.4 cm. IMPRESSION: Minimal groundglass opacity left lung base may be related to nonspecific pneumonitis. Reviewed, Interpreted and Dictated by Wm Aldrich MD Transcribed by Gianna Hooper Authenticated and [facility]
== END 2024-06-24 23:59 | disposition home or self-care (01) ==
LOC: RAD 15:30
PROVIDERS: PCP Family Medicine; Visit Provider Internal Medicine Pulmonary Disease
DX: R91.1 Solitary pulmonary nodule (principal)
CPT/HCPCS: 71250

== ENCOUNTER 2024-08-10 09:17 | Emergency (ER) | payer MEDICARE, SELFPAY ==
[2024-08-10 09:25] VITALS: BP 120/51; PULSE 82; RESP 20; TEMP 36.8; O2SAT 96; BMI 30.7
--- NOTE | 2024-08-10 09:48 | ED_ITS ---
Discharge Plan Disposition Patient Disposition: Home, Self-Care Condition: Good Prescriptions Prescriptions: New azithromycin [Zithromax Z-Henrique] 250 mg tablet See Rx Instructions .ROUTE .COMPLEX 5 Days Qty: 6 0RF Rx Instructions: For 250 mg dose pack: take 500 mg today (day 1), then 250 mg for 4 days (days 2-5) No Action diltiazem HCl 360 mg capsule,extended release 24 hr 360 mg PO DAILY clopidogrel 75 mg tablet 75 mg PO DAILY pantoprazole 40 mg tablet,delayed release (DR/EC) 40 mg PO DAILY duloxetine 60 mg capsule,delayed release(DR/EC) 60 mg PO DAILY febuxostat 40 mg tablet 40 mg PO DAILY pitavastatin calcium 4 mg tablet 4 mg PO DAILY Referrals Follow up/Referrals: Fabian Holliday MD [Primary Care Provider] - See instructions Activity Restrictions/Add. Instructions Additional Instructions/Restrictions: *Monitor Temp, Over the counter Motrin or Tylenol as directed/as needed Tylenol every 4 hours and Motrin every 6 hours (as long as your family doctor has told you that you can take it) for fever or pain. and straight to ER if unable to lower temp less than 101.0 after medication given *Warm salt water gargles may help to soothe the throat *Throat Lozenges? *Warm fluids like tea with honey may help to soothe the throat? *Sleep elevated *Humidifier/Vaporizer *Your throat swab was sent for culture. Those results are typically sent to your primary care. Be sure to follow up in 2-3 days with your family doctor/primary care physician if no improvement so they can review those result and treat if necessary. If you don?t have a primary care doctor, I recommend you get one but in the mean time, you will have to return to a walk in clinic Follow up IMMEDIATELY for new or worsening symptoms or no Noticeable improvement over the next 48-72 hours. 911 for difficulty breathing or swallowing You were tested for today for COVID19 your test result should be back in the next 24 hours, you may check your results on the [facility] Clinical Impressions Clinical Impression: Pharyngitis Instructions Patient Instructions: Sore Throat Print Language Print Language: Indonesian Discharge ED Provider: Chelsi Almaguer [facility] HPI General Stated complaint: sore throat, congestion Time Seen by Provider: 08/10/24 09:48 History of Present Illness Provider Complaint: Patient states that he has been having really bad sore throat, hurts when he swallows and feels like razor blades in his throat, headache, chills and feeling achy, sister noticed he had very bad breath and smells like it did when her kids had strep throat and he sounds like his head is congested so she brought him Related Data Home Medications ?Medication ?Instructions ?Recorded ?Confirmed clopidogrel 75 mg tablet 75 mg PO DAILY 08/10/24 08/10/24 diltiazem HCl 360 mg capsule,24 360 mg PO DAILY 08/10/24 08/10/24 hr,extended release duloxetine 60 mg capsule,delayed 60 mg PO DAILY 08/10/24 08/10/24 release febuxostat 40 mg tablet 40 mg PO DAILY 08/10/24 08/10/24 pantoprazole 40 mg tablet,delayed 40 mg PO DAILY 08/10/24 08/10/24 release pitavastatin calcium 4 mg tablet 4 mg PO DAILY 08/10/24 08/10/24 Previous Rx's ?Medication ?Instructions ?Recorded azithromycin 250 mg tablet See Rx Instructions PO .COMPLEX 5 08/10/24 (Zithromax Z-Henrique) days #6 tabs Allergies Allergy/AdvReac Type Severity Reaction Status Date / Time shellfish derived Allergy Verified 07/30/24 12:57 Sulfa (Sulfonamide Allergy Verified 07/30/24 12:57 Antibiotics) [facility] Disclaimer: The information contained in this section may have been updated after the patient was seen, as this information can be updated by other users. Medical History Abnormal findings on diagnostic imaging of heart and coronary circulation History of COPD History of smoking 30 or more pack years Pulmonary emphysema Dyspnea on exertion (HFpEF) heart failure with preserved ejection fraction Paroxysmal A-fib Abnormal echocardiogram Peripheral arterial disease CAD in [place] artery Septic shock Acute respiratory failure with hypoxia Obesity Gout HTN (hypertension) HLD (hyperlipidemia) Diabetes COPD (chronic obstructive pulmonary disease) Atrial fibrillation with rapid ventricular response Pneumonia Respiratory failure Surgical History History of throat surgery History of surgery on lower extremity Family History Father Coronary artery disease Heart attack Social History Smoking Status: Former smoker smoking status stop date: 01/01/2024 alcohol intake: never substance use type: denies use current occupational status: retired Travel in the last 8 weeks: None household members: significant other housing: house marital status: single ROS Obtained: Yes All systems reviewed & no additional complaints except as documented and Yes Systems reviewed as appropriate & no additional complaints except as documented Constitutional Constitutional: Reports system reviewed and no additional complaints, except as documented, Reports as per HPI and Reports headache(s) ENT Ears, Nose, Mouth, and Throat: Reports system reviewed and no additional complaints, except as documented, Reports as per HPI, Reports headache(s), Reports nasal congestion and Reports sore throat Cardiovascular Cardiovascular: Reports system reviewed and no additional complaints, except as documented and Reports as per HPI Respiratory Respiratory: Reports system reviewed and no additional complaints, except as documented and Reports as per HPI Gastrointestinal Gastrointestingal: Reports system reviewed and no additional complaints, except as documented and as per HPI Neurologic Neurologic: Reports headache(s) Physical Exam General General appearance: alert and in no apparent distress ENT ENT exam: Present mucous membranes moist Expanded ENT Exam Nose exam: Present sinus tenderness Throat exam: Present other (Pharyngeal erythema noted with white patchy like areas noted) Respiratory Respiratory exam: Present normal lung sounds bilaterally; Absent respiratory distress or wheezes Cardiovascular Cardiovascular exam: Present regular rate, normal rhythm and normal heart sounds Neurological Exam Neurological exam: Present alert, oriented X3 and normal gait Medical Decision Making [place] Inquiry Pt receiving controlled substance: No [place] was queried for this patient: No Orders (Tests/Meds): ORDERS Category Date Time Status Rapid PCR Covid and Flu A/B Stat Lab 08/10/24 09:39 Ordered Medical Decision Narrative: Medication discussed with pharmacy
[2024-08-10 10:07] LABS: UTC Strep Screen (Rapid) Negative (Negative)
[2024-08-10 10:15] VITALS: BP 120/51; PULSE 82; RESP 20; TEMP 36.8; O2SAT 96
[2024-08-10 10:17] LABS: Influenza A, PCR Not Detected (NotDetected); Influenza B, PCR Not Detected (NotDetected)
[2024-08-10 12:13] LABS: Coronavirus 19, PCR Detected (NotDetected)
== END 2024-08-10 10:22 | disposition home or self-care (01) ==
PROVIDERS: Emergency Provider Nurse Practitioner; PCP Family Medicine
DX: U07.1 COVID-19 (principal); J02.8 Acute pharyngitis due to other specified organisms; R51.9 Headache, unspecified
CPT/HCPCS: 87636; 87880; 99204; 99212; G0463

== ENCOUNTER 2024-08-21 08:35 | Outpatient (RCR) | payer MEDICARE, SELFPAY | END 2024-08-26 11:24 | disposition home or self-care (01) | LOC: PT 08:35 | PROVIDERS: Visit Provider Family Medicine | DX: M79.605 Pain in left leg (principal); M48.00 Spinal stenosis, site unspecified | CPT/HCPCS: 97542 ==

== ENCOUNTER 2024-10-06 15:59 | Outpatient (CLI) | payer MEDICARE, SELFPAY ==
--- NOTE | 2024-10-06 16:03 | MR_ITS ---
PROCEDURE INFORMATION: Exam: MR Lumbar Spine Without Contrast Exam date and time: 10/06/2024 4:22 PM Age: 78 years old Clinical indication: Low back pain; Additional info: Spinal stenosis lumbar region TECHNIQUE: Imaging protocol: Magnetic resonance imaging of the lumbar spine without contrast. COMPARISON: CT ABDOMEN PELVIS WO CON 01/01/2024 12:10 PM FINDINGS: Bones/joints: The lumbar vertebral bodies are normal in height. Grade 1 anterolisthesis of L4 on L5. There is slight retrolisthesis of L5 on S1. Edema is seen within the bone marrow adjacent to the endplates at L3-L4, and extending into the left L4 pedicle. This edema is likely reactive or degenerative. Infection is considered less likely. There is no significant disc edema. A decrease in disc height is visualized with endplate irregularity, with preservation of endplate definition. Mild paravertebral edema is seen adjacent to the L3 and L4 vertebral bodies on the right side. There is mild convexity of the lumbar spine to the right. A T1 hyperintense hemangioma is visualized within the L1 vertebral body measuring 1.6 cm in diameter. Additional T1 hyperintense hemangiomas or focal depositions of fatty marrow are visualized within lumbar vertebral bodies. Mild bilateral sacroiliac arthropathy. Spinal cord: The distal end of the conus medullaris ends at L1, normal in position. Multilevel findings: Degenerative changes are noted diffusely within the lumbar spine, with a decrease in the T2 signal intensity of the discs, as well as disc bulge/osteophyte complexes. L1-L2: A broad-based disc bulge/osteophyte complex is visualized, largest on the right side. There is no significant spinal canal stenosis. Narrowing of the right lateral recess is visualized. Moderate right neural foraminal narrowing. There is slight narrowing of the inferior aspect of the left neural foramen. Bilateral facet arthropathy is identified. L2-L3: A decrease in disc height is visualized. Bilateral facet arthropathy with hypertrophy of the ligamentum flavum. Mild Modic endplate changes are identified. A broad-based disc bulge is visualized, with moderate narrowing of the thecal sac. There is narrowing of both lateral recesses. Moderate right and severe left neural foraminal narrowing identified. L3-L4: Bilateral facet arthropathy with hypertrophy of the ligamentum flavum. A broad-based disc bulge is visualized with prominence of posterior epidural fat. Severe narrowing of the thecal sac is visualized. The AP dimension of thecal sac measures 0.6 cm. Severe bilateral neural foraminal narrowing is visualized. L4-L5: Bilateral facet arthropathy with hypertrophy of the ligamentum flavum. A broad-based disc bulge is visualized, with moderate narrowing of the thecal sac. There is narrowing of both lateral recesses. Moderate right and mild left neural foraminal narrowing identified. L5-S1: Bilateral facet arthropathy. There is a broad-based disc bulge with right-sided disc protrusion extending into the right neural foramen causing moderate to severe right neural foraminal narrowing. This protrusion also causes narrowing of the right lateral recess. Severe left neural foraminal narrowing is visualized, with encroachment on the exiting left L5 nerve root. Soft tissues: See Bones/joints finding. Kidneys and ureters: A few small right renal cysts are identified. One of these cysts measures 7-8 mm in diameter. IMPRESSION: 1. Grade 1 anterolisthesis of L4 on L5. There is slight retrolisthesis of L5 on S1. 2. Edema is seen within the bone marrow adjacent to the endplates at L3-L4, and extending into the left L4 pedicle. This edema is likely reactive or degenerative. Infection is considered less likely. There is no significant disc edema. Mild paravertebral edema is seen adjacent to the L3 and L4 vertebral bodies on the right side. Clinical correlation recommended. 3. Degenerative changes are noted diffusely within the lumbar spine, as described above. 5. At L5-S1, there is a broad-based disc bulge with right-sided disc protrusion extending into the right neural foramen causing narrowing the right lateral recess and right neural foraminal narrowing. 6. Neural foraminal narrowing at all lumbar levels. 7. Mild bilateral sacroiliac arthropathy. 8. Additional findings described above.
== END 2024-10-06 23:59 | disposition home or self-care (01) ==
LOC: RAD 15:59
PROVIDERS: PCP Family Medicine; Visit Provider Physician Assistant Medical
DX: M48.062 Spinal stenosis, lumbar region with neurogenic claudication (principal); M51.360 Other intervertebral disc degeneration, lumbar region with discogenic back pain only; M47.816 Spondylosis without myelopathy or radiculopathy, lumbar region; M43.16 Spondylolisthesis, lumbar region
CPT/HCPCS: 72148

== ENCOUNTER 2024-11-12 11:40 | Outpatient (CLI) | payer MEDICARE, SELFPAY ==
[2024-11-12 19:31] LABS: Microalbumin/Creatinine Ratio 38.9
[2024-11-12 20:10] LABS: Creatinine,Urine Random 38 mg/dL (Not Estab.)
== END 2024-11-12 23:59 | disposition home or self-care (01) ==
LOC: LAB.DROPOF 11-13 12:13
PROVIDERS: PCP Family Medicine; Visit Provider Family Medicine
DX: E11.9 Type 2 diabetes mellitus without complications (principal)
CPT/HCPCS: 82043; 82570